=== PATIENT | male | born 1995 | race Caucasian/White ===

== ENCOUNTER 2024-04-07 21:22 | Emergency (ER) | payer OTHER, SELFPAY ==
--- NOTE | ~2024-04-07 | XR_ITS ---
EXAMINATION: XR chest 1V portable DATE: 04/08/2024 01:22 INDICATION: Chest pressure. TECHNIQUE: A single frontal view of the chest was obtained. COMPARISON: Chest 2 views 06/13/2006 FINDINGS: There is no pneumonia, pleural effusion, or pneumothorax. The heart size is normal. IMPRESSION: 1. No acute cardiopulmonary disease. Reviewed, dictated and finalized at location A. ITE[facility]
[2024-04-07 22:06] VITALS: BP 156/80; PULSE 95; RESP 18; TEMP 36.4; O2SAT 100
--- NOTE | 2024-04-07 22:06 | ECG_ITS ---
Test Date: 2024-04-07 22:12:51 Measurements Intervals [place] Rate: 100 P: 64 LA: 136 QRS: 70 QRSD: 97 T: 61 QT: 336 QTc: 433 Interpretive Statements SINUS TACHYCARDIA NONSPECIFIC ST AND T-WAVE ABNORMALITY ABNORMAL ECG No previous ECG available for comparison Electronically Signed On 04-08-2024 08:41:21 BUDGET CONTROLLER by Jm Kimbrough M.D.
[2024-04-08 00:47] VITALS: BP 157/77; PULSE 79; RESP 18; O2SAT 100
[2024-04-08 01:22] LABS: Basophils Absolute Auto 0.1 K/mm3 (0.0-0.1); Basophils Percent Auto 0.5 % (0.2-1.2); Eosinophils Percent Auto 0.1 % (0-4.4); Hematocrit 45.5 % (42.0-52.0); Hemoglobin 15.3 g/dL (14.0-18.0); Immature Granulocyte Absolute 0.02 K/mm3 (0.00-0.031); Immature Granulocyte Percent A 0.2 % (0-0.5); Lymphocytes Absolute Auto 1.65 K/mm3 (0.9-3.2); Lymphocytes Percent Auto 16.6 % (18.3-44.2); Mean Corpuscular HGB Conc 33.6 g/dl (32-36); Mean Corpuscular Hemoglobin 29.7 pg (26-34); Mean Corpuscular Volume 88.2 fl (80-100); Mean Platelet Volume 9.2 fl (7.4-10.4); Monocytes Absolute Auto 0.6 K/mm3 (0.1-0.6); Neutrophils Absolute Auto 7.6 K/mm3 (1.3-6.7); Neutrophils Percent Auto 76.6 % (45.5-73.1); Platelet Count Result 237 k/mm3 (150-375); Red Blood Count 5.16 M/mm3 (4.6-6.20); Red Cell Distribution Width 13.2 % (11.5-14.5)
[2024-04-08 01:36] LABS: Lipase 78 U/L (23-300)
[2024-04-08 01:38] LABS: Alanine Aminotransferase 16 U/L (6-50); Albumin Level 4.9 g/dL (3.5-5.1); Alkaline Phosphatase 55 U/L (38-126); Anion Gap 6 mmol/L (4-12); Aspartate Amino Transferase 21 U/L (17-59); Bilirubin,Total 0.7 mg/dL (0.2-1.3); Blood Urea Nitrogen 18 mg/dL (9-20); Calcium 9.8 mg/dL (8.4-10.2); Carbon Dioxide 26 mmol/L (22-30); Chloride 106 mmol/L (98-107); Creatine Kinase 68 U/L (55-170); Estimated CRCL calculation 114 ml/min; Estimated Glomerular Filt Rate > 60; Glucose 117 mg/dL (65-110); Magnesium 2.1 mg/dL (1.6-2.3); Sodium 138 mmol/L (137-145)
[2024-04-08 01:49] LABS: Troponin I < 0.012 ng/mL (0.000-0.034)
--- NOTE | 2024-04-08 01:54 | ED_ITS ---
HPI - General Adult General Chief complaint: Chest Pain Stated complaint: chest pain x3 days Time Seen by Provider: 04/08/24 00:59 History of Present Illness HPI narrative: Patient was 28-year-old gentleman who presents emergency department with chief complaint of chest discomfort. The patient states that he has has general pain all over has had 2/10 chest pain this states that has been going on for several days after he did a lot of chest exercises. The patient states he had an episode similar to this after he did chest exercises patient denies prior history of cardiac disease prior history for early cardiac disease Related Data Allergies Allergy/AdvReac Type Severity Reaction Status Date / Time No Known Allergies Allergy Verified 04/07/24 21:22 Review of Systems 2 Review of Systems: A 10 system review of systems was completed on the patient and is negative except for what is stated in the HPI. Nursing and ancillary documentation was reviewed. Exam 2 Narrative: GENERAL: Well-appearing, well-nourished, and in no acute distress. HEAD: Normocephalic, atraumatic. EYES: PERRLA and EOMI. ENT: Nares clear, no rhinorrhea or epistaxis. Mucous membranes moist. NECK: Supple. CHEST: Clear to auscultation. No respiratory distress. HEART: Regular rate and rhythm. No murmur heard. Normal peripheral pulses. ABDOMEN: Soft, nontender, nondistended, normal active bowel sounds. EXTREMITIES: Normal range of motion. No edema. SKIN: Warm, dry, no rash. NEURO: No focal deficits. Alert and oriented x3. PSYCH: Normal mood and affect. Course Vital Signs Vital signs: Vital Signs Temperature 36.4 C L 04/07/24 22:06 Pulse Rate 95 04/07/24 22:06 Respiratory Rate 18 04/07/24 22:06 Blood Pressure 156/80 H 04/07/24 22:06 Pulse Oximetry 100 04/07/24 22:06 Oxygen Delivery Room Air 04/07/24 22:06 Temperature 36.4 C L 04/07/24 22:06 Pulse Rate 79 04/08/24 00:47 Respiratory Rate 18 04/08/24 00:47 Blood Pressure 157/77 H 04/08/24 00:47 Pulse Oximetry 100 04/08/24 00:47 Oxygen Delivery Room Air 04/08/24 00:47 Medical Decision Making [facility] Narrative Medical decision making narrative: Differential diagnosis includes ACS, chest wall pain, musculoskeletal pain EKG showed no acute ischemic changes Initial troponin was negative electrolytes were within normal limits CBC was within normal limits Vital Signs Vital Signs: Vital Signs Temperature 36.4 C L 04/07/24 22:06 Pulse Rate 95 04/07/24 22:06 Respiratory Rate 18 04/07/24 22:06 Blood Pressure 156/80 H 04/07/24 22:06 Pulse Oximetry 100 04/07/24 22:06 Oxygen Delivery Room Air 04/07/24 22:06 Temperature 36.4 C L 04/07/24 22:06 Pulse Rate 79 04/08/24 00:47 Respiratory Rate 18 04/08/24 00:47 Blood Pressure 157/77 H 04/08/24 00:47 Pulse Oximetry 100 04/08/24 00:47 Oxygen Delivery Room Air 04/08/24 00:47 Lab Data 04/08/24 01:17 04/08/24 01:17 Labs: Lab Results 04/08/24 Range/Units 01:17 WBC 10.0 (4.5-10.0) K/mm3 RBC 5.16 (4.6-6.20) M/mm3 Hgb 15.3 (14.0-18.0) g/dL Hct 45.5 (42.0-52.0) % MCV 88.2 (80-100) fl MCH 29.7 (26-34) pg MCHC 33.6 (32-36) g/dl RDW 13.2 (11.5-14.5) % Plt Count 237 (150-375) k/mm3 MPV 9.2 (7.4-10.4) fl Immature Gran % (Auto) 0.2 (0-0.5) % Neut % (Auto) 76.6 H (45.5-73.1) % Lymph % (Auto) 16.6 L (18.3-44.2) % [place] % (Auto) 6.0 (2.6-8.5) % Eos % (Auto) 0.1 (0-4.4) % Baso % (Auto) 0.5 (0.2-1.2) % Lymph # (Auto) 1.65 (0.9-3.2) K/mm3 [place] # (Auto) 0.6 (0.1-0.6) K/mm3 Eos # (Auto) 0.0 (0-0.3) K/mm3 Baso # (Auto) 0.1 (0.0-0.1) K/mm3 Abs Immat Gran (auto) 0.02 (0.00-0.031) K/mm3 Absolute Neuts (auto) 7.6 H (1.3-6.7) K/mm3 Absolute Nucleated RBC 0.000 (0.0-0.012) K/mm3 Nucleated RBC % 0.0 (0.0-0.2) % Sodium 138 (137-145) mmol/L Potassium 4.0 (3.4-5.0) mmol/L Chloride 106 (98-107) mmol/L Carbon Dioxide 26 (22-30) mmol/L Anion Gap 6 (4-12) mmol/L BUN 18 (9-20) mg/dL Creatinine 1.00 (0.7-1.3) mg/dL Estim Creat Clear Calc 114 ml/min Estimated GFR > 60 (59 - ) Glucose 117 H (65-110) mg/dL Calcium 9.8 (8.4-10.2) mg/dL Magnesium 2.1 (1.6-2.3) mg/dL Total Bilirubin 0.7 (0.2-1.3) mg/dL AST 21 (17-59) U/L ALT 16 (6-50) U/L Alkaline Phosphatase 55 (38-126) U/L Total Creatine Kinase 68 (55-170) U/L Troponin I < 0.012 (0.000-0.034) ng/mL Total Protein 8.0 (6.3-8.2) g/dL Albumin 4.9 (3.5-5.1) g/dL Lipase 78 (23-300) U/L Discharge Plan Discharge Clinical Impression: Atypical chest pain Patient Disposition: Home, Self-Care Condition: Stable Instructions: Antibiotic Form Patient Language: Guinean Follow-up/Referrals: Dharmesh Bernard DO [Physician] - PHYSICIAN,FARM EQUIPMENT MECHANIC [Primary Care Provider] - Time of Disposition: 01:59
--- OUTSIDE RECORDS SUMMARY | 2024-04-15 02:49 | XMS_ITS | Clinical Summary ---
Author Organization [facility] Address [address] [place] [address] Care Team Providers Care City Detective Name Role Phone Prosper Charles MD Primary Care Provider [phone] Toñito Romeo MD Unavailable Source Comments [facility],non-owned Affiliates and Associated Physician Practices is amultiple site organization consisting of ambulatory clinics and hospital sitesin [place], [place], [place] and [place]. This disclosure is being madepursuant to the Care Everywhere program and may not contain all information available regarding this patient. Last updated 18.[facility] Allergies No known active allergies Medications Be aware that medications may not be up to date on this document. Always verify current medications with the patient. No known medications Active Problems Patient Care Coordination No te Formatting of this note migh t be different from the original. Echo every 2 years Last echo: 10-29-13 Due 2015 Scheduled: 10-20-15 Dexa Last dexa: 11-01-11 Due: 2017 Problem Noted Date Diagnosed Date Acute lymphoid leukemia in remission Family History Medical History Relation Name Comments Diabetes Maternal Grandfather Cancer Mother Diabetes Mother gestational Cancer Paternal Grandfather Relation Name Status Comments Maternal Grandfather Mother Paternal Grandfather Social History Tobacco Use Types Packs/Day Years Used Date Smoking Tobacco: Never Smokeless Tobacco: Never Alcohol Use Standard Drinks/Week Comments No 0 (1 standard drink = 0.6 oz pur e alcohol) Sex and Gender Information Value Date Recorded Sex Assigned at Not on file Gender Identity Not on file Sexual Orientation Not on file Last Filed Vital Signs Vital Sign Reading Time Taken Comments Blood Pressure 136/80 10/20/2015 3:00 PM CDT Pulse 109 10/20/2015 12:00 PM CDT Temperature 36.8 ??C (98.3 ??F) 10/20/2015 12:00 PM C DT Respiratory Rate 12 10/20/2015 12:00 PM CDT Oxygen Saturation 99% 10/20/2015 12:00 PM CDT Inhaled Oxygen Concentration - - Weight 67.6 kg (149 lb 0.5 oz) 10/20/2015 12:00 PM CDT Height 182.9 cm (6') 10/20/2015 12:00 PM CDT Body Mass Index 20.21 10/20/2015 12:00 PM CDT Plan of Treatment Health Maintenance Due Date Last Done Comments COVID-19 VACCINE (#1) 2001 PNEUMOCOCCAL VACCINE (1 of 2 - PCV) 2002 HIV SCREENING 09/06/2011 HEPATITIS C SCREENING 09/01/2014 DTAP/TDAP/TD VACCINES (1 - Tdap) 09/06/2015 HEPATITIS B VACCINE (1 of 3 - 19+ 3-dose series) 09/06/2015 ZOSTER VACCINE (1 of 2) 09/06/2015 DEPRESSION SCREENING 04/14/2023 INFLUENZA VACCINE (#1) 2023 HIB VACCINE Aged Out No longer eligi ble based on patient's age to complete this topic HPV VACCINE Aged Out No longer eligi ble based on patient's age to complete this topic MENINGOCOCCAL VACCINE Aged Out No magdalena marixa eligible based on patient's age to complete this topic Care Teams City Detective Relationship Specialty Start Date End Date Prosper Charles MD PCP - General Family Medicine 10/04/11 Toñito Romeo MD [address] [place] [address] Medical Administrator Pediatrics 10/04/11
--- OUTSIDE RECORDS SUMMARY | 2024-04-15 02:49 | XMS_ITS | Referral Summary ---
Author Organization [facility] Address [address] [place] [address] Care Team Providers Care Software Configuration Manager Name Role Phone Prosper Charles MD Primary Care Provider [phone] Toñito Romeo MD Unavailable Source Comments [facility],non-owned Affiliates and Associated Physician Practices is amultiple site organization consisting of ambulatory clinics and hospital sitesin [place], [place], [place] and [place]. This disclosure is being madepursuant to the Care Everywhere program and may not contain all information available regarding this patient. Last updated 18.[facility] [employer] Allergies No known active allergies Medications Be [...] Diagnosed Date Acute lymphoid leukemia in remission Social History Tobacco Use Types Packs/Day Years [...] 10/20/2015 12:00 PM CDT Plan of Treatment Not on file Care Teams Software Configuration Manager Relationship Specialty Start Date End Date Prosepr Charles MD PCP - General Family Medicine 10/04/11 Toñito Romeo MD [address] [place] [address] Supervisor Stave Cutting Pediatrics 10/04/11
--- OUTSIDE RECORDS SUMMARY | 2024-04-15 02:50 | XMS_ITS | Encounter Summary ---
Author Organization [facility] Address [address] [place] [address] Care Team Providers Care Dedicated Owner Operator Name Role Phone Prosper Charles MD Primary Care Provider Toñito Romeo MD Unavailable Encounter Details Date Type Department Care Team (Late st Contact Info) Description 10/29/2011 Orders Only [facility] at [address] [address] Diana Pollard RN Leukemia, acute, in remission (HCC) Social History Tobacco Use Types Packs/Day Years Used Date Smoking Tobacco: Never Smokeless Tobacco: Never Alcohol Use Standard Drinks/Week Comments No 0 (1 standard drink = 0.6 oz pur e alcohol) Sex and Gender Information Value Date Recorded Sex Assigned at Not on file Gender Identity Not on file Sexual Orientation Not on file documented as of this encounter Plan of Treatment Not on file documented as of this encounter Procedures Procedure Name Priority Date/Time Associated Diagnosis Comments DEXA BONE DENSITY AXIAL SKELETON Routine 11/01/2011 12:09 PM CDT Leukemia, acute, in remission (HCC) documented in this encounter Results * DEXA BONE DENSITY AXIAL SKELETON (11/01/2011 12:09 PM CDT) Anatomical Region Laterality Modality Radiographic Sushila ging 11/01/2011 1:20 PM CDT Impressions 11/01/2011 4:39 PM CDT No significant decrease in bone mineral density when compared with age-matched norms.. Dictated by Jose Armando Coulter M.D. Narrative 11/01/2011 4:39 PM CDT EXAM: Bone densitometry COMPARISON: None TECHNIQUE: [employer] A ([id number]) Software version 13.3 [facility] FINDINGS: Referring Physician: Toñito Romeo Patient age: 16 Gender: Male Height: 175 cm Weight: 56.7 kg Indication: Acute leukemia in remission Technical quality: Adequate Total Bone mineral content: 2269.62 g Total Bone mineral density: 1.130 g/cm2 Z-score: 1.0 Procedure Note [place] [place] - 11/01/2011 EXAM: Bone densitometry COMPARISON: None TECHNIQUE: [employer] A (S/[id number]) Software version 13.3 [facility] FINDINGS: Referring Physician: Toñito Romeo Patient age: 16 Gender: Male Height: 175 cm Weight: 56.7 kg Indication: Acute leukemia in remission Technical quality: Adequate Total Bone mineral content: 2269.62 g Total Bone mineral density: 1.130 g/cm2 Z-score: 1.0 IMPRESSION No significant decrease in bone mineral density when compared with age-matched norms.. Dictated by Jose Armando Coulter M.D. Toñito Romeo MD DEXA ORDERABLES documented in this encounter Visit Diagnoses Diagnosis Leukemia, acute, in remission (HCC)- Primary Acute leukemia of unspecified cell type in remission Leukemia, acute, in remission (HCC) Acute leukemia of unspecified cell type in remission documented in this encounter Care Teams Dedicated Owner Operator Relationship Specialty Start Date End Date Prosper Charles MD PCP - General Family Medicine 10/04/11 Toñito Romeo MD [address] [place] [id number] Swinging Cut Off Saw Operator Pediatrics 10/04/11 documented as of this encounter
--- OUTSIDE RECORDS SUMMARY | 2024-04-15 02:50 | XMS_ITS | Encounter Summary ---
Author Organization [facility] Address [address] [place] [address] Care Team Providers Care Gym Manager Name Role Phone Prosper Charles MD Primary Care Provider Toñito Romeo MD Unavailable Reason for Visit * Reason Onset Date Comments Vaccine Question 05/04/2020 Encounter Details Date Type Department Care Team (Late st Contact Info) Description 05/04/2020 Telephone [facility] at [address] [id number] Diana Pollard, RN Vaccine Question Social History Tobacco Use Types Packs/Day Years Used Date Smoking Tobacco: Never Smokeless Tobacco: Never Alcohol Use Standard Drinks/Week Comments No 0 (1 standard drink = 0.6 oz pur e alcohol) Sex and Gender Information Value Date Recorded Sex Assigned at Not on file Gender Identity Not on file Sexual Orientation Not on file documented as of this encounter Miscellaneous Notes * Telephone Encounter - Diana Pollard RN - 05/04/2020 10:01 AM CST Returned moms call regarding Yaya getting a Covid vaccine. There are no contraindications to Yaya receiving the vaccine, mom receptive to this. Yaya has not been seen in [facility] since 2016 and does not regularly see his PCP. Has not had blood work since last visit. Reviewed recommendations for follow-up with mom, including recommended testing. Mom will discuss with Yaya and email me to schedule an appointment. EN BARREL MECHANIC documented in this encounter Plan of Treatment Not on file documented as of this encounter Visit Diagnoses Not on filedocumented in this encounter Care Teams Gym Manager Relationship Specialty Start Date End Date Prosper Charles MD PCP - General Family Medicine 10/04/11 Toñito Romeo MD [address] [place] [address] Applications Support Specialist Pediatrics 10/04/11 documented as of this encounter
--- OUTSIDE RECORDS SUMMARY | 2024-04-15 02:50 | XMS_ITS | Encounter Summary ---
Author Organization [facility] Address [address] [place], [place] [id number] Care Team Providers Care Compressor Repairer Name Role Phone Unknown, Notinfile Primary Care Provider Unavail able Encounter Details Date Type Department Care Team (Late st Contact Info) Description 08/26/2018 10:20 PM CDT Lab [address] [address] Social History Tobacco Use Types Packs/Day Years Used Date Smoking Tobacco: Never Assessed Sex and Gender Information Value Date Recorded Sex Assigned at Not on file Legal Sex Male 11:51 PM PRODUCTION DESIGNER Gender Identity Not on file Sexual Orientation Not on file documented as of this encounter Plan of Treatment Not on file documented as of this encounter Procedures Procedure Name Priority Date/Time Associated Diagnosis Comments VARICELLA ZOSTER ANTIBODY, IGG Routine 08/26/2018 9:00 AM CDT documented in this encounter Results * Varicella zoster antibody, IgG (08/26/2018 9:00 AM CDT) VZV IgG Negative Negative [facility] Comment: Interpretive Data Negative: ??No detectable antibody to Varicella-zoster ? virus. ??Such individuals ? are presumed to be uninfected with VZV and to ? be susceptible to primary infection. Equivocal: Presence or absence of detectable antibodies ? to VZV IgG cannot be determined and the test ? should be repeated. Positive: ??Indicated presence of detectable antibody to ? VZV. ??Indicative of current ? or previous infection or vaccination. Current interpretive data was last revised on 2016. Blood specimen (specimen) 08/26/2018 9:00 AM CDT 08/26/2018 10:18 PM CDT Narrative [facility] - 08/27/2018 10:53 AM CDT us Jaden Lombardo MD LAB MICROBIOLOGY - GENERAL OR DERABLES Final Result [facility] [place] [address] documented in this encounter Visit Diagnoses Not on filedocumented in this encounter Care Teams Compressor Repairer Relationship Specialty Start Date End Date Unknown, Notinfile PCP - General 08/26/18 documented as of this encounter
--- OUTSIDE RECORDS SUMMARY | 2024-04-15 02:50 | XMS_ITS | Encounter Summary ---
Author Organization [facility] Address [address] [place] [address] Care Team Providers Care Rattlesnake Farmer Name Role Phone Prosper Charles MD Primary Care Provider [phone] Encounter Details Date Type Department Care Team (Late st Contact Info) Description 10/01/2011 Orders Only [facility] at [address] [address] Diana Pollard, RN Leukemia, acute lymphoid, in remission (HCC) Social History Tobacco Use [...] documented as of this encounter Visit Diagnoses Diagnosis Leukemia, acute lymphoid, in remission (HCC)- Primary Acute lymphoid leukemia in remission documented in this encounter Care Teams Rattlesnake Farmer Relationship Specialty Start Date End Date Prosper Charles MD [address] [place] [address] PCP - General 05/11/09 10/03/11 documented as of this encounter
--- OUTSIDE RECORDS SUMMARY | 2024-04-15 02:50 | XMS_ITS | Encounter Summary ---
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) Procedures ECHO CONSULT - PEDIATRIC Toñito Romeo MD [address] [place] [address] Referral ID Status Reason Start Date Expiration Date Visits Re quested Visits Authorized [id number] Closed 09/15/2015 03/13/2016 1 1 Reason for Visit * Cardiac (Routine) - Closed Specialty Diagnoses / Procedures Referred By Alberta campos Referred To Contact Cardiology Diagnoses 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 Stat.:Outpatient Room: ECHO ONLY Reason for Study:Evaluate function. Chemo F/U History / Clinical:2-d echo with doppler and color-flow Procedures:2D Non-congenital, Doppler Complete, Color Flow Visit ID: [id number] SUMMARY: Impression: Structurally normal heart. Normal biventricular systolic function. Findings: Anatomic Relationships: Abdominal situs not evaluated. There is levocardia. Atrial situs solitus. The AV alignment is concordant. The ventricular looping is D-looped. The VA connection is concordant. The arterial relationships are normal. Systemic Veins: Normal right SVC. Normal IVC. Pulmonary Veins: Pulmonary veins drain normally to LA. Right Atrium: The right atrial size is normal. Left Atrium: The left atrial size is normal. Atrial Septum: Intact atrial septum. Left to right atrial shunt, none. Tricuspid Valve: The tricuspid valve is structurally normal. There is no stenosis. There is physiologic regurgitation present. Mitral Valve: The mitral valve is structurally normal. There is no stenosis. There is no regurgitation present. Right Ventricle: The cavity size is normal. The wall thickness is normal. The systolic function is normal. RV Outflow Tract: The outflow tract is normal. Left Ventricle: The cavity size is normal. The wall thickness is normal. The systolic function is normal. LV Outflow Tract: The outflow tract is normal. Ventricular Septum: The septal motion is normal. There is no defect with no shunting. Pulmonary Valve: The pulmonic valve is structurally normal. There is no stenosis. There is physiologic regurgitation present. Aortic Valve: The aortic valve is structurally normal. There is no stenosis. There is no regurgitation present. Pulmonary Artery: The MPA is normal. The LPA is normal. The RPA is normal. Aorta: The aortic root is normal. The aortic arch is patent. The arch sidedness is not evaluated. PDA: No PDA with no shunting. Coronary Arteries: Not visualized. Pericardium: No pericardial effusion. MEASUREMENTS: MMODE Ventricular Septum IVSd 8.1 mm (zsc -1.2) IVSs 10 mm (zsc -1.9) LVPW LVPWd 5 mm (zsc -3.4) LVPWs 12.3 mm (zsc -1.6) Ratios LA/Ao 1.2 IVS/LVPW 1.6 Aorta Ao Rt 25 mm Left Atrium LAID 31 mm Left Ventricle LVIDd 57.2 mm (zsc 1.6) LV EF 73.4 % LVIDs 32.6 mm (zsc -0.1) LV%fs 43 % LVEDV 161 cc LV Mass 133 g (zsc -1.4) Index 70.4 g/m?? LVESV 42.8 cc LV SV 118 cc Signed 10/20/2015 03:30 PM Alisha Garcia MD Toñito Romeo MD ECHO ORDERABLES Performing Organization Address City/State/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
--- OUTSIDE RECORDS SUMMARY | 2024-04-15 02:50 | XMS_ITS | Encounter Summary ---
Author Organization [facility] Address [address] [place] [address] Care Team Providers Care Denial Management Representative Name Role Phone Prosper Charles MD Primary Care Provider [phone]- [phone] Toñito Romeo MD Unavailable Reason for Visit * Reason Onset Date Comments Appointment 10/29/2011 Let mother know to arrive a little before noon this Friday because pt scheduled for dexa bone density exam at 12pm, then will have LTFU visit following. Mother states that is fine and will be here then. Encounter Details Date Type Department Care Team (Late st Contact Info) Description 10/29/2011 Telephone [facility] at [address] [address] Diana Pollard, RN Appointment (Let mother know to arrive a little before noon this Friday because pt scheduled for dexa bone density exam at 12pm, then will have LTFU visit following. Mother states that is fine and will be here then. ) Social History Tobacco Use Types Packs/Day Years [...] on filedocumented in this encounter Care Teams Denial Management Representative Relationship Specialty Start Date End Date Prosper Charles MD PCP - General Family Medicine 10/04/11 Toñito Romeo MD [address] [place] [id number] Hot Metal Crane Operator Pediatrics 10/04/11 documented as of this encounter
--- OUTSIDE RECORDS SUMMARY | 2024-04-15 02:50 | XMS_ITS | Encounter Summary ---
Author Organization [facility] Address [address] [place] [address] Care Team Providers Care Furnace Operator Name Role Phone Prosper Charles MD Primary Care Provider [phone]- [phone] Toñito Romeo MD Unavailable Encounter Details Date Type Department Care Team (Latest Contact Info) Description 10/23/2012 12:53 PM CDT - 10/23/2012 11:59 PM CDT Hospital Encounter [facility] at [address] [phone] Toñito Romeo MD [address] [place] [phone] Discharge Disposition: Home or Self Care Social [...] on file documented as of this encounter Last Filed Vital Signs Vital Sign Reading Time Taken Comments Blood Pressure 117/74 10/23/2012 1:04 PM CDT Pulse 70 10/23/2012 1:04 PM CDT Temperature 37.1 ??C (98.8 ??F) 10/23/2012 1:04 PM CD T Respiratory Rate 16 10/23/2012 1:04 PM CDT Oxygen Saturation 99% 10/23/2012 1:04 PM CDT Inhaled Oxygen Concentration - - Weight 60.8 kg (134 lb 0.6 oz) 10/23/2012 1:04 P M CDT Height 180.5 cm (5' 11.06 ) 10/23/2012 1:04 PM C DT Body Mass Index 18.66 10/23/2012 1:04 PM CDT Body Mass Index Percentile 20.45% 10/23/2012 1:0 4 PM CDT Growth Chart: CDC (Boys, 2-2 0 Years) documented in this encounter Progress Notes * Toñtio Romeo MD - 10/23/2012 3:25 PM CDT Onocology Long-Term Follow-Up Clinic Form Diagnosis: T-cell, ALL Date of Last therapy: 05/16/2005 Major Complications: none Recommended Surveillance: Echo every 2 years PFT NA Other Dexa scan every 5 years See discharge summary note for details of chemotherapy received. Interval History: Yyaa was seen here a few weeks ago with testicular pain and swelling. His CBC was reassuring and scrotal ultrasound was negative. His pain has subsequently resolved. Otherwise he is without significant concerns or complaints today. He is rarely ill. Past Medical History Diagnosis Date ??? Acute lymphoid leukemia in remission Past Surgical History Procedure Date ??? Port-a-cath 07-15-03 placed ??? Port-a-cath 10-08-05 removed Family History Problem Relation Age of Onset ??? Diabetes Maternal Grandfather ??? Cancer Paternal Grandfather ??? Cancer Mother ??? Diabetes Mother gestational There is no immunization history on file for this patient. History Social History ??? Marital Status: Single Spouse Name: N/A Number of Children: N/A ??? Years of Education: N/A Occupational History ??? Not on file. Social History Main Topics ??? Smoking status: Never Smoker ??? Smokeless tobacco: Never Used ??? Alcohol Use: No ??? Drug Use: No ??? Sexually Active: Not on file Other Topics Concern ??? Caffeine Concern No 1 a day ??? Sleep Concern No 10-6 ??? Stress Concern Yes pressure about getting a's ??? Special Diet No protein, fast food x 3 week, milk ??? Exercise Yes swims, golf, umpire ??? Bike Helmet Yes ??? Seat Belt Yes no texting ??? Self-Exams Yes testicular Social History Narrative Lives at home with mom, dad, and sisterJunior at [employer]- straight A's No Known Allergies No current outpatient prescriptions on file. ROS: 10 systems tested and all negative Physical Exam: Constitutional: BP 117/74 Pulse 70 Temp 98.8 ??F Resp 16 Ht 1.805 m (5' 11.06 ) Wt 60.8 kg (134 lb 0.6 oz) BMI 18.66 kg/m2 SpO2 99%, Body mass index is 18.66 kg/(m^2). BSA (Calculated): 1.75 General Appearance: alert, no distress and smiling Eyes, Nose, Mouth/Throat: Eyes,Normal Ears: Otoscopic exam: Normal Nose and sinus: Normal Mouth and throat: Normal Neck: Normal Lymphatic: No abnormally enlarged lymph nodes. Respiratory: respiratory effort normal, clear to auscultation, normal breath sounds bilaterally Cardiovascular: normal rate, regular rhythm, normal S1, S2, no murmur Gastrointestinal: abdomen soft, non-tender and no hepatosplenomegaly Genitourinary: Maynor stagin, no testicular mass or tenderness seen. Musculoskeletal: Normal muscle tone. All joints with full range of motion. No deformity or tenderness. Neurologic: Cranial nerves: intact Strength: normal Sensation: intact Gait/cerebellar: normal Performance Score: [place]: 100 - fully active, normal Results: No labs ordered today since he had a normal CBC a few weeks ago. Impression: Yaya continues to do well without signs of recurrent disease or secondary malignancy. Plan: Follow up in one year Testing: ECHO documented in this encounter Miscellaneous Notes * Miscellaneous Scans - Document, Scanned - 10/26/2012 7:41 PM CDT documented in this encounter Plan of Treatment Not on file documented as of this encounter Visit Diagnoses Diagnosis Acute lymphoid leukemia, without mention of having achieved remission(204.00) (HCC) Acute lymphoid leukemia, without mention of having achieved remission documented in this encounter Care Teams Furnace Operator Relationship Specialty Start Date End Date Prosper Charles MD PCP - General Family Medicine 10/04/11 Toñito Romeo MD [address] [place] [address] Pin Inserter Pediatrics 10/04/11 documented as of this encounter
--- OUTSIDE RECORDS SUMMARY | 2024-04-15 02:50 | XMS_ITS | Encounter Summary ---
Author Organization [facility] Address [address] [place] [address] Care Team Providers Care Customer Service Trainer Name Role Phone Prosper Charles MD Primary Care Provider [phone] Toñito Romeo MD Unavailable Reason for Visit * Reason Onset Date Comments Results 11/03/2013 Encounter Details Date Type Department Care Team (Late st Contact Info) Description 11/03/2013 Telephone [facility] [address] [place] [address] Jane Stevenson, LIVESTOCK DEALER-[address] [phone] Results Social History Tobacco Use Types Packs/Day Years [...] on filedocumented in this encounter Care Teams Customer Service Trainer Relationship Specialty Start Date End Date Prosper Charles MD PCP - General Family Medicine 10/04/11 Toñito Romeo MD [address] [place] [id number] Pen Or Pencil Assembly Machine Operator Pediatrics 10/04/11 documented as of this encounter
--- OUTSIDE RECORDS SUMMARY | 2024-04-15 02:50 | XMS_ITS | Encounter Summary ---
Author Organization [facility] Address [address] [place] [address] Care Team Providers Care Land Conservation Specialist Name Role Phone Prosper Charles MD Primary Care Provider [phone]- [phone] Encounter Details Date Type Department Care Team (Latest Contact Info) Description 11/07/2009 12:01 AM CDT - 11/07/2009 11:59 PM CDT Hospital Encounter [facility] at [address] [phone] Srinivas Oliver MD [address] [place] [phone] Hematology Discharge Disposition: Home or Self Care Social History Tobacco Use Types Packs/Day Years Used Date Smoking Tobacco: Never Alcohol Use Standard Drinks/Week Comments No 0 (1 standard drink = 0.6 oz pur e alcohol) Sex and Gender Information Value Date Recorded Sex Assigned at Not on file Gender Identity Not on file Sexual Orientation Not on file documented as of this encounter Last Filed Vital Signs Vital Sign Reading Time Taken Comments Blood Pressure 100/66 11/07/2009 12:00 PM CDT Pulse 60 11/07/2009 12:00 PM CDT Temperature 37.1 ??C (98.8 ??F) 11/07/2009 1 2:00 PM CDT Respiratory Rate 16 11/07/2009 12:0 0 PM CDT Oxygen Saturation 99% 11/07/2009 12: 00 PM CDT Inhaled Oxygen Concentration - - Weight 46.1 kg (101 lb 10.1 oz) 010 12:00 PM CDT Height 159.2 cm (5' 2.68 ) 11/07/2009 1 2:00 PM CDT Body Mass Index 18.19 11/07/2009 12:00 PM CDT Body Mass Index Percentile 43.91% 11/07 12:00 PM CDT Growth Chart: [facility] (Boys, 2-2 0 Years) documented in this encounter H&P Notes * Srinivas Oliver MD - 11/07/2009 2:42 PM CDT Hematology/Oncology Progress/Admission Note 11/07/2009 Yaya Gonsalves PCP: Prosper Charles MD Diagnosis: T cell ALL Protocol/Regimen: per [id number] No Known Allergies. No current outpatient prescriptions on file prior to encounter. Home medications none Interval History Completed 7th grade; playing on traveling baseball team all summer; now has braces and glasses. No health concerns. Past Medical History: unchanged Family Medical History: unchanged Social History: Unchanged; continues to have some anxiety r/t illnesses and cancer recurrence; concern re: maintaining straight A's in school. Review of Systems: 1) General: Fever: no Wt/appetite change: no Other:no 2) Heme: Bruising: no Other:no 3) Skin: Rash: no Other: no 4) ENT: Congestion:no Rhinorrhea: no Epistaxis: no Sore Throat: no Change in Hearing: no Earache: no Stomatitis: no 5) Resp/CV: Shortness of Breath: no Chest Pain: no Cough:no Palpitation: no Other: no 6) GI: Pain: no Jaundice: no Nausea: no Vomiting: no Diarrhea: no Constipation: no Other: no 7) : Frequency: no Dysuria: no Menorrhagia/Dysmenorrhea: no Hematuria: no Other: no 8) Musculo-skeletal: Pain: no Swelling/Edema: no Change in ROM: no Cyanosis: no Other: no 9) Neuro: Headache: no Weakness: no Neuralgia: no Vertigo: no Seizure: no Other: no 10) Psych: School Grade: 8; Behavior: no Other: no 11) Allergy/Immun: no 12) Pain: no 13) Nutritional Status: good Physical Exam Constitutional: BP 100/66 Pulse 60 Temp 98.8 ??F Resp 16 Ht 1.592 m (5' 2.68 ) Wt 46.1 kg (101 lb 10.1 oz) SpO2 99% BSA (Calculated): 1.43 General Appearance: No acute distress, quiet, well appearing Head: No nasal congestion or discharge Skin: no rashes, bruises, or petechiae Ears: tympanic membranes normal Eyes: anicteric: pupils equal, round, reactive to light; intact extra-ocular movements; Mouth/throat: no sores, erythema, exudates, or mucosal pallor. Tonsils not enlarged. Neck: supple without masses Lymph nodes: no palpable lymphadenopathy Chest: lungs clear to auscultation Heart: normal S1 and S2, no murmur Back: no spinous or CVA tenderness Abdomen: soft, non-tender, no masses or hepatosplenomegaly Genitalia: deferred; no facial hair Extremities: no focal swelling or tenderness; full ROM Neuro: Cranial nerves: intact Strength: grossly normal Sensation: grossly intact Gait/cerebellar: normal Performance Score: Karnofsky: 100-Normal, no complaints, no evidence of disease Lab and/or Imaging Studies Recent Results (from the past 24 hours) CBC W MANUAL DIFFERENTIAL Collection Time 11/07/09 1:20 PM Component Value Range ??? WBC 4.71 4.5 - 14.5 (K/cumm) ??? RBC 4.85 4.50 - 5.30 (mill/cumm) ??? Hgb 13.8 13.0 - 16.0 (gm/dl) ??? Hct 38.9 37.0 - 49.0 (%) ??? MCV 80.2 78.0 - 98.0 (cu microns) ??? MCH 28.5 25.0 - 35.0 (uug) ??? MCHC 35.5 31.0 - 37.0 (%) ??? RDW 12.8 (%) ??? MPV 9.5 (fl) ??? Plt Ct K/CUMM 227 100 - 400 (K/cumm) ??? Manual Diff Comment Done ??? Seg Manual 59 24 - 66 (%) ??? Lymph Manual 35 22 - 61 (%) ??? [place] Manual 4 3 - 15 (%) ??? Eos Manual 1 0 - 10 (%) ??? Atyp Lymph Manual 1 (%) ??? RBC Morph Normal Procedures No current outpatient prescriptions on file. 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 He was treated withintensive chemotherapy, including: anthracycline 235mg/m2; cytoxan 3Gm/m2; MTX 5Gm/m2/dose x 4; cranial radiation to 1260 in 7 fractions. Last ECHO in 02/19 with LV fs of 29%. He completed all therapy in 05/20. Plan CBC today; echocardiogram every other year, so schedule one with next visit. One more six month f/u, then he can change to annual f/u. Follow-Up Six months for PE, CBC and echo Attending: I have examined the patient and reviewed the history and laboratory results. I agree with the findings and plan outlined here; additionally, his testes are normal in size. Will get cardiac echo at next visit in 6-7 months. Srinivas Oliver M.D. documented in this encounter Miscellaneous Notes * Miscellaneous Scans - Document, Scanned - 11/07/2009 12:00 AM CDT documented in this encounter Plan of Treatment Scheduled Orders Name Type Priority Associated Diagnoses Orde r Schedule CBC W MANUAL DIFFERENTIAL Lab [place] Acute Lymphoid Leukemia in Remission (HCC) ONCE for 1 Occurrences starting 11/07/2009 until 11/07/2009 documented as of this encounter Procedures Procedure Name Priority Date/Time Associated Diagnosis Comments CBC W MANUAL DIFFERENTIAL Timed 11/07/2009 1:20 PM CDT Acute Lymphoid Leukemia in Remission (HCC) documented in this encounter Results * CBC W MANUAL DIFFERENTIAL (11/07/2009 1:20 PM CDT) WBC 4.71 4.5 - 14.5 K/cumm [facility] RBC 4.85 4.50 - 5.30 mill/cumm [facility] Hemoglobin 13.8 13.0 - 16.0 gm/dl [facility] Hematocrit 38.9 37.0 - 49.0 % [facility] MCV 80.2 78.0 - 98.0 cu microns [facility] MCH 28.5 25.0 - 35.0 uug [facility] MCHC 35.5 31.0 - 37.0 % [facility] RDW 12.8 % [facility] MPV 9.5 fl [facility] Platelet Count 227 100 - 400 K/cumm [facility] Comment Manual Diff Done [facility] Neutrophils % Manual 59 24 - 66 % [facility] Lymphocytes % Manual 35 22 - 61 % [facility] Monocytes % Manual 4 3 - 15 % [facility] Eosinophils % Manual 1 0 - 10 % [facility] Atypical Lymphocyte % Manual 1 % [facility] RBC Morphology Normal [facility] BLOOD SPECIMEN / Unknown 11/07/2009 1:20 PM CDT 11/07/2009 1:24 PM CDT Srinivas Oliver MD LAB - HEMATOLOGY O RDERABLES Performing Organization Address City/State/[facility] Co de Phone Number [facility] [address] [place] [address] documented in this encounter Visit Diagnoses Diagnosis 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) Acute lymphoid leukemia in remission documented in this encounter Care Teams Land Conservation Specialist Relationship Specialty Start Date End Date Prosper Charles MD PROFESSION[address] [place] [address] PCP - General 05/11/09 10/03/11 documented as of this encounter
--- OUTSIDE RECORDS SUMMARY | 2024-04-15 02:50 | XMS_ITS | Clinical Summary ---
Author Organization [facility] [address] Address [address] [place] [phone] Care Team Providers Care Bacteriologist Industrial Name Role Phone Unknown, Notinfile Primary Care Provider Unavail able Allergies No known active allergies Medications No known medications Active Problems Problem Noted Date Diagnosed Date Acute lymphoid leukemia in remission 03/30/2022 Social History Tobacco Use Types Packs/Day Years Used Date Smoking Tobacco: Never Tobacco Cessation:Counseling Given: Not Answered Personal Safety Answer Date Recorded Getting School Help Needed Not on file 06/07 Sex and Gender Information Value Date Recorded Sex Assigned at Not on file Legal Sex Male 11:51 PM EVICTION SPECIALIST Gender Identity Not on file Sexual Orientation Not on file Obstetrics History Last Filed Vital Signs Vital Sign Reading Time Taken Comments Blood Pressure 128/80 03/30/2022 9:32 AM EVICTION SPECIALIST Pulse 99 03/30/2022 9:32 AM EVICTION SPECIALIST Temperature 36.9 ??C (98.5 ??F) 03/30/2022 9:32 AM CS T Respiratory Rate 16 03/30/2022 9:32 AM EVICTION SPECIALIST Oxygen Saturation 98% 03/30/2022 9:32 AM EVICTION SPECIALIST Inhaled Oxygen Concentration - - Weight 84.4 kg (186 lb) 03/30/2022 9:32 AM EVICTION SPECIALIST Height 188 cm (6' 2 ) 03/30/2022 9:32 AM EVICTION SPECIALIST Body Mass Index 23.88 03/30/2022 9:32 AM EVICTION SPECIALIST Plan of Treatment Health Maintenance Due Date Last Done Comments Depression Screening 1996 Hepatitis C Screening 1996 Pneumococcal vaccine <65 (1 of 2 - PCV) 2002 DTaP/Tdap/Td Vaccine (1 - Tdap) 09/06/2007 Varicella Vaccines (1 of 2 - 13+ 2-dose series) 2009 Hepatitis B Screening 2014 Regular Well Visit/Exam 18-64 2014 Zoster Vaccine (1 of 2) 09/06/2015 Covid-19 Vaccine (2023-2 5 season) 2023 01/27/2021, 05/26/2020, 05/08/2020 Influenza Vaccine (#1) 2023 , 01/17/2021 HPV Vaccines Aged Out No longer eligi ble based on patient's age to complete this topic Insurance [facility] CHOICE PLUS [facility] CHOICE PLUS Care Teams Bacteriologist Industrial Relationship Specialty Start Date End Date Unknown, Notinfile PCP - General 08/26/18
--- OUTSIDE RECORDS SUMMARY | 2024-04-15 02:50 | XMS_ITS | Encounter Summary ---
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) Procedures ECHO CONSULT - PEDIATRIC Toñito Romeo MD [address] [place] [id number] Referral ID Status Reason Start Date Expiration Date Visits Re quested Visits Authorized [id number] Closed 09/17/2013 03/16/2014 1 1 Reason for Visit * (Routine) - Closed Specialty Diagnoses / Procedures Referred By Alberta campos Referred To Contact Cardiology Procedures ND ECHO XTHORACIC,MADONNA ANOM,COMPLETE [address] [id number] [address] Referral ID Status Reason Start Date Expiration Date Visits Re quested Visits Authorized [id number] Closed 10/29/2013 04/27/2014 1 1 Encounter Details Date Type Department Care Team (Latest Contact Info) Description 10/29/2013 2:30 PM CDT - 10/29/2013 11:59 PM CDT Hospital [facility] [address] [place] [address] Toñ[place] [address] [place] [place] [address] Devora Valente MD [address] [place] [id number] Discharge Disposition: Home or Self Care Social [...] Diagnosis Comments ECHO CONSULT - PEDIATRIC Routine 10/29/2013 2:45 PM CDT 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 HR: BP: / age: GODFREY: Maternal age: LOFT PATTERNMAKER: ??Devora Valente MD PEDIATRIC ECHO INSURANCE EXAMINER: ??Aneta Jones [facility] Allergies: NKA History/ Indications: acute lymphoid leukemia in remisson Procedure: The procedure was performed in the echo lab. Anatomic relationships: Visceral situs: normal. Left sided cardiac apex (levocardia). Normal atrial situs (atrial situs solitus). Concordant atrioventricular alignment. Ventricular d-loop. Normal infundibular anatomy. Concordant ventriculoarterial connection. Normally related great vessels. Systemic veins: SVC: The superior vena cava and left innominate vein appeared of normal caliber, with normal flow. IVC: The inferior vena cava was normal in size and course. IVC Doppler: The flow pattern was normal. Pulmonary veins: At least two pulmonary veins demonstrated draining normally to the left atrium. Right atrium: Size was normal. Left atrium: Size was normal. Atrial septum: No defect or patent foramen ovale was identified. Tricuspid valve: The valve structure was normal. Doppler: The transtricuspid velocity was within the normal range. There was no evidence for tricuspid stenosis. There was no regurgitation. Mitral valve: Valve structure was normal. There is no mitral valve prolapse. Doppler: The transmitral velocity was within the normal range. There was no evidence for stenosis. There was no regurgitation. Right ventricle: The cavity size was normal. Wall thickness was normal. Systolic function was normal. RV outflow tract: There was no obstruction. Left ventricle: The cavity size was normal. Wall thickness was normal. Systolic function was normal. There were no regional wall motion abnormalities. Doppler: Left ventricular diastolic function parameters were normal. LV outflow tract: There was no outflow obstruction. Ventricular septum: Thickness was normal. The septum was intact. Pulmonic valve: Leaflets exhibited normal thickness and normal cuspal separation. Doppler: The transpulmonic velocity was within the normal range. Physiologic regurgitation was present. Aortic valve: The valve was trileaflet. Leaflets exhibited normal thickness and normal cuspal separation. Doppler: Transaortic velocity was within the normal range. There was no stenosis. There was no regurgitation. Pulmonary artery: The main pulmonary artery was normal, with normal-sized, confluent proximal branch pulmonary arteries. Aorta: There was a normal-sized aortic arch with normal brachiocephalic branching. The root was normal in size. The ascending aorta size was normal. There was no evidence of coarctation, either anatomically, or by Doppler flow parameters. Coronary arteries: The size and course of the left main, proximal left anterior descending, and proximal right coronary arteries were normal. Right coronary artery: Flow was normal. Left main coronary artery: Flow was normal. Left anterior descending: Flow was normal. Extracardiac shunting: No ductal shunt was detected by Doppler. Pericardium: There was no pericardial effusion. The pericardium was normal in appearance. Summary: - ??Diagnoses: No pathologic valve stenosis or regurgitation. Normal biventricular systolic function. No pericardial effusion. Fractional shortening 33%. Prepared and signed by Devora Valente MD Signed 10/29/2013 16:57:56 System measurement tables MM %FS: 33.3 % EDV(Teich): 139 ml EF(Teich): 61.5 % ESV(Teich): 53.5 ml IVSd: 7.9 mm IVSs: 11.4 mm LVIDd: 53.6 mm LVIDs: 35.7 mm LVPWd: 6 mm LVPWs: 9.9 mm LVd Mass: 146.2 g LVd Mass (ASE): 128.4 g LVd Mass Ind (ASE): 68.7 g/m2 LVd Mass Index: 78.2 g/m2 LVs Mass: 132.4 g LVs Mass (ASE): 117.4 g LVs Mass Ind (ASE): 62.8 g/m2 LVs Mass Index: 70.8 g/m2 SV(Teich): 85.5 ml Procedure Note Unknown, Provider - 10/29/2013 [facility] , Transthoracic Echocardiogram 2D, M-mode, Doppler, and Color Doppler Name: ANGELA PIMENTEL MR #: [id number] Study date: 10/29/2013 Age: 18 years : 1995 Gender: Male Ht: 73 in / 185.5 cm Wt: 143.4 lb / 65.2 kg BSA: 1.87 m?? HR: BP: / age: GODFREY: Maternal age: LOFT PATTERNMAKER: Devora Valente MD PEDIATRIC ECHO INSURANCE EXAMINER: Aneta Jones [facility]AG Allergies: NKA History/ Indications: acute lymphoid leukemia in remisson Procedure: The procedure was performed in the echo lab. Anatomic relationships: Visceral situs: normal. Left sided cardiac apex (levocardia). Normal atrial situs (atrial situs solitus). Concordant atrioventricular alignment. Ventricular d-loop. Normal infundibular anatomy. Concordant ventriculoarterial connection. Normally related great vessels. Systemic veins: SVC: The superior vena cava and left innominate vein appeared of normal caliber, with normal flow. IVC: The inferior vena cava was normal in size and course. IVC Doppler: The flow pattern was normal. Pulmonary veins: At least two pulmonary veins demonstrated draining normally to the left atrium. Right atrium: Size was normal. Left atrium: Size was normal. Atrial septum: No defect or patent foramen ovale was identified. Tricuspid valve: The valve structure was normal. Doppler: The transtricuspid velocity was within the normal range. There was no evidence for tricuspid stenosis. There was no regurgitation. Mitral valve: Valve structure was normal. There is no mitral valve prolapse. Doppler: The transmitral velocity was within the normal range. There was no evidence for stenosis. There was no regurgitation. Right ventricle: The cavity size was normal. Wall thickness was normal. Systolic function was normal. RV outflow tract: There was no obstruction. Left ventricle: The cavity size was normal. Wall thickness was normal. Systolic function was normal. There were no regional wall motion abnormalities. Doppler: Left ventricular diastolic function parameters were normal. LV outflow tract: There was no outflow obstruction. Ventricular septum: Thickness was normal. The septum was intact. Pulmonic valve: Leaflets exhibited normal thickness and normal cuspal separation. Doppler: The transpulmonic velocity was within the normal range. Physiologic regurgitation was present. Aortic valve: The valve was trileaflet. Leaflets exhibited normal thickness and normal cuspal separation. Doppler: Transaortic velocity was within the normal range. There was no stenosis. There was no regurgitation. Pulmonary artery: The main pulmonary artery was normal, with normal-sized, confluent proximal branch pulmonary arteries. Aorta: There was a normal-sized aortic arch with normal brachiocephalic branching. The root was normal in size. The ascending aorta size was normal. There was no evidence of coarctation, either anatomically, or by Doppler flow parameters. Coronary arteries: The size and course of the left main, proximal left anterior descending, and proximal right coronary arteries were normal. Right coronary artery: Flow was normal. Left main coronary artery: Flow was normal. Left anterior descending: Flow was normal. Extracardiac shunting: No ductal shunt was detected by Doppler. Pericardium: There was no pericardial effusion. The pericardium was normal in appearance. Summary: - Diagnoses: No pathologic valve stenosis or regurgitation. Normal biventricular systolic function. No pericardial effusion. Fractional shortening 33%. Prepared and signed by Devora Valente MD Signed 10/29/2013 16:57:56 System measurement tables MM %FS: 33.3 % EDV(Teich): 139 ml EF(Teich): 61.5 % ESV(Teich): 53.5 ml IVSd: 7.9 mm IVSs: 11.4 mm LVIDd: 53.6 mm LVIDs: 35.7 mm LVPWd: 6 mm LVPWs: 9.9 mm LVd Mass: 146.2 g LVd Mass (ASE): 128.4 g LVd Mass Ind (ASE): 68.7 g/m2 LVd Mass Index: 78.2 g/m2 LVs Mass: 132.4 g LVs Mass (ASE): 117.4 g LVs Mass Ind (ASE): 62.8 g/m2 LVs Mass Index: 70.8 g/m2 SV(Teich): 85.5 ml Toñito Romeo MD ECHO ORDERABLES Performing Organization Address City/State/[facility] Co de Phone Number [facility] [address] [place] [phone] documented in this encounter Visit Diagnoses Diagnosis 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
--- OUTSIDE RECORDS SUMMARY | 2024-04-15 02:50 | XMS_ITS | Encounter Summary ---
Author Organization [facility] Address [address] [place] [address] Care Team Providers Care Butt Trimmer Name Role Phone Prosper Charles MD Primary Care Provider [phone] Encounter Details Date Type Department Care Team (Latest Contact Info) Description 05/30/2011 2:36 PM AUTO [facility]TER - 05/30/2011 11:59 PM AUTO [facility] Hospital Encounter [facility] at [address] [address] Discharge Disposition: Home or Self Care Social [...] Sign Reading Time Taken Comments Blood Pressure 100/70 05/30/2011 2:00 PM AUTO [facility] Pulse 96 05/30/2011 2:00 PM AUTO [facility] Temperature 37.1 ??C (98.8 ??F) 05/30/2011 2:00 PM CS T Respiratory Rate 16 05/30/2011 2:00 PM AUTO [facility] Oxygen Saturation 99% 05/30/2011 2:00 PM AUTO [facility] Inhaled Oxygen Concentration - - Weight 56.7 kg (125 lb) 05/30/2011 2:00 PM AUTO [facility] Height 171.1 cm (5' 7.36 ) 05/30/2011 2:00 PM CS T Body Mass Index 19.37 05/30/2011 2:00 PM AUTO [facility] Body Mass Index Percentile 45.88% 05/30/2011 2:0 0 PM AUTO [facility]TER Growth Chart: [facility][NOTE 3] (Boys, 2-2 0 Years) documented in this encounter Progress Notes * Srinivas Oliver MD - 05/30/2011 6:56 PM CST Hematology/Oncology Progress Note 05/30/2011 Yaya Gonsalves PCP: Prosper Charles MD Diagnosis: T cell ALL Protocol/Regimen: per [id number] No Known Allergies No current outpatient prescriptions on file. Interval History Doing well since last visit--occasional ankle pain but currently feeling well, doing weight training to prepare for baseball this spring, no respiratory issues, SOB, exercise intolerance. Doing well in school ( A'). Past Medical History: unchanged Family Medical History: unchanged Social History: unchanged Review of Systems: 1) General: Fever: no Wt/appetite change: no Other:no 2) Heme: Bruising: no Other:no 3) Skin: Rash: no Other: no 4) ENT: Congestion:no Rhinorrhea: no Epistaxis: no Sore Throat: no Change in Hearing: N/A Earache: no Stomatitis: no 5) Resp/CV: Shortness of Breath: no Chest Pain: no Cough:no Palpitation: N/A Other: no 6) GI: Pain: no Jaundice: no Nausea: no Vomiting: no Diarrhea: no Constipation: no Other: no 7) : Frequency: N/A Dysuria: N/A Menorrhagia/Dysmenorrhea: N/A Hematuria: N/A Other: no 8) Musculo-skeletal: Pain: no Swelling/Edema: no Change in ROM: N/A Cyanosis: N/A Other: no 9) Neuro: Headache: no Weakness: no Neuralgia: N/A Vertigo: N/A Seizure: N/A Other: no 10) Psych:; Behavior: no Other: no 11) Allergy/Immun: no 12) Pain: no 13) Nutritional Status: good Physical Exam Constitutional: BP 100/70 Pulse 96 Temp 98.8 ??F Resp 16 Ht 1.711 m (5' 7.36 ) Wt 56.7 kg (125 lb) BMI 19.37 kg/m2 SpO2 99% BSA (Calculated): 1.64 General Appearance: W/D, W/N, no acute distress Head: No nasal congestion or discharge Skin: no rashes, bruises, or petechiae Ears: tympanic membranes normal Eyes: anicteric: pupils equal, round, reactive to light; intact extra-ocular movements; fundi normal Mouth/throat: no sores, erythema, exudates, or mucosal pallor. Tonsils not enlarged. Neck: supple without masses Lymph nodes: no palpable lymphadenopathy Chest: lungs clear to auscultation Heart: normal S1 and S2, no murmur Back: no spinous or CVA tenderness Abdomen: soft, non-tender, no masses or hepatosplenomegaly Extremities: no focal swelling or tenderness; full ROM Neuro: Cranial nerves: intact Strength: grossly normal Sensation: grossly intact Gait/cerebellar: normal DTR: 2+, symmetric Performance Score: Lansky: 100 - fully active, normal Lab and/or Imaging Studies Recent Results (from the past 24 hour(s)) CBC W AUTO DIFFERENTIAL Collection Time 05/30/11 2:50 PM Component Value Range WBC 5.53 4.5 - 14.5 (K/cumm) RBC 5.03 4.50 - 5.30 (mill/cumm) Hgb 14.7 13.0 - 16.0 (gm/dl) Hct 40.8 37.0 - 49.0 (%) MCV 81.1 78.0 - 98.0 (cu microns) MCH 29.2 25.0 - 35.0 (uug) MCHC 36.0 31.0 - 37.0 (%) RDW 12.[address] 257 100 - 400 (K/cumm) Gran 49.3 24 - 66 (%) Lymph 38.5 22 - 61 (%) Hartley 9.9 3 - 15 (%) Eos 1.6 0 - 10 (%) Baso 0.7 0 - 1 (%) Manual Diff Comment Automated Diff Performed Procedures None Assessment 15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) documented in this encounter Results * CBC W AUTO DIFFERENTIAL (05/30/2011 2:50 PM AUTO PORTER) WBC 5.53 4.5 - 14.5 K/cumm [facility] RBC 5.03 4.50 - 5.30 mill/cumm [facility] Hemoglobin 14.7 13.0 - 16.0 gm/dl [facility] Hematocrit 40.8 37.0 - 49.0 % [facility] MCV 81.1 78.0 - 98.0 cu microns [facility] MCH 29.2 25.0 - 35.0 uug [facility] MCHC 36.0 31.0 - 37.0 % [facility] RDW 12.9 % [facility] MPV 9.6 fl [facility] Platelet Count 257 100 - 400 K/cumm [facility] Granulocytes % 49.3 24 - 66 % [facility] Lymphocytes % 38.5 22 - 61 % [facility] Monocytes % 9.9 3 - 15 % [facility] Eosinophils % 1.6 0 - 10 % [facility] Basophils % 0.7 0 - 1 % [facility] Comment Manual Diff Automated Diff Performed [facility] Blood specimen (specimen) BLOOD SPECIMEN / Unknown 05/30/2011 2:50 PM AUTO P[facility]TER 05/30/2011 2:59 PM AUTO PORTER Srinivas Oliver MD LAB - HEMATOLOGY O RDERABLES [facility] [address] [place] [address] documented in this encounter Visit Diagnoses Diagnosis 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
--- OUTSIDE RECORDS SUMMARY | 2024-04-15 02:50 | XMS_ITS | Encounter Summary ---
Author Organization [facility] Address [address] [place] [address] Care Team Providers Care Drum Builder Name Role Phone Prosper Charles MD Primary Care Provider +1 [phone] Encounter Details Date Type Department Care Team (Latest Contact Info) Description 05/25/2010 1:30 PM QUARRY PLUG AND FEATHER DRILLER - 05/25/2010 1:51 PM [employer] AND FE[employer]ER DRILLER Hospital Encounter [facility] at [address] [address] Discharge Disposition: Home or Self Care Social [...] Reading Time Taken Comments Blood Pressure 100/70 05/25/2010 1:00 PM QU[employer]UG [employer] FEATHER DRILLER Pulse 80 05/25/2010 1:00 PM QU[employer]Y PLUG AND FEATHER DRILLER Temperature 36.6 ??C (97.8 ??F) 05/25/2010 1:00 PM CS T Respiratory Rate 28 05/25/2010 1:00 PM QU[employer]Y [employer]UG [employer] FE[employer]ER DRILLER Oxygen Saturation 98% 05/25/2010 1:00 PM QU[employer]Y [employer] AND FE[employer]ER DRILLER Inhaled Oxygen Concentration - - Weight 47.6 kg (104 lb 15 oz) 05/25/2010 1:00 PM QU[employer]Y PLUG AND FEATHER DRILLER Height 163.1 cm (5' 4.21 ) 05/25/2010 1:00 PM CS T Body Mass Index 17.89 05/25/2010 1:00 PM QU[employer]Y [employer] FE[employer]ER DRILLER Body Mass Index Percentile 32.73% 05/25/2010 1:0 0 PM QU[employer]Y [employer] FE[employer]ER DRILLER Growth Chart: CDC (Boys, 2-2 0 Years) documented in this encounter Progress Notes * Srinivas Oliver MD - 05/25/2010 3:22 PM CST Hematology/Oncology Progress Note 05/25/2010 Yaya Gonsalves PCP: Prosper Charles MD Diagnosis: T-cell ALL Protocol/Regimen: per [id number], finsihed 05/2005 No Known Allergies No current outpatient prescriptions on file prior to encounter. Home medications: none Interval History No significant problems over the last 6 months--no fevers, no headaches; occasional joint pain but he is very active athletically and these resolve spontaneously within 1-2 days. Cardiac echo today. Past Medical History: unchanged Family Medical History: [...] Other: no 6) GI: Pain: no Jaundice: N/A Nausea: no Vomiting: no Diarrhea: no Constipation: no Other: no 7) : Frequency: N/A Dysuria: N/A Menorrhagia/Dysmenorrhea: N/A Hematuria: N/A Other: no 8) Musculo-skeletal: Pain: see HPI Swelling/Edema: no Change in ROM: no Cyanosis: N/A Other: no 9) Neuro: Headache: no Weakness: no Neuralgia: no Vertigo: N/A Seizure: N/A Other: no 10) Psych: School Grade: will start HS in fall; Behavior: no Other: no 11) Allergy/Immun: no 12) Pain: no 13) Nutritional Status: good Physical Exam Constitutional: BP 100/70 Pulse 80 Temp 97.8 ??F Resp 28 Ht 1.631 m (5' 4.21 ) Wt 47.6 kg (104 lb 15 oz) SpO2 98% BSA (Calculated): 1.47 General Appearance: W/D, W/N, no acute distress Head: No nasal congestion or discharge Skin: no rashes, bruises, or petechiae Ears: tympanic membranes normal Eyes: anicteric: pupils equal, round, reactive to light; intact extra-ocular movements; fundi normal Mouth/throat: no sores, erythema, exudates, or mucosal pallor. Tonsils 1+ enlarged, symmetric, without exudate or erythema. Neck: supple without masses Lymph nodes: no [...] hour(s)) CBC W AUTO DIFFERENTIAL Collection Time 05/25/10 1:45 PM Component Value Range ??? WBC 5.10 4.5 - 14.5 (K/cumm) ??? RBC 5.10 4.50 - 5.30 (mill/cumm) ??? Hgb 14.5 13.0 - 16.0 (gm/dl) ??? Hct 41.5 37.0 - 49.0 (%) ??? MCV 81.4 78.0 - 98.0 (cu microns) ??? MCH 28.4 25.0 - 35.0 (uug) ??? MCHC 34.9 31.0 - 37.0 (%) ??? RDW 12.8 (%) ??? MPV 10.3 (fl) ??? Plt Ct K/CUMM 189 100 - 400 (K/cumm) ??? Manual Diff Comment Done DIFFERENTIAL MANUAL ??? Manual Diff Comment Done ??? Seg Manual 51 24 - 66 (%) ??? Lymph Manual 33 22 - 61 (%) ??? [place] Manual 8 3 - 15 (%) ??? Eos Manual 4 0 - 10 (%) ??? Atyp Lymph Manual 4 (%) ??? RBC Morph Normal Cardiac echo: results pending Procedures None. Assessment 14 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 Here for scheduled visit and echo. Sent to [facility] for echo then lab for CBC. RTC and examined per Dr Oliver. Discharge instructions given toRT in 6 months. D/c'd home ambulatory with parents. RY [employer] FEATHER DRILLER documented in this encounter Procedure Notes * Document, Scanned - 11/16/2010 3:43 PM CDTAssociated Order(s): CARDIAC ECHOCARDIOGRAM COMPLETE ORDER * Document, Scanned - 05/28/2010 8:20 PM CSTAssociated Order(s): CARDIAC ECHOCARDIOGRAM COMPLETE ORDER documented in this encounter Miscellaneous Notes * Miscellaneous Scans - Document, Scanned - 07/06/2010 1:09 PM CDT * Miscellaneous Scans - Document, Scanned - 07/06/2010 10:49 AM CDT documented in this encounter Plan of Treatment Pending Results Name Type Priority Associated Diagnoses Date /Time ECHO CONSULT - PEDIATRIC ECHO Routine 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) 05/29/2010 4:37 PM [employer] DRILLER documented as of this encounter Procedures Procedure Name Priority Date/Time Associated Diagnosis Comments CARDIAC ECHOCARDIOGRAM COMPLETE ORDER 11/16/2010 3:43 PM CDT DIFFERENTIAL MANUAL Timed 05/25/2010 1 :45 PM [employer] FE[employer] DRILLER CBC W AUTO DIFFERENTIAL Timed 05/25/19 11 1:45 PM QU[employer] FE[employer] DRILLER 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) documented in this encounter Results * CARDIAC ECHOCARDIOGRAM COMPLETE ORDER (11/16/2010 3:43 PM CDT) Narrative Procedure Note Document, Scanned - 11/16/2010 3:43 PM CDT Transcriptions Document, Scanned - 05/28/2010 8:20 PM QU[employer]Y PLUG AND FEATHER DRILLER Scanned Document ECHO ORDERABLES * DIFFERENTIAL MANUAL (05/25/2010 1:45 PM QUARRY PLUG AND FEATHER DRILLER) Comment Manual Diff Done [facility] Neutrophils % Manual 51 24 - 66 % [facility] Lymphocytes % Manual 33 22 - 61 % [facility] Monocytes % Manual 8 3 - 15 % [facility] Eosinophils % Manual 4 0 - 10 % [facility] Atypical Lymphocyte % Manual 4 % [facility] RBC Morphology Normal [facility] BLOOD SPECIMEN / Unknown 05/25/2010 1:45 PM [employer] FE[employer] DRILLER 05/25/2010 2:21 PM [facility] FE[employer]ER DRILLER Srinivas Oliver MD LAB - HEMATOLOGY O RDERATITI Performing Organization Address [facility] Co de Phone Number [facility] [address] [place] [address] * CBC W AUTO DIFFERENTIAL (05/25/2010 1:45 PM QU[employer]Y PLUG AND FEATHER DRILLER) WBC 5.10 4.5 - 14.5 K/cumm [facility] RBC 5.10 4.50 - 5.30 mill/cumm [facility] Hemoglobin 14.5 13.0 - 16.0 gm/dl [facility] Hematocrit 41.5 37.0 - 49.0 % [facility] MCV 81.4 78.0 - 98.0 cu microns [facility] MCH 28.4 25.0 - 35.0 uug [facility] MCHC 34.9 31.0 - 37.0 % [facility] RDW 12.8 % [facility] MPV 10.3 fl [facility] Platelet Count 189 100 - 400 K/cumm [facility] Comment Manual Diff Done [facility] BLOOD SPECIMEN / Unknown 05/25/2010 1:45 PM [employer] FE[employer]ER DRILLER 05/25/2010 1:50 PM QU[employer] FE[employer]ER DRILLER Srinivas Oliver MD LAB - HEMATOLOGY O RDERATITI Performing Organization Address City/[facility] Co de Phone Number [facility] [address] [facility] 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
--- OUTSIDE RECORDS SUMMARY | 2024-04-15 02:50 | XMS_ITS | Encounter Summary ---
Author Organization [facility] Address [address] [facility] [place] [address] Care Team Providers Care Audio Visual Aids Director Name Role Phone Prosper Charles MD Primary Care Provider [phone]- [phone] Toñito Romeo MD Unavailable Reason for Visit * (Routine) - Closed Specialty Diagnoses / Procedures Referred By Alberta t Referred To Contact Ultrasound Jane Stevenson, FACILITY ATTENDANT-NIGHT SHIFT SUPERVISOR [address] [place] [address] [address] Referral ID Status Reason Start Date Expiration Date Visits Re quested Visits Authorized [id number] Closed 09/28/2012 03/27/2013 1 1 Encounter Details Date Type Department Care Team (Latest Contact Info) Description 09/28/2012 10:53 AM CDT - 09/28/2012 10:56 AM CDT Hospital Encounter [facility] - Ultrasound [address] [place] [phone] Jane Stevenson, FACILITY ATTENDANT-NIGHT SHIFT SUPERVISOR [address] [place] [phone] Discharge Disposition: Home or Self Care Social [...] Procedure Name Priority Date/Time Associated Diagnosis Comments US SCROTUM W DOPPLER Routine 09/28/2012 11:37 AM CDT 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 Normal scrotal Doppler. Dictated by: Brent Greenfield MD Narrative 09/28/2012 1:21 PM CDT EXAM: Scrotal sonogram COMPARISON: No priors are available for comparison. FINDINGS: Right testis: 4.6 x 1.7 x 2.8 cm Left testis: 4.6 x 1.6 x 2.7 cm The testes are equal in size and homogeneous in echotexture. Small bilateral epididymal cysts are present. Doppler interrogation documents arterial flow in both testes. Procedure Note Delfin Houston MD - 09/28/2012 EXAM: Scrotal sonogram COMPARISON: No priors are available for comparison. FINDINGS: Right testis: 4.6 x 1.7 x 2.8 cm Left testis: 4.6 x 1.6 x 2.7 cm The testes are equal in size and homogeneous in echotexture. Small bilateral epididymal cysts are present. Doppler interrogation documents arterial flow in both testes. IMPRESSION Normal scrotal sonogram. Normal scrotal Doppler. 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
--- OUTSIDE RECORDS SUMMARY | 2024-04-15 02:50 | XMS_ITS | Encounter Summary ---
Author Organization [facility] Address [address] [place] [address] Care Team Providers Care Hide Sorter Name Role Phone Prosper Charles MD Primary Care Provider +1- [phone] Toñito Romeo MD Unavailable Encounter Details Date Type Department Care Team (Latest Contact Info) Description 10/21/2014 12:45 PM CDT - 10/21/2014 11:59 PM CDT Hospital Encounter [facility] at [address] [phone] Toñito Romeo MD [address] [place] [phone] Discharge Disposition: Home or Self Care Social [...] Sign Reading Time Taken Comments Blood Pressure 145/80 10/21/2014 12:00 PM CDT Pulse 72 10/21/2014 12:00 PM CDT Temperature 37 ??C (98.6 ??F) 10/21/2014 12: 00 PM CDT Respiratory Rate 16 10/21/2014 12:0 0 PM CDT Oxygen Saturation - - Inhaled Oxygen Concentration - - Weight 65.6 kg (144 lb 10 oz) 5 12:00 PM CDT Height 182.5 cm (5' 11.85 ) 10/21/2014 12:00 PM CDT Body Mass Index 19.7 10/21/2014 12:00 PM CDT Body Mass Index Percentile 18.26% 10/21 12:00 PM CDT Growth Chart: [facility] (Boys, 2-2 0 Years) documented in this encounter Progress Notes * Angelique Hugo RN - 10/21/2014 5:20 PM CDT Arrives in clinic today for scheduled LTFU visit. Triaged and meds reviewed. To exam room and seen by LTFU team. CBC obtained per venipuncture to L ac space. Discharged to self with parents to RTC in1 year. To exit ambulatory, in NAD. 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 Interval History: Yaya is doing well and is without significant concerns or complaints today. He is rarely ill. He exercises regularly and has no exercise intolerance. He graduated from high schoollast spring and will start college this fall. Past Medical History Diagnosis Date ??? Acute lymphoid leukemia in remission Past Surgical History Procedure Laterality Date ??? Port-a-cath 07-15-03 placed ??? Port-a-cath [...] Use: No ??? Drug Use: No ??? Sexual Activity: Not on file Other Topics Concern ??? Caffeine Concern No 1 a day ??? Sleep Concern No no issues ??? Stress Concern No ??? Weight Concern No ??? Special Diet No ??? Exercise Yes basketball, hard labor at work ??? Bike Helmet Yes ??? Seat Belt Yes no texting ??? Self-Exams Yes testicular Social History Narrative Lives at home with mom, dad, and sister Going to [employer] in the fall to study 23press science Working this summer at the [employer] Needs to see dentist-discussed importance and encouraged visit soon No recent illnesses or injuries No Known Allergies No current outpatient prescriptions on file. No current facility-administered medications for this encounter. ROS: 10 systems tested and all negative Physical Exam: Constitutional: BP 145/80 mmHg Pulse 72 Temp(Src) 98.6 ??F Resp 16 Ht 1.825 m (5' 11.85 ) Wt 65.6 kg (144lb 10 oz) BMI 19.70 kg/m2, Body mass index is 19.7 kg/(m^2). BSA (Calculated): 1.82 Repeat BP 132/76 General Appearance: alert, no distress and smiling Eyes, Nose, Mouth/Throat: Eyes,Normal Ears: Otoscopic exam: Normal Nose and sinus: Normal Mouth and throat: Normal Neck: Normal Lymphatic: No abnormally enlarged lymph nodes. Respiratory: respiratory effort normal, clear to auscultation, normal breath sounds bilaterally Cardiovascular: normal rate, regular rhythm, normal S1, S2, no murmur Gastrointestinal: abdomen soft, non-tender and no hepatosplenomegaly Musculoskeletal: Normal muscle tone. All joints with full range of motion. No deformity or tenderness. Neurologic: Cranial nerves: intact Strength: normal Sensation: intact Gait/cerebellar: normal Performance Score: Karnofsky: 100-Normal, no complaints, no evidence of disease Results: Recent Results (from the past 48 hour(s)) CBC W AUTO DIFFERENTIAL Collection Time 10/21/14 1:49 PM Result Value Ref Range WBC 5.2 4.5-11.0 x10^9/L WBC Corrected RBC 5.40 (*) 4.50-5.30 x10^12/L Hgb 15.4 13.0-16.0 gm/dL HCT 44.8 37.0-49.0 % MCV 83.0 78.0-98.0 fl MCH 28.5 25.0-35.0 pg MCHC 34.4 31.0-37.0 gm/dL Plt Ct 241 100-400 x10^9/L RDW-CV 12.9 11.5-14.0 % MPV 9.8 (*) 6.0-9.5 fl Neutro 58.3 31.0-78.0 % Lymph 31.3 13.0-54.0 % [place] 9.2 4.0-13.0 % Eos 0.6 0.0-8.0 % Baso 0.2 Immature Grans 0.4 Neutro Abs 3.03 Lymph Abs 1.63 [place] Abs 0.48 Eosin Abs 0.03 Baso Abs 0.01 Immature Grans (Abs) 0.02 Impression: Yaya continues to do well without signs of recurrent disease or secondary malignancy. His blood pressure was mildly elevated today. I recommended that he have it repeated locally. 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) documented in this encounter Results * (ABNORMAL) CBC W AUTO DIFFERENTIAL (10/21/2014 1:49 PM CDT) [facility] WBC 5.2 4.5 - 11.0 x10^9/L 10/21/2014 2:28 PM CDT [facility] WBC Corrected x10^9/L 10/21/2014 2:28 PM CDT [facility] RBC 5.40(H) 4.50 - 5.30 x10^12/L 10/21/2014 2:28 PM CDT [facility] Hemoglobin 15.4 13.0 - 16.0 gm/dL 10/21/2014 2:28 PM CDT [facility] Hematocrit 44.8 37.0 - 49.0 % 10/21/2014 2:28 PM CDT [facility] MCV 83.0 78.0 - 98.0 fl 10/21/2014 2:28 PM [facility] MCH 28.5 25.0 - 35.0 pg 10/21/2014 2:28 PM [facility] MCHC 34.4 31.0 - 37.0 gm/dL 10/21/2014 2:28 PM [facility] Platelet Count 241 100 - 400 x10^9/L 10/21/2014 2:28 PM [facility] RDW-CV 12.9 11.5 - 14.0 % 10/21/2014 2:28 PM [facility] MPV 9.8(H) 6.0 - 9.5 fl 10/21/2014 2:28 PM [facility] Neutrophils % 58.3 31.0 - 78.0 % 10/21/2014 2:28 PM [facility] Lymphocytes % 31.3 13.0 - 54.0 % 10/21/2014 2:28 PM [facility] Monocytes % 9.2 4.0 - 13.0 % 10/21/2014 2:28 PM [facility] Eosinophils % 0.6 0.0 - 8.0 % 10/21/2014 2:28 PM [facility] Basophils % 0.2 % 10/21/2014 2:28 PM [facility] Immature Granulocytes 0.4 % 10/21/2014 2:28 PM [facility] Neutrophil Absolute 3.03 x10^9/L 10/21/2014 2:28 PM [facility] Lymphocytes Absolute 1.63 x10^9/L 10/21/2014 2:28 PM [facility] Monocytes Absolute 0.48 x10^9/L 10/21/2014 2:28 PM [facility] Eosinophils Absolute 0.03 x10^9/L 10/21/2014 2:28 PM [facility] Basophils Absolute 0.01 x10^9/L 10/21/2014 2:28 PM [facility] Immature Granulocytes Absolute 0.02 x10^9/L 10/21/2014 2:28 PM [facility] Blood BLOOD SPECIMEN / Unknown 10/21/2014 1:49 PM CDT 10/21/2014 1:59 PM CDT Toñito Romeo MD LAB - HEMATOLOGY ORD [facility] Organization Address City/State/ZIP Co de Phone Number [facility] [address] [place] [phone] documented in this encounter Visit Diagnoses Diagnosis 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
--- OUTSIDE RECORDS SUMMARY | 2024-04-15 02:50 | XMS_ITS | Encounter Summary ---
Author Organization [facility] Address [address] [place] [address] Care Team Providers Care Customer Sales Service Manager Name Role Phone Prosper Charles MD Primary Care Provider [phone]- [phone] Toñito Romeo MD Unavailable Reason for Visit * (Routine) - Closed Specialty Diagnoses / Procedures Referred By Contac t Referred To Contact Cardiology Diagnoses 204.01 Procedures [id number] [facility] [address] [place] [phone] Card Serv [address] [place] [address] Referral ID Status Reason Start Date Expiration Date Visits Re quested Visits Authorized [id number] Closed 11/01/2011 04/29/2012 1 1 Encounter Details Date Type Department Care Team (Latest Contact Info) Description 11/01/2011 1:50 PM CDT - 11/01/2011 11:59 PM CDT Hospital Encounter [facility] at [address] [address] Toñito Romeo MD [address] [place] [address] Lianne Fry MD [address] [place] [phone] Discharge Disposition: Home or Self Care Social [...] as of this encounter Miscellaneous Notes * Miscellaneous Scans - Document, Scanned - 11/11/2011 8:58 AM CDT * Miscellaneous Scans - Document, Scanned - 11/08/2011 11:16 AM CDT documented in this encounter Plan of Treatment Not on file documented as of this encounter Visit Diagnoses Not on filedocumented in this encounter Care Teams Customer Sales Service Manager Relationship Specialty Start Date End Date Prosper Charles MD PCP - General Family Medicine 10/04/11 Toñito Romeo MD [address] [place] [address] Psychology Technician Pediatrics 10/04/11 documented as of this encounter
--- OUTSIDE RECORDS SUMMARY | 2024-04-15 02:50 | XMS_ITS | Encounter Summary ---
Author Organization [facility] Address [address] [place] [address] Care Team Providers Care Water Treatment Plant Supervisor Name Role Phone Unknown, Notinfile Primary Care Provider Unavail able Reason for Visit * Reason Comments Sore Throat Pt c/o sore throat, cough for 1 day Encounter Details Date Type Department Care Team (Latest Contact Info) Description 03/30/2022 10:15 AM QUANTITATIVE DEVELOPER Office Visit [facility] [address] [phone] Monica Walker NP [address] [place] [address] [address] [place], [place] [id number] Acute nasopharyngitis (Primary Dx) Social History Tobacco Use Types Packs/Day Years Used Date Smoking Tobacco: Never Tobacco Cessation:Counseling Given: Not Answered Sex and Gender Information Value Date Recorded Sex Assigned at Not on file Legal Sex Male 11:51 PM QUANTITATIVE DEVELOPER Gender Identity Not on file Sexual Orientation Not on file documented as of this encounter Last Filed Vital Signs Vital Sign Reading Time Taken Comments Blood Pressure 128/80 03/30/2022 9:32 AM QUANTITATIVE DEVELOPER Pulse 99 03/30/2022 9:32 AM QUANTITATIVE DEVELOPER Temperature 36.9 ??C (98.5 ??F) 03/30/2022 9:32 AM CS T Respiratory Rate 16 03/30/2022 9:32 AM QUANTITATIVE DEVELOPER Oxygen Saturation 98% 03/30/2022 9:32 AM QUANTITATIVE DEVELOPER Inhaled Oxygen Concentration - - Weight 84.4 kg (186 lb) 03/30/2022 9:32 AM QUANTITATIVE DEVELOPER Height 188 cm (6' 2 ) 03/30/2022 9:32 AM QUANTITATIVE DEVELOPER Body Mass Index 23.88 03/30/2022 9:32 AM QUANTITATIVE DEVELOPER documented in this encounter Patient Instructions * Patient Instructions* Monica Walker NP - 03/30/2022 10:15 AM QUANTITATIVE DEVELOPER Results for orders placed or performed in visit on 03/30/22 POC Influenza A/B, COVID-19 antigen Result Value Ref Range Inflenza A Ag, POC Negative Negative Influenza B Ag, POC Negative Negative COVID-19 Ag POC Presumptive Negative Presumptive Negative, Invalid POCT rapid strep A Result Value Ref Range Rapid Strep A, POC Negative TITATIVE DEVELOPER TITATIVE DEVELOPER * Attachments The following attachments cannot be sent through Care Everywhere. * Upper Respiratory Infection (Motor Equipment Captain) (Georgian) documented in this encounter Progress Notes * Monica Walker NP - 03/30/2022 10:15 AM CST Images from the original note were not included. Subjective/Objective Patient ID: Yaya Gonsalves is a 26 y.o. male. Chief Complaint Sore Throat (Pt c/o sore throat, cough for 1 day) Pt presents to [facility] URI This is a new problem. The current episode started yesterday. The problem has been unchanged. Therehas been no fever. Associated symptoms include coughing and a sore throat (5/10). Pertinent negatives include no abdominal pain, chest pain, congestion, diarrhea, ear pain, headaches, nausea, neck pain, rash, rhinorrhea, shortness of breath, sinus pain, sneezing, vomiting or wheezing. Treatments tri ed: dayquil. The treatment provided moderate relief. Review of Systems Constitutional: Negative for appetite change, chills, diaphoresis, fatigue and fever. HENT: Positive for sore throat (5/10). Negative for congestion, ear discharge, ear pain, postnasal drip, rhinorrhea, sinus pressure, sinus pain and sneezing. Respiratory: Positive for cough. Negative for chest tightness, shortness of breath and wheezing. Cardiovascular: Negative for chest pain. Gastrointestinal: Negative for abdominal pain, diarrhea, nausea and vomiting. Musculoskeletal: Negative for myalgias, neck pain and neck stiffness. Skin: Negative for rash. Neurological: Negative for dizziness and headaches. Hematological: Negative for adenopathy. Physical Exam Vitals and nursing note reviewed. Constitutional: General: He is awake. He is not in acute distress. Appearance: Normal appearance. HENT: Head: Normocephalic and atraumatic. Right Ear: Tympanic membrane and ear canal normal. Left Ear: Tympanic membrane and ear canal normal. Nose: No congestion or rhinorrhea. Right Sinus: No maxillary sinus tenderness or frontal sinus tenderness. Left Sinus: No maxillary sinus tenderness or frontal sinus tenderness. Mouth/Throat: Lips: [place]. Mouth: Mucous membranes are moist. Tongue: Tongue does not deviate from midline. Pharynx: Uvula midline. Posterior oropharyngeal erythema present. No pharyngeal swelling, oropharyngeal exudate or uvula swelling. Tonsils: No tonsillar exudate or tonsillar abscesses. Eyes: General: Lids are normal. Pupils: Pupils are equal, round, and reactive to light. Cardiovascular: Rate and Rhythm: Normal rate and regular rhythm. Pulses: Normal pulses. Heart sounds: Normal heart sounds. Pulmonary: Effort: Pulmonary effort is normal. No respiratory distress. Breath sounds: Normal breath sounds. No decreased breath sounds, wheezing, rhonchi or rales. Comments: No cough noted Musculoskeletal: Cervical back: Full passive range of motion without pain, normal range of motion and neck supple. Lymphadenopathy: Cervical: No cervical adenopathy. Skin: General: Skin is warm and dry. Neurological: Mental Status: He is alert and oriented to person, place, and time. Gait: Gait normal. Psychiatric: Behavior: Behavior is cooperative. Vitals: 03/30/22 0932 BP: 128/80 Pulse: 99 Resp: 16 Temp: 36.9 ??C (98.5 ??F) SpO2: 98% Weight: 84.4 kg (186 lb) Height: 188 cm (6' 2 ) No results found. No past medical history on file. No current outpatient medications on file. No Known Allergies Social History Tobacco Use Smoking status: Never Smokeless tobacco: None Substance and Sexual Activity Drug use: None Sexual activity: None Alcohol Use: Not on file No past surgical history on file. Assessment/Plan Diagnoses and all orders for this visit: Acute nasopharyngitis (Primary) - POC Influenza A/B, COVID-19 antigen - POCT rapid strep A - Influenza A/B, RSV, and COVID-19 PCR Nasopharyngeal; Future - Throat culture Throat; Future Recent Results (from the past 4 hour(s)) POC Influenza A/B, COVID-19 antigen Collection Time: 03/30/22 9:50 AM Result Value Ref Range Inflenza A Ag, POC Negative Negative Influenza B Ag, POC Negative Negative COVID-19 Ag POC Presumptive Negative Presumptive Negative, Invalid POCT rapid strep A Collection Time: 03/30/22 10:01 AM Result Value Ref Range Rapid Strep A, POC Negative Patient Education: -You may try: Nasal saline wash, either Neti Pot or Sinus Rinse DAILY or a saline nasal spray 3-4 times a day. Guaifenesin expectorants (Maximum Strength Mucinex, Robitussin, store brand) to loosen secretions. For cough you can use dextromethorphan (Delsym syrup, Robitussin cough capsules or store brand). Dextromethorphan is considered safe for and breast feeding women. You may try decongestants such as Sudafed (purchase at pharmacy) or Sudafed PE for congestion relief. Decongestants can keep you awake at night. Do not use decongestants if you have high blood pressure or if you are . If you have high blood pressure you can take otc Coricidin per package directions -Increase fluid intake: drink 2 liters (2 quarts) of non-caffeinated, non- alcoholic beverages daily, drinking alcohol causes nasal and sinus membranes to swell -Steam inhalation and warm compress to face often help relieve pressure -Avoid allergens and excessively dry heat -Sleep with head of bed elevated to encourage drainage. -Use of a humidifier if environment is heated by dry forced - air system -Avoid smoking, second-hand smoke and air pollutants. -If you are not improving or worsening, or develop facial swelling, in the next 10-12 days you mustRETURN to the clinic, go to your PCP, or Urgent Care/ER to be SEEN and reevaluated. No further prescriptions or refills will be given by phone without another evaluation. Disposition Treatment plan including expectations, follow up, and return precautions discussed with patient/parent, verbalizes understanding. Medication dosage, use, and potential adverse reactions discussed with patient/parent. Advised to follow up with PCP if symptoms do not resolve as expected or sooner if condition worsens. Signs/symptoms warranting ER evaluation reviewed. Patient and/or guardian was given an opportunity to ask questions, questions answered. Monica Walker NP TITATIVE DEVELOPER documented in this encounter Plan of Treatment Not on file documented as of this encounter Procedures Procedure Name Priority Date/Time Associated Diagnosis Comments POCT RAPID STREP Routine 03/30/2022 10:0 1 AM QUANTITATIVE DEVELOPER Acute nasopharyngitis POC INFLUENZA A/B, COVID-19 ANTIGEN Routine 03/30/2022 9:50 AM QUANTITATIVE DEVELOPER Acute nasopharyngitis documented in this encounter Results * Throat culture Throat (03/30/2022 10:02 AM QUANTITATIVE DEVELOPER) Report Final Report: No growth of pathogens. [facility] Comment:Testing performed by : [facility], [address] [place]., [address] Throat 03/30/2022 10:0 2 AM QUANTITATIVE DEVELOPER 03/30/2022 5:08 PM QUANTITATIVE DEVELOPER Narrative [facility] - 03/31/2022 12:30 PM QUANTITATIVE DEVELOPER Testing performed by [facility] ([phone]). Monica Walker NP LAB [facility] Final Result [facility] [address] Department [place] [address] * Influenza A/B, RSV, and COVID-19 PCR Nasopharyngeal (03/30/2022 10:02 AM QUANTITATIVE DEVELOPER) COVID-19 RNA Negative Negative [facility] Influenza A RNA Negative Negative [facility] Influenza B RNA Negative Negative [facility] RSV RNA Negative Negative [facility] Comment: Interpretive data: This test is performed using the [employer] Xpert Xpress CoV-2/Flu/RSV plus assay. This is a multiplex, real-time reverse transcriptase PCR assay intended for the qualitative detection of nucleic acid from SARS-CoV-2, influenza A, influenza B, and respiratory syncytial virus. This assay has been reviewed by the FDA for Emergency Use Authorization (EUA). The performance characteristics have been verified by the performing laboratory. Results must be considered in the clinical context, and a negative result does not rule out infection. Interpretive Data last revised 2021. Nasopharyngeal 03/30/2022 10 :02 AM QUANTITATIVE DEVELOPER 03/30/2022 1:58 PM QUANTITATIVE DEVELOPER Narrative [facility] - 03/30/2022 2:44 PM QUANTITATIVE DEVELOPER Is the Patient experiencing symptoms consistent with COVID?->Yes Date of Symptom Onset->03/29/22 Reason for testing?->Symptomatic Monica Walker NP LAB MICROBIOLOGY - GENERAL ORDE RABLES Final Result [facility] [address] Department [place] [address] * POCT rapid strep A (03/30/2022 10:01 AM QUANTITATIVE DEVELOPER) Rapid Strep A, POC Negative Swab 03/30/2022 10:0 1 AM QUANTITATIVE DEVELOPER Monica Walker NP POINT OF CARE TEST ORDERABLES F inal Result * POC Influenza A/B, COVID-19 antigen (03/30/2022 9:50 AM QUANTITATIVE DEVELOPER) Influenza A Ag, POC Negative Negative [facility] Influenza B Ag, POC Negative Negative [facility] COVID-19 Ag POC Presumptive Negative Presumptive Negative, Invalid [facility] Nasal 03/30/2022 9:50 AM QUANTITATIVE DEVELOPER Monica Walker NP POINT OF CARE TEST ORDERABLES F inal Result [facility] [address] [place] [address] documented in this encounter Visit Diagnoses Diagnosis Acute nasopharyngitis- Primary Acute nasopharyngitis (common cold) Acute nasopharyngitis Acute nasopharyngitis (common cold) documented in this encounter Additional Health Concerns Infection Onset Date Last Indicated Resolved Time COVID: Suspected 03/30/2022 03/30/2022 03/30/2022 2:45 PM QUANTITATIVE DEVELOPER documented as of this encounter Care Teams Water Treatment Plant Supervisor Relationship Specialty Start Date End Date Unknown, Notinfile PCP - General 08/26/18 documented as of this encounter
--- OUTSIDE RECORDS SUMMARY | 2024-04-15 02:50 | XMS_ITS | Encounter Summary ---
Author Organization [facility] Address [address] [facility] [place] [address] Care Team Providers Care Family Day Carer Name Role Phone Prosper Charles MD Primary Care Provider [phone] Prosper Charles MD Primary Care Provider [phone] Toñito Romeo MD Unavailable Encounter Details Date Type Department Care Team (Late st Contact Info) Description 06/09/2003 Orders Only [facility] - Laboratory [address] [place] [address] [id number] ProviderOleg MD Social History Tobacco Use Types Packs/Day Years Used Date Smoking Tobacco: Never Assessed Sex and Gender Information Value Date Recorded Sex Assigned at Not on file Gender Identity Not on file Sexual Orientation Not on file documented as of this encounter Plan of Treatment Not on file documented as of this encounter Procedures Procedure Name Priority Date/Time Associated Diagnosis Comments BONE MARROW BIOPSY [facility] 06/10/2005 9: 15 AM VISUAL C DEVELOPER BONE MARROW BIOPSY [facility] 07/15/2003 1: 06 PM VISUAL C DEVELOPER BONE MARROW BIOPSY [facility] 06/09/2003 12 :00 AM VISUAL C DEVELOPER documented in this encounter Results * BONE MARROW BIOPSY (06/10/2005 9:15 AM VISUAL C DEVELOPER) Result CASE NUMBER [id number] [facility] PATH REPORT Comment: ORDERING PHYSICIAN ??MAYA,EVIE S SPECIMEN TYPE ?Bone Tiffanie Aspirate CLINICAL HISTORY ? 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 PERIPHERAL BLOOD ?Peripheral Blood ? Quantitative Differential ? WBC Differential WBC ?3.47 ??x10E3/ul ? % Blasts RBC ?4.13 ??x10E6/ul ? % Progranulocytes / Myelocytes Hgb ?13.1 ??mg/dl ?% Metamyelocytes Hct% ? 36.5 ??% ? 4 ??% Band Granulocytes MCV ?88.4 ??fl ? 71 ??% Segmented Granulocytes MCH ?31.7 ??pg ?6 ??% Eosinophils MCHC ? 35.9 ??% ?% Basophils Retic Count ?% ? 4 ??% Lymphocytes Plat Count ?206 ??X10E3/ul ? 14 ??% Monocytes ? 1 ??% Variant Lymphs ?% Other ? 100 ??% TOTAL COMMENTS ?Moderate aniso, some poik, ovalocytes, macro, micro, and ?few schistocytes ? BONE MARROW SMEARS Granulocyte Series ? Erythrocyte Series ?% Myeloblasts ? 3.0 ??% Pronormoblasts ?% Progranulocytes ? 2.0 ??% Basophilic Normoblasts ??8.0 % Myelocytes ? 24.0 ??% Poly Normoblasts ??4.5 % Metamyelocytes ? 20.5 ??% Ortho Normoblasts 21.0 % Band Granulocytes ?49.5 ??% TOTAL ??8.0 % Segmented Granulocytes ?5.0 % Eosinophils / Precursors ?0.5 % Basophils / Precursors ? Other Series 47.0 % TOTAL ? 0.5 ??% Lymphoblasts ?0.5 ??% Prolymphocytes ?1.0 ??% Lymphocytes ? % Monoblasts ?0.5 ??% Promonocytes ?1.0 ??% Monocytes ? % Plasma Cells / Precursors ? % Other ?3.5 ??% TOTAL Megakaryocytes ?Adequate Histiocytes and Macrophages ?? Present Cellularity ?30-60% (estimated) M E Ratio ?1 1 Clot Sections ?? Confirmatory (1 -stained peripheral smear, 2 -stained bone marrow aspirates, 1 H/E-stained clot section) The bone marrow aspirate shows trilineage hematopoiesis including adequate numbers of megakaryocytes. ??The erythroid lineage is complete with moderate nuclear-cytoplasmic asynchrony and occasional nuclear budding. ??The granulocytic lineage is complete. ??Histiocytes with ingested cellular debris are also seen. ??The clot section shows numerous marrow particles with cellular features as seen on the aspirate slides. Cellularity, based on the aspirate slides and the clot section, varies from 30 to 60%. ??(LSE/lw) DIAGNOSIS ? DIAGNOSIS ?? BONE MARROW, ASPIRATION ?- ACUTE LYMPHOBLASTIC LEUKEMIA, IN REMISSION. ?- CHEMOTHERAPY EFFECT, MODERATE. ?- HYPOCELLULAR MARROW FOR AGE (SEE ?MICROSCOPIC DESCRIPTION). This case has been personally reviewed and interpreted by the attending (teaching) pathologist. Panel Laminator ? Leann Levy PATHOLOGIST ?Lazara Lopez M.D. ELECTRONICALLY SARKIS LAZARA LOPEZ MISCELLANEOUS SAMPLES / Unknown 06/10/2005 9:15 AM VISUAL C DEVELOPER 06/10/2005 9:54 AM VISUAL C DEVELOPER Historical Provider MD LAB - PATHOLOGY/C YTOLOGY ORDERABLES [facility] PATH REPORT * BONE MARROW BIOPSY (07/15/2003 1:06 PM VISUAL C DEVELOPER) Result CASE NUMBER [id number] [facility] PATH REPORT Comment: ORDERING PHYSICIAN ??JOSE ELIAS GONZALEZ SPECIMEN TYPE ?Bone Tiffanie Aspirate CLINICAL HISTORY ? The patient is a 7-year-old boy with ALL, 28 days post diagnosis. PERIPHERAL BLOOD ? PERIPHERAL BLOOD ?Quantitative Data ?WBC Differential WBC ? 3.10 ??x103/ul ? % Blasts RBC ? 4.14 ??x106/ul ? % Progranulocytes / Myelocytes Hgb ?11.5 ?? mg/dl ? % Metamyelocytes Hct ?34.9 ?? % ? 1 % Band Granulocytes ?? MCV ?84.3 ?? fl ? 52 % Segmented Granulocytes MCH ?27.8 ?? pg ?% Eosinophils MCHC ? 33.0 ?? % ? % Basophils Retic Count ? % ?34 % Lymphocytes Plat Count ??391 ?? x103/ul ?13 % Monocytes ?% Variant Lymphs ?% Other ?100 % TOTAL COMMENTS BONE MARROW SMEARS ? Granulocyte Series ? Erythrocyte Series ?% Myeloblasts ? % Pronormoblasts ??3.0 % Progranulocytes ?0.5% Basophilic Normoblasts ??5.0 % Myelocytes ? 2.5% Poly Normoblasts ??7.5 % Metamyelocytes ? 9.5% Ortho Normoblasts 15.0 % Band Granulocytes ? 12.5% TOTAL 25.5 % Segmented Granulocytes ??1.0 % Eosinophils / Precursors ?Other Series ??0.5 % Basophils / Precursors ?% Lymphoblasts 57.5 % TOTAL ?0.5% Prolymphocytes ?15.0% Lymphocytes ? 2.0% Monoblasts ?12.5% Promonocytes ?% Monocytes ?% Plasma Cells / Precursors ?% Other ?30.0% TOTAL Megakaryocytes ??are present Histiocytes / Macrophages ??are present Cellularity ??can not be evaluated with certainty, a few probable normocellular particles are seen M E Ratio ??5 1 Clot Sections ??show a blood clot without bone marrow particles (CSA/amc) DIAGNOSIS ? DIAGNOSIS ??BONE MARROW BIOPSY ? - HEMODILUTED MARROW WITH NO EVIDENCE OF ACUTE LEUKEMIA. This case has been personally reviewed and interpreted by the attending (teaching) pathologist. Panel Laminator ? KULWANT WELLER PATHOLOGIST ?Tayo Shannon M.D. ELECTRONICALLY SARKISTayo Adler MISCELLANEOUS SAMPLES / Unknown 07/15/2003 1:06 PM VISUAL C DEVELOPER 07/15/2003 1:06 PM VISUAL C DEVELOPER Historical Provider MD LAB - PATHOLOGY/C YTOLOGY ORDERABLES [facility] PATH REPORT * BONE MARROW BIOPSY (06/09/2003 12:00 AM VISUAL C DEVELOPER) Result CASE NUMBER [id number] [facility] PATH REPORT Comment: ORDERING PHYSICIAN ??ANTONIO GARRETT SPECIMEN TYPE ?Peripheral Blood CLINICAL HISTORY ? The patient is a 7-year-old boy. PERIPHERAL BLOOD ? PERIPHERAL BLOOD ?Quantitative Data ?WBC Differential WBC ?125.83 x103/ul ?80 % Blasts RBC ?3.94 x106/ul ? % Progranulocytes / Myelocytes Hgb ?10.4 mg/dl ? % Metamyelocytes Hct ?31.3 % ? 1 % Band Granulocytes ?? MCV ?79.4 fl ?3 % Segmented Granulocytes MCH ?26.4 pg ?% Eosinophils MCHC ? 33.2 % ? % Basophils Retic Count ? % ?14 % Lymphocytes Plat Count ? 62 x103/ul ? 2 % Monocytes ?% Variant Lymphs ?% Other ?100 % TOTAL COMMENTS ??slight aniso, poik BONE MARROW SMEARS ??(NO BONE MARROW PERFORMED) ? Granulocyte Series ? Erythrocyte Series ?% Myeloblasts ? % Pronormoblasts ?% Progranulocytes ? % Basophilic Normoblasts ?% Myelocytes ?% Poly Normoblasts ?% Metamyelocytes ?% Ortho Normoblasts ?% Band Granulocytes ? % TOTAL ?% Segmented Granulocytes ?% Eosinophils / Precursors ?Other Series ?% Basophils / Precursors ?% Lymphoblasts ?% TOTAL ? % Prolymphocytes ?% Lymphocytes ?% Monoblasts ?% Promonocytes ?% Monocytes ?% Plasma Cells / Precursors ?% Other ?% TOTAL Megakaryocytes Histiocytes / Macrophages Cellularity M E Ratio Clot Sections There is a paucity of platelets and a marked proliferation of immature cells. ??These cells have a high nucleo-cytoplasmic ratio, a fine chromatin pattern, and one to two nucleoli. ??Only occasional neutrophils are present. ??(DED/amc) DIAGNOSIS ? DIAGNOSIS ??PERIPHERAL BLOOD SMEAR ? - ACUTE LEUKEMIA, MORPHOLOGICALLY CONSISTENT WITH ? LYMPHOBLASTIC LEUKEMIA (SEE NOTE). 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 The performance characteristics of all immunohistochemical and indirect immunofluorescence stains (if any) cited in this report were determined by the Histopathology Laboratory of [facility] (immunohistochemistry) or the Histology Laboratory of [facility] (indirect immunofluorescence) in compliance with CLIA `88 regulations. ??Some of these tests rely on the use of analyte-specific reagents and are subject to specific labeling requirements by the FDA. ??Such tests were developed by the Histopathology Laboratory of [facility] or the Histology Laboratory of [facility] and have not been cleared or approved by the FDA. ??The FDA has determined that such clearance or approval is not necessary. ??These tests are used for clinical purposes and should not be regarded as investigational or for research. This case has been personally reviewed and interpreted by the attending (teaching) pathologist. Panel Laminator ? KULWANT WELLER PATHOLOGIST ?Ilya Bravo M.D. ELECTRONICALLY ILYA PETIT MISCELLANEOUS SAMPLE S / Unknown 06/09/2003 06/10/2003 7:54 AM VISUAL C DEVELOPER Historical Provider LAB - PATHOLOGY/C YTOLOGY ORDERABLES [facility] PATH REPORT documented in this encounter Visit Diagnoses Not on filedocumented in this encounter Care Teams Family Day Carer Relationship Specialty Start Date End Date Prosper Charles MD [address] [place] [address] PCP - General 05/11/09 10/03/11 Prosper Charles MD [address] [place] [address] PCP - General Family Medicine 10/04/11 Toñito Romeo MD [address] [place] [address] [facility] 10/04/11 documented as of this encounter
--- OUTSIDE RECORDS SUMMARY | 2024-04-15 02:50 | XMS_ITS | Encounter Summary ---
Author Organization [facility] Address [address] [place] [address] Care Team Providers Care Manager Animation Name Role Phone Viky Nelson MD Primary Care Provider [phone] Encounter Details Date Type Department Care Team (Latest Contact Info) Description 05/19/2009 12:01 AM WOOD HE[employer]AP RUBBER - 05/19/2009 11:59 PM [facility] Hospital Encounter CG DEFAULT [address] [place] [id number] Srinivas Maya MD [address] [place] [phone] Hematology Discharge Disposition: Home or Self Care Social History Tobacco Use Types Packs/Day Years Used Date Smoking Tobacco: Never Assessed Sex and Gender Information Value Date Recorded Sex Assigned at Not on file Gender Identity Not on file Sexual Orientation Not on file documented as of this encounter Progress Notes * Srinivas Maya MD - 05/19/2009 12:00 AM [facility] Pediatric Hematology/Oncology Dear Dr. Nelson: Yaya Gonsalves was seen in the [facility] on 05/19/09 for a combination routine followup visit and to evaluate a swollen cervical lymph node. He was due for his routine visit in about 2 weeks, butover the last 5-7 days he has had some URI symptoms, including cough and maybe some sore throat. Hehas not had any fever, earache, or marked nasal congestion. However, 3 or 4 days ago he noticed an enlarged lymph node on the right side of his neck. This node has been mildly tender. He has also noted some swelling and tenderness in the right side of his mouth along the gum line for the past several days, and yesterday he felt an erupting tooth. The rest of his review of systems was negative. On physical exam, he was in no acute distress. There were no skin rashes, bruises or petechiae. There was no nasal congestion. His tympanic membranes were normal. His eyes were anicteric with equal, round and reactive pupils, and intact extraocular movements. He had no pharyngeal erythema or exudate, and his tonsils were not swollen; however, the right upper molar was erupting with some surrounding redness and swelling. His neck was supple. There was a 1.5 x 1 cm mildly tender, mobile, rubbery lymph node at the right jaw angle. There was a subcentimeter lymph node at the left jaw angle which has been stable from previous exams. There was no other palpable lymphadenopathy. His lungs were delfin r to auscultation. His cardiac exam was normal. His abdomen was soft and nontender without masses or hepatosplenomegaly. His extremities were normal and his neurologic exam was intact. A rapid strep screen was negative. His CBC showed a hemoglobin of 13.8, hematocrit 39.1, platelets 261,000, white count 7.01 with 5% neutrophils, 4% bands, 23% lymphocytes, 12% monocytes, 1% eosinophils, and 5% variant lymphocytes. This is normal for age and suggests that he is remaining in complete remission at this time. We also renzo an LDH which was 613 (normal) and a uric acid of 4.0 (also normal). A rapid strep test was negative; the throat culture is still pending. [note added in proof: throat culture was positive for Group A beta-Strep.) I think given his normal CBC and the concurrent erupting tooth that this lymph node is almost certainly reactive in nature. I did give him a prescription for clindamycin 150 mg 3 times a day to coverand infection in his gum given a suggestive history of penicillin allergy in the past. I asked his father to call me early next week to see how he is doing. If the lymph node becomes less tender and swollen, then no further evaluation is necessary. Presuming he recovers from this uneventfully, we will plan to see him back in 6 months. Thank you for allowing us to share in Yaya's care. If you have any questions, please do not hesitate to contact me. Sincerely, Dictated By: SRINIVAS MAYA MD Electronically Signed 05/24/2009 09:48:50 WO[employer] HEEL [employer] RUBBER WSF/br JOB ID: [id number] cc: VIKY NELSON MD HEEL FLAP RUBBER documented in this encounter Plan of Treatment Not on file documented as of this encounter Procedures Procedure Name Priority Date/Time Associated Diagnosis Comments URIC ACID BLOOD Timed 05/19/2009 12:20 PM WO[employer] RUBBER Ac Lym Leuk Wo Achv Rmsn CBC W MANUAL DIFFERENTIAL Timed 05/19/2009 12:20 PM WO[employer] RUBBER Ac Lym Leuk Wo Achv Rmsn LDH BLOOD Timed 05/19/2009 12:20 PM WO[employer] RUBBER Ac Lym Leuk Wo Achv Rmsn STREP A SCREEN DIRECT Timed 05/19/2009 12:00 PM WO[employer] RUBBER Ac Lym Leuk Wo Achv Rmsn CULTURE STREP GROUP A Timed 05/19/2009 12:00 PM WO[employer] RUBBER Ac Lym Leuk Wo Achv Rmsn documented in this encounter Results * URIC ACID BLOOD (05/19/2009 12:20 PM WOOD HEEL [employer] RUBBER) Uric Acid 4.0 2.7 - 6.7 mg/dl [facility] Specimen Type/Condition [facility] BLOOD SPECIMEN / Unknown 05/19/2009 12:20 PM WO[employer] RUBBER Srinivas Maya MD LAB - CHEMISTRY OR DERABLES [facility] * LDH BLOOD (05/19/2009 12:20 PM WOOD HEEL FLAP RUBBER) LDH 613 470 - 750 Units/L [facility] Specimen Type/Condition [facility] BLOOD SPECIMEN / Unknown 05/19/2009 12:20 PM WO[employer] RUBBER Srinivas Maya MD LAB - CHEMISTRY OR DERABLES [facility] * CBC W MANUAL DIFFERENTIAL (05/19/2009 12:20 PM WO[employer] HEEL [employer] RUBBER) WBC 7.01 4.5 - 14.5 K/cumm [facility] RBC 4.82 4.00 - 5.20 mill/cumm [facility] Hemoglobin 13.8 11.5 - 15.5 gm/dl [facility] Hematocrit 39.1 35.0 - 45.0 % [facility] MCV 81.1 77.0 - 95.0 cu microns [facility] MCH 28.6 25.0 - 33.0 uug [facility] MCHC 35.3 31.0 - 37.0 % [facility] RDW 13.1 % [facility] MPV 9.3 fl [facility] Platelet Count 261 100 - 400 K/cumm [facility] Comment Manual Diff Done [facility] Band % Manual 4 % [facility] Neutrophils % Manual 55 24 - 66 % [facility] Lymphocytes % Manual 23 22 - 61 % [facility] Monocytes % Manual 12 3 - 15 % [facility] Eosinophils % Manual 1 0 - 10 % [facility] Atypical Lymphocyte % Manual 5 % [facility] RBC Morphology Slight Anisocytosis, Poikylocytosis [facility] BLOOD SPECIMEN / Unknown 05/19/2009 12:20 PM WO[employer] RUBBER Srinivas Maya MD LAB - HEMATOLOGY O RDERABLES Performing Organization Address [facility] Co de Phone Number [facility] * CULTURE STREP GROUP A (05/19/2009 12:00 PM WOOD HEEL FLAP RUBBER) Report [facility] Comment: Final - CULTURE Positive for Group A Beta Streptococci ENTIRE THROAT (SURFACE REGION OF NECK) / Unknown 05/19/2009 12:00 PM WO[employer] RUBBER Srinivas Maya MD LAB - MICROBIOLOGY ORDERABLES Performing Organization Address [facility] Co de Phone Number [facility] * STREP A SCREEN DIRECT (05/19/2009 12:00 PM WO[employer] RUBBER) Strep A Rapid Rapid test NEGATIVE for Group A Beta Strep, culture to follow. Negative [facility] ENTIRE THROAT (SURFACE REGION OF NECK) / Unknown 05/19/2009 12:00 PM WO[employer] FL[employer] RUBBER Srinivas Maya MD LAB - MICROBIOLOGY ORDERABLES Performing Organization Address [facility] de Phone Number [facility] documented in this encounter Visit Diagnoses Diagnosis Ac lym leuk wo achv rmsn Acute lymphoid leukemia, without mention of having achieved remission documented in this encounter Care Teams Manager Animation Relationship Specialty Start Date End Date Viky Nelson MD [address] [place] [address] PCP - General 05/11/09 10/03/11 documented as of this encounter
--- OUTSIDE RECORDS SUMMARY | 2024-04-15 02:50 | XMS_ITS | Encounter Summary ---
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) Procedures ECHO CONSULT - PEDIATRIC Toñito Romeo MD [address] [place] [id number] Referral ID Status Reason Start Date Expiration Date Visits Re quested Visits Authorized [id number] Closed 09/15/2015 03/13/2016 1 1 Encounter Details Date Type Department Care Team (Latest Contact Info) Description 10/20/2015 12:54 PM CDT - 10/20/2015 1:50 PM CDT Hospital Encounter [facility] at [address] [phone] Toñito Romeo MD [address] [place] [phone] Discharge Disposition: Home or Self Care [...] Sign Reading Time Taken Comments Blood Pressure 138/72 10/20/2015 12:00 PM CDT Pulse 109 10/20/2015 12:00 PM [...] Mass Index 20.21 10/20/2015 12:00 PM CDT documented in this encounter Progress Notes * Diana Pollard RN - 10/20/2015 3:00 PM CDT Angela here for Long-Term Follow-Up accompanied by parents and sister. No concerns today. Finished freshman year at [employer], did well academically. 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 No issues with sleep. Given patient access for Passport for Care. Dr. Romeo in to see Angela. * Toñito Romeo MD - 10/20/2015 1:31 PM CDT [facility] Late Effects Clinic Form Diagnosis: T-cell, ALL ?? Date of Last therapy: 05/16/2005 ?? Major Complications: none ?? Recommended Surveillance: Echo every 2 years PFT NA Other Dexa scan every 5 years See discharge summary note for details of chemotherapy received. Interval History: Angela is doing well and has no significant concerns or complaints today. He has been getting is blood pressure checked periodically at home and has had normal readings. Past Medical History Diagnosis Date ??? Acute lymphoid leukemia in remission Past Surgical History Procedure Laterality Date ??? Port-a-cath 07-15-03 placed ??? Port-a-cath 10-08-05 removed Family History Problem Relation Age of Onset ??? Diabetes Maternal Grandfather ??? Cancer Paternal Grandfather ??? Cancer Mother ??? Diabetes Mother gestational There is no immunization history on file for this patient. No Known Allergies No current outpatient prescriptions on file. No current facility-administered medications for this encounter. Social History: He just completed his first year of college at [employer]. He switched his major from computer science to [employer]. He still lives with his parents. He is working at the [employer] this summer. ROS: 10 systems tested and all negative Physical Exam: Constitutional: BP 138/72 mmHg Pulse 109 Temp(Src) 98.3 ??F Resp 12 Ht 1.829 m (6') Wt 67.6 kg (149 lb 0.5 oz) BMI 20.21 kg/m2 SpO2 99%, Body mass index is 20.21 kg/(m^2). BSA (Calculated): 1.85 General Appearance: alert, no distress and smiling [...] disease Results: Recent Results (from the past 336 hour(s)) CBC W AUTO DIFFERENTIAL Collection Time: 10/20/15 1:49 PM Result Value Ref Range WBC 5.1 4.4-10.7 x10E9/L WBC Corrected x10E9/L RBC 5.46 (H) 3.80-5.40 x10E12/L Hgb 15.6 12.0-17.6 gm/dL HCT 44.8 35.2-51.7 % MCV 82.1 80.7-98.3 fl MCH 28.6 26.7-34.0 pg MCHC 34.8 30.8-35.9 gm/dL Plt Ct 267 153-416 x10E9/L RDW-CV 12.7 12.1-14.9 % MPV 10.1 9.4-12.9 fl Neutro 54.9 44.0-73.0 % Lymph 33.9 20.0-43.0 % [place] 8.2 5.0-13.0 % Eos 1.0 0.0-6.0 % Baso 1.4 0.0-2.0 % Immature Grans 0.6 0-1 % Neutro Abs 2.80 2.01-7.14 x10E9/L Lymph Abs 1.73 1.07-3.94 x10E9/L [place] Abs 0.42 0.26-1.07 x10E9/L Eosin Abs 0.05 0-0.47 x10E9/L Baso Abs 0.07 0-0.08 x10E9/L Immature Grans (Abs) 0.03 0.00-0.06 x10E9/L NRBC Auto 0 /100 WBC Echo: Structurally normal heart. Normal biventricular systolic function. Impression: Angela continues to do well and is without signs of recurrent disease or secondary malignancy. 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 Stat.:Outpatient Room: ECHO ONLY Reason for Study:Evaluate function. Chemo F/U History / Clinical:2-d echo with doppler and color-flow Procedures:2D Non-congenital, Doppler Complete, Color Flow Visit ID: [id number] SUMMARY: Impression: Structurally normal heart. Normal biventricular [...] Garcia MD Toñito Romeo MD ECHO ORDERABLES [facility] [address] [place] [address] * (ABNORMAL) CBC W AUTO DIFFERENTIAL (10/20/2015 1:49 PM CDT) WBC 5.1 4.4 - 10.7 x10E9/L 10/20/2015 2:13 PM CDT [facility] WBC Corrected x10E9/L 10/20/2015 2:13 PM CDT [facility] RBC 5.46(H) 3.80 - 5.40 x10E12/L 10/20/2015 2:13 PM CDT [facility] Hemoglobin 15.6 12.0 - 17.6 gm/dL 10/20/2015 2:13 PM CDT [facility] Hematocrit 44.8 35.2 - 51.7 % 10/20/2015 2:13 PM [facility] MCV 82.1 80.7 - 98.3 fl 10/20/2015 2:13 PM [facility] MCH 28.6 26.7 - 34.0 pg 10/20/2015 2:13 PM [facility] MCHC 34.8 30.8 - 35.9 gm/dL 10/20/2015 2:13 PM [facility] Platelet Count 267 153 - 416 x10E9/L 10/20/2015 2:13 PM [facility] RDW-CV 12.7 12.1 - 14.9 % 10/20/2015 2:13 PM [facility] MPV 10.1 9.4 - 12.9 fl 10/20/2015 2:13 PM [facility] Neutrophils % 54.9 44.0 - 73.0 % 10/20/2015 2:13 PM [facility] Lymphocytes % 33.9 20.0 - 43.0 % 10/20/2015 2:13 PM [facility] Monocytes % 8.2 5.0 - 13.0 % 10/20/2015 2:13 PM [facility] Eosinophils % 1.0 0.0 - 6.0 % 10/20/2015 2:13 PM [facility] Basophils % 1.4 0.0 - 2.0 % 10/20/2015 2:13 PM [facility] Immature Granulocytes 0.6 0 - 1 % 10/20/2015 2:13 PM [facility] Neutrophil Absolute 2.80 2.01 - 7.14 x10E9/L 10/20/2015 2:13 PM [facility] Lymphocytes Absolute 1.73 1.07 - 3.94 x10E9/L 10/20/2015 2:13 PM [facility] Monocytes Absolute 0.42 0.26 - 1.07 x10E9/L 10/20/2015 2:13 PM [facility] Eosinophils Absolute 0.05 0 - 0.47 x10E9/L 10/20/2015 2:13 PM [facility] Basophils Absolute 0.07 0 - 0.08 x10E9/L 10/20/2015 2:13 PM [facility] Immature Granulocytes Absolute 0.03 0.00 - 0.06 x10E9/L 10/20/2015 2:13 PM CDT [facility] nRBC Auto 0 /100 WBC 10/20/2015 2:13 PM CDT [facility] Blood BLOOD SPECIMEN / Unknown 10/20/2015 1:49 PM CDT 10/20/2015 1:52 PM CDT Toñito Romeo MD LAB - HEMATOLOGY ORD ERABLES Performing Organization Address City/State/[facility] Co de Phone Number [facility] [address] [place] [phone] documented in this encounter Visit Diagnoses Diagnosis 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
--- OUTSIDE RECORDS SUMMARY | 2024-04-15 02:50 | XMS_ITS | Encounter Summary ---
Author Organization [facility] Address [address] [place] [address] Care Team Providers Care Kitchen Hand Name Role Phone Prosper Charles MD Primary Care Provider +1 [phone] Encounter Details Date Type Department Care Team (Latest Contact Info) Description 11/16/2010 2:24 PM CDT - 11/16/2010 11:59 PM CDT Hospital Encounter [facility] at [address] [address] Discharge Disposition: Home or Self Care Social [...] Sign Reading Time Taken Comments Blood Pressure 104/70 11/16/2010 2:00 PM CDT Pulse 96 11/16/2010 2:00 PM CDT Temperature 36.7 ??C (98 ??F) 11/16/2010 2:00 PM CDT Respiratory Rate 16 11/16/2010 2:00 PM CDT Oxygen Saturation 99% 11/16/2010 2:00 PM CDT Inhaled Oxygen Concentration - - Weight 50.5 kg (111 lb 5.3 oz) 11/16/2010 2:00 P M CDT Height 167.3 cm (5' 5.87 ) 11/16/2010 2:00 PM CD T Body Mass Index 18.04 11/16/2010 2:00 PM CDT Body Mass Index Percentile 30.06% 11/16/2010 2:0 0 PM CDT Growth Chart: [facility] (Boys, 2-2 0 Years) documented in this encounter Progress Notes * Danyelle Mejia RN - 11/16/2010 4:09 PM CDT Arrived in clinic with Father for scheduled visit and labs. Triaged and assessed by RN. No complaints to RN at this time. Patient examined by Dr. Oliver. Patient directed over to [facility] lab for fingerstick CBC. Reminded family to schedule next appointment. [facility] * Srinivas Oliver MD - 11/16/2010 3:58 PM CDT Hematology/Oncology Progress/Admission Note 11/16/2010 Yaya Gonsalves PCP: Prosper Charles MD Diagnosis: T cell ALL Protocol/Regimen: per [id number] No Known Allergies No current outpatient prescriptions on file prior to encounter. Interval History Doing well since last visit--no fevers, no headaches, no bone/joint pain. Starting high school thismonth. Cardiac echo earlier this year showed normal ejection fraction/shortening fraction. Past Medical History: unchanged Family Medical History: [...] N/A Seizure: N/A Other: no 10) Psych: Behavior: no Other: no 11) Allergy/Immun: no 12) Pain: no 13) Nutritional Status: good Physical Exam Constitutional: BP 104/70 Pulse 96 Temp 98 ??F Resp 16 Ht 1.673 m (5' 5.87 ) Wt 50.5 kg (111 lb 5.3 oz) BMI 18.04 kg/m2 SpO2 99% BSA (Calculated): 1.53 General Appearance: W/D, W/N, no acute distress [...] hour(s)) CBC W AUTO DIFFERENTIAL Collection Time 11/16/10 3:48 PM Component Value Range WBC 5.97 4.5 - 14.5 (K/cumm) RBC 5.23 4.50 - 5.30 (mill/cumm) Hgb 15.0 13.0 - 16.0 (gm/dl) Hct 42.3 37.0 - 49.0 (%) MCV 80.9 78.0 - 98.0 (cu microns) MCH 28.7 25.0 - 35.0 (uug) MCHC 35.5 31.0 - 37.0 (%) RDW 12.[address] K/CUMM 227 100 - 400 (K/cumm) Gran 51.7 24 - 66 (%) Lymph 33.3 22 - 61 (%) [place] 8.4 3 - 15 (%) Eos 5.9 0 - 10 (%) Baso 0.7 0 - 1 (%) Manual Diff Comment Automated Diff Performed Procedures None Assessment 15 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) documented in this encounter Results * CBC W AUTO DIFFERENTIAL (11/16/2010 3:48 PM CDT) WBC 5.97 4.5 - 14.5 K/cumm [facility] RBC 5.23 4.50 - 5.30 mill/cumm [facility] Hemoglobin 15.0 13.0 - 16.0 gm/dl [facility] Hematocrit 42.3 37.0 - 49.0 % [facility] MCV 80.9 78.0 - 98.0 cu microns [facility] MCH 28.7 25.0 - 35.0 uug [facility] MCHC 35.5 31.0 - 37.0 % [facility] RDW 12.7 % [facility] MPV 10.0 fl [facility] Platelet Count 227 100 - 400 K/cumm [facility] Granulocytes % 51.7 24 - 66 % [facility] Lymphocytes % 33.3 22 - 61 % [facility] Monocytes % 8.4 3 - 15 % [facility] Eosinophils % 5.9 0 - 10 % [facility] Basophils % 0.7 0 - 1 % [facility] Comment Manual Diff Automated Diff Performed [facility] BLOOD SPECIMEN / Unknown 11/16/2010 3:48 PM CDT 11/16/2010 3:57 PM CDT Srinivas Oliver MD LAB - HEMATOLOGY O RDERABLES Performing Organization Address City/State/[facility] Co de Phone Number [facility] [address] [place] [address] documented in this encounter Visit Diagnoses Diagnosis 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
--- OUTSIDE RECORDS SUMMARY | 2024-04-15 02:50 | XMS_ITS | Referral Summary ---
Author Organization [facility] [address] Address [address] [place] [phone] Care Team Providers Care Human Resources Director Name Role Phone Unknown, Notinfile Primary Care [...] on file Legal Sex Male 11:51 PM LINING SETTER Gender Identity Not on file Sexual Orientation Not on file Last Filed Vital Signs Vital Sign Reading Time Taken Comments Blood Pressure 128/80 03/30/2022 9:32 AM LINING SETTER Pulse 99 03/30/2022 9:32 AM LINING SETTER Temperature 36.9 ??C (98.5 ??F) 03/30/2022 9:32 AM CS T Respiratory Rate 16 03/30/2022 9:32 AM LINING SETTER Oxygen Saturation 98% 03/30/2022 9:32 AM LINING SETTER Inhaled Oxygen Concentration - - Weight 84.4 kg (186 lb) 03/30/2022 9:32 AM LINING SETTER Height 188 cm (6' 2 ) 03/30/2022 9:32 AM LINING SETTER Body Mass Index 23.88 03/30/2022 9:32 AM LINING SETTER Plan of Treatment Not on [place] [id number] [employer] Care Teams Human Resources Director Relationship Specialty Start Date End Date Unknown, Notinfile PCP - General 08/26/18
--- OUTSIDE RECORDS SUMMARY | 2024-04-15 02:50 | XMS_ITS | Encounter Summary ---
Author Organization [facility] Address [address] [place] [address] Care Team Providers Care Batch Plant Operator Name Role Phone Prosper Charles MD Primary Care Provider [phone]- [phone] Toñito Romeo MD Unavailable Encounter Details Date Type Department Care Team (Late st Contact Info) Description 10/04/2011 Orders Only [facility] at [address] [address] Diana Pollard RN Leukemia, acute lymphoid, in remission (HCC) [...] remission documented in this encounter Care Teams Batch Plant Operator Relationship Specialty Start Date End Date Prosper Charles MD PCP - General Family Medicine 10/04/11 Toñito Romeo MD [address] [place] [id number] Allergy Nurse Pediatrics 10/04/11 documented as of this encounter
--- OUTSIDE RECORDS SUMMARY | 2024-04-15 02:50 | XMS_ITS | Patient Health Summary ---
Author Organization [facility] Address [address] [place] [address] Care Team Providers Care Machine Mover Name Role Phone Prosper Charles MD Primary Care Provider [phone] Toñito Romeo MD Unavailable Note from [facility],non-owned Affiliates and Associated Physician Practices is amultiple site organization consisting of ambulatory clinics and hospital sitesin [place], [place], [place] and [place]. This disclosure is being madepursuant to the Care Everywhere program and may not contain all information available regarding this patient. Last updated 18.[facility] Allergies No known active allergies Medications Be aware that medications may not be up to date on this document. Always verify current medications with the patient. 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) * URINALYSIS REFLEX TO MICROSCOPIC NO CULTURE(Performed 09/28/2012) 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) * URINE MICROSCOPIC ONLY(Performed 09/28/2012) 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) * LDH BLOOD(Performed 09/28/2012) 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) * URIC ACID BLOOD(Performed 09/28/2012) 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) * COMPREHENSIVE METABOLIC PANEL(Performed 09/28/2012) 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) * CBC W AUTO DIFFERENTIAL(Performed 09/28/2012) 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) * DIFFERENTIAL MANUAL(Performed 09/28/2012) 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) * US SCROTUM W DOPPLER(Performed 09/28/2012) 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), Swelling * URINALYSIS REFLEX TO MICROSCOPIC NO CULTURE(Performed 11/01/2011) 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) * URINE MICROSCOPIC ONLY(Performed 11/01/2011) 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) * ECHO CONSULT - PEDIATRIC(Performed 11/01/2011) 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) * SLIDE SCAN HEMATOLOGY(Performed 11/01/2011) 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) * T4 TOTAL(Performed 11/01/2011) 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) * TSH(Performed 11/01/2011) 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) * COMPREHENSIVE METABOLIC PANEL(Performed 11/01/2011) 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) * CBC W AUTO DIFFERENTIAL(Performed 11/01/2011) 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) * DEXA BONE DENSITY AXIAL SKELETON(Performed 11/01/2011) Performed for Leukemia, acute, in remission (HCC) * CBC W AUTO DIFFERENTIAL(Performed 05/30/2011) 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) * CBC W AUTO DIFFERENTIAL(Performed 11/16/2010) 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) * CARDIAC ECHOCARDIOGRAM COMPLETE ORDER(Performed 11/16/2010) * DIFFERENTIAL MANUAL(Performed 05/25/2010) * CBC W AUTO DIFFERENTIAL(Performed 05/25/2010) 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) * CBC W MANUAL DIFFERENTIAL(Performed 11/07/2009) Performed for Acute Lymphoid Leukemia in Remission (HCC) * URIC ACID BLOOD(Performed 05/19/2009) Performed for Ac Lym Leuk Wo Achv Rmsn * LDH BLOOD(Performed 05/19/2009) Performed for Ac Lym Leuk Wo Achv Rmsn * CBC W MANUAL DIFFERENTIAL(Performed 05/19/2009) Performed for Ac Lym Leuk Wo Achv Rmsn * CULTURE STREP GROUP A(Performed 05/19/2009) Performed for Ac Lym Leuk Wo Achv Rmsn * STREP A SCREEN DIRECT(Performed 05/19/2009) Performed for Ac Lym Leuk Wo Achv Rmsn * BONE MARROW BIOPSY(Performed 06/10/2005) * BONE MARROW BIOPSY(Performed 07/15/2003) * BONE MARROW BIOPSY(Performed 06/09/2003) Results * ECHO CONSULT - PEDIATRIC (10/20/2015 1:55 PM CDT) Only the most recent of3 resultswithin the time period is included. 10/20/2015 1:55 PM CDT Narrative Procedure Note Alisha Garcia MD - 10/20/[address] [place] [address] Fax Non-Congenital Transthoracic Report Pat.Name: ANGELA GONSALVES Pat.ID: [id number] St.Date: 10/20/2015 Exam Time: 1:55:00 PM Study Type:Non-Congenital TTE Height: 183cm Weight: 68kg BSA: 1.89 m2 Age: 5 1995,20Y Sex: MALE BP: 138/72 Sonogrphr: Citlalli Jesus RDCS Pat. Stat.:Outpatient Room: ECHO ONLY Reason for Study:Evaluate function. Chemo F/U History / Clinical:2-d echo with doppler and color-flow Procedures:2D Non-congenital, Doppler Complete, Color Flow Visit ID: [id number] SUMMARY: Impression: Structurally normal heart. Normal biventricular [...] Garcia MD Toñito Romeo MD ECHO ORDERABLES [facility] [address] [place] [address] * (ABNORMAL) CBC W AUTO DIFFERENTIAL (10/20/2015 1:49 PM CDT) Only the most recent of8 resultswithin the time period is included. WBC 5.1 4.4 - 10.7 x10E9/L 10/20/2015 2:13 PM CDT [facility] WBC Corrected x10E9/L 10/20/2015 2:13 PM CDT [facility] RBC 5.46(H) 3.80 - 5.40 x10E12/L 10/20/2015 2:13 PM CDT [facility] Hemoglobin 15.6 12.0 - 17.6 gm/dL 10/20/2015 2:13 PM CDT [facility] Hematocrit 44.8 35.2 - 51.7 % 10/20/2015 2:13 PM [facility] MCV 82.1 80.7 - 98.3 fl 10/20/2015 2:13 PM [facility] MCH 28.6 26.7 - 34.0 pg 10/20/2015 2:13 PM [facility] MCHC 34.8 30.8 - 35.9 gm/dL 10/20/2015 2:13 PM [facility] Platelet Count 267 153 - 416 x10E9/L 10/20/2015 2:13 PM [facility] RDW-CV 12.7 12.1 - 14.9 % 10/20/2015 2:13 PM [facility] MPV 10.1 9.4 - 12.9 fl 10/20/2015 2:13 PM [facility] Neutrophils % 54.9 44.0 - 73.0 % 10/20/2015 2:13 PM [facility] Lymphocytes % 33.9 20.0 - 43.0 % 10/20/2015 2:13 PM [facility] Monocytes % 8.2 5.0 - 13.0 % 10/20/2015 2:13 PM [facility] Eosinophils % 1.0 0.0 - 6.0 % 10/20/2015 2:13 PM [facility] Basophils % 1.4 0.0 - 2.0 % 10/20/2015 2:13 PM [facility] Immature Granulocytes 0.6 0 - 1 % 10/20/2015 2:13 PM [facility] Neutrophil Absolute 2.80 2.01 - 7.14 x10E9/L 10/20/2015 2:13 PM [facility] Lymphocytes Absolute 1.73 1.07 - 3.94 x10E9/L 10/20/2015 2:13 PM [facility] Monocytes Absolute 0.42 0.26 - 1.07 x10E9/L 10/20/2015 2:13 PM [facility] Eosinophils Absolute 0.05 0 - 0.47 x10E9/L 10/20/2015 2:13 PM [facility] Basophils Absolute 0.07 0 - 0.08 x10E9/L 10/20/2015 2:13 PM CDT [facility] Immature Granulocytes Absolute 0.03 0.00 - 0.06 x10E9/L 10/20/2015 2:13 PM CDT [facility] nRBC Auto 0 /100 WBC 10/20/2015 2:13 PM T [facility] Blood BLOOD SPECIMEN / Unknown 10/20/2015 1:49 PM CDT 10/20/2015 1:52 PM CDT Toñito Romeo MD LAB - HEMATOLOGY ORD ERABLES [facility] [address] [place] [address] * (ABNORMAL) URINALYSIS ROUTINE AUTO (09/28/2012 12:43 PM CDT) Only the most recent of2 resultswithin the time period is included. Color UA Yellow Straw, Yellow, Dark Yellow 09/28/2012 2:35 PM T [facility] Clarity UA Clear 09/28/2012 2:35 PM T [facility] Specific [place] UA 1.026 1.005 - 1.030 09/28/2012 2:35 PM T [facility] pH UA 6.0 5.0 - 8.0 09/28/2012 2:35 PM T [facility] Protein UA Negative Negative 09/28/2012 2:35 PM T [facility] Blood UA Negative Negative 09/28/2012 2:35 PM T [facility] Leukocyte UA Negative Negative 09/28/2012 2:35 PM T [facility] Nitrite UA Negative Negative 09/28/2012 2:35 PM T [facility] Glucose UA Negative Negative 09/28/2012 2:35 PM T [facility] Ketone UA Trace(A) Negative 09/28/2012 2:35 PM T [facility] Bilirubin UA Negative Negative 09/28/2012 2:35 PM T [facility] Urobilinogen UA 0.2 0.1 - 1.0 EU/dL 09/28/2012 2:35 PM T [facility] WBC UA Auto 0-2 0-2, 2-5 #/hpf 09/28/2012 2:35 PM T [facility] RBC UA Auto 0-2 0-2, 2-5 #/hpf 09/28/2012 2:35 PM CDT [facility] Epithelial Cell UA Auto 0-2 0-2, 2-5 #/hpf 09/28/2012 2:35 PM CDT [facility] Bacteria UA Auto None seen None seen 09/29/19 13 2:35 PM CDT [facility] Yeast UA Auto None seen None seen 09/28/2012 2:35 PM CDT [facility] Sperm UA Auto Absent 09/28/2012 2:35 PM CDT [facility] Hyaline Casts UA Auto 5-10(A) 0 - 2 #/lpf 09/28/2012 2:35 PM CDT [facility] Urine specimen (specimen) URINE SPECIMEN FROM URINARY BLADDER / Unknown 09/28/2012 12:43 PM CDT 09/28/2012 12:46 PM CDT Guillermo Jackson MD LAB - URINALYSIS ORDERABLES Performing Organization Address [facility] de Phone Number [facility] [address] [place] [address] * URINALYSIS MICROSCOPIC ONLY (09/28/2012 12:43 PM CDT) Only the most recent of2 resultswithin the time period is included. RBC UA 0-2, 2-5 # /hpf 09/28/2012 2:35 PM CDT [facility] WBC UA 0-2, 2-5 # /hpf 09/28/2012 2:35 PM CDT [facility] Bacteria UA None Seen, Trace 09/28/2012 2:35 PM CDT [facility] Epithelial Cell UA 0-2, 2-5 09/28/2012 2:35 PM CDT [facility] Mucus UA 3+ 09/28/2012 2:35 PM CDT [facility] Urine specimen (specimen) URINE SPECIMEN FROM URINARY BLADDER / Unknown 09/28/2012 12:43 PM CDT 09/28/2012 12:46 PM CDT Guillermo Jackson MD LAB - URINALYSIS ORDERABLES Performing Organization Address [facility] Co de Phone Number [facility] [address] [place] [address] * URIC ACID BLOOD (09/28/2012 11:54 AM CDT) Only the most recent of2 resultswithin the time period is included. Uric Acid 5.5 2.0 - 5.5 mg/dL 09/28/2012 1:33 PM T [facility] Blood specimen (specimen) BLOOD SPECIMEN / Unknown 09/28/2012 11:54 AM CDT 09/28/2012 12:13 PM CDT Guillermo Jackson MD LAB - CHEMISTRY O RDERABLES [facility] [address] [place] [address] * (ABNORMAL) COMPREHENSIVE METABOLIC PANEL (09/28/2012 11:54 AM CDT) Only the most recent of2 resultswithin the time period is included. Glucose 108(H) 70 - 105 mg/dL 09/28/2012 1:33 PM [facility] Sodium 140 136 - 145 mmol/L 09/28/2012 1:33 PM [facility] Potassium 3.5 3.5 - 5.1 mmol/L 09/28/2012 1:33 PM [facility] Chloride 106 98 - 107 mmol/L 09/28/2012 1:33 PM [facility] CO2 21 20 - 28 mmol/L 09/28/2012 1:33 PM [facility] Calcium 10.29 9.08 - 10.48 mg/dL 09/28/2012 1:33 PM [facility] Anion Gap 13 5 - 20 mmol/L 09/28/2012 1:33 PM [facility] BUN 13.4 5.3 - 18.7 mg/dL 09/28/2012 1:33 PM [facility] Creatinine 1.01 0.61 - 1.07 mg/dL 09/28/2012 1:33 PM [facility] eGFR by MDRD ml/min/1.7 3m2 09/28/2012 1:33 PM [facility] Comment:eGFR calculations ar e not performed for children under 18 years old. eGFR by MDRD ml/min/1.7 3m2 09/28/2012 1:33 PM CDT [facility] Comment:eGFR calculations ar e not performed for children under 18 years old. Alkaline Phosphatase 187 100 - 390 U/L 09/28/2012 1:33 PM CDT [facility] ALT 10 6 - 46 U/L 09/28/2012 1:33 PM CDT [facility] AST 13 3 - 35 U/L 09/28/2012 1:33 PM T [facility] Protein Total 7.7 6.3 - 8.2 gm/dL 09/28/2012 1:33 PM T [facility] Albumin 4.7 3.3 - 4.9 gm/dL 09/28/2012 1:33 PM T [facility] Bilirubin Total 2.2(H) 0.3 - 1.2 mg/dL 09/28/2012 1:33 PM CDT [facility] Blood specimen (specimen) BLOOD SPECIMEN / Unknown 09/28/2012 11:54 AM CDT 09/28/2012 12:13 PM CDT Guillermo Jackson MD LAB - CHEMISTRY O RDERABLES Performing Organization Address City/[facility] Co de Phone Number [facility] [address] [place] [address] * LDH BLOOD (09/28/2012 11:54 AM CDT) Only the most recent of2 resultswithin the time period is included. Pathologist [facility] LDH 178 140 - 260 U/L 09/28/2012 1:33 PM T [facility] Blood specimen (specimen) BLOOD SPECIMEN / Unknown 09/28/2012 11:54 AM CDT 09/28/2012 12:13 PM CDT Guillermo Jackson MD LAB - CHEMISTRY O RDERABLES Performing Organization Address City/[facility] Co de Phone Number [facility] [address] [place] [address] * (ABNORMAL) DIFFERENTIAL MANUAL (09/28/2012 11:54 AM CDT) Only the most recent of2 resultswithin the time period is included. Pathologist [facility] WBC Auto 7.5 4.5 - 14.5 X(10)9/L 09/28/2012 1:50 PM CDT [facility] Neutrophil % Manual 78(H) 24 - 66 % 09/28/2012 1:50 PM CDT [facility] Lymphocytes % Manual 14(L) 22 - 61 % 09/28/2012 1:50 PM CDT [facility] Monocytes % Manual 5 3 - 15 % 09/28/2012 1:50 PM CDT [facility] Band % Manual 3 % 09/28/2012 1:50 PM CDT [facility] Cells Counted 100 # cells 09/28/2012 1:50 PM CDT [facility] Platelet Estimation Adequate platelets Normal, Adequate platelets 09/28/2012 1:50 PM CDT [facility] WBC Morph Normal 09/28/2012 1:50 PM CDT [facility] Anisocytosis Occasional(A ) None 09/28/2012 1:50 PM CDT [facility] Blood specimen (specimen) BLOOD SPECIMEN / Unknown 09/28/2012 11:54 AM CDT 09/28/2012 12:13 PM CDT Jane Stevenson FUR DRESSER-SPORTS PHYSIOLOGIST LAB - HEM ATOLOGY ORDERABLES Performing Organization Address City/State/[facility] Co de Phone Number [facility] [address] [place] [address] * US SCROTUM WITH DOPPLER (09/28/2012 11:37 [...] Dictated by: Brent Greenfield MD Jane Stevenson FUR DRESSER-SPORTS PHYSIOLOGIST US ORDERA BLES * SLIDE SCAN HEMATOLOGY (11/01/2011 1:45 PM CDT) [facility] Hematology Reflex Status Auto Diff Verified 11/01/2011 3:15 PM CDT [facility] Blood specimen (specimen) BLOOD SPECIMEN / Unknown 11/01/2011 1:45 PM CDT 11/01/2011 1:54 PM CDT Toñito Romeo MD LAB - HEMATOLOGY ORD ERABLES Performing Organization Address City/[facility]/ZIP Co de Phone Number [facility] [place] [address] * TSH (11/01/2011 1:45 PM CDT) [facility] TSH 1.53 0.35 - 4.95 uIU/mL 11/02/2011 1:20 AM CDT [facility] Blood specimen (specimen) BLOOD SPECIMEN / Unknown 11/01/2011 1:45 PM CDT 11/01/2011 1:53 PM CDT Toñito Romeo MD LAB - CHEMISTRY ORDE ESMER Performing Organization Address City/[facility]/ZIP Co de Phone Number [facility] [address] [place] [phone] * T4 TOTAL (11/01/2011 1:45 PM CDT) [facility] T4 Total 5.85 4.87 - 11.7 ug/mL 11/02/2011 1:20 AM CDT [facility] Blood specimen (specimen) BLOOD SPECIMEN / Unknown 11/01/2011 1:45 PM CDT 11/01/2011 1:53 PM CDT Toñito Romeo MD LAB - CHEMISTRY CHELY LYMAN [facility] Organization Address City/State/ZIP Co de Phone Number [facility] [place] [address] * DEXA BONE DENSITY AXIAL SKELETON (11/01/2011 12:09 PM CDT) Anatomical Region Laterality Modality Radiographic Sushila ging 11/01/2011 1:20 PM CDT Impressions 11/01/2011 4:39 PM CDT No significant decrease in bone mineral density when compared with age-matched norms.. Dictated by Jose Armando Coulter M.D. Narrative 11/01/2011 4:39 PM CDT EXAM: Bone densitometry COMPARISON: None TECHNIQUE: [employer] A ([id number]) Software version 13.3 [facility] FINDINGS: Referring Physician: Toñito Romeo Patient age: 16 Gender: Male Height: 175 cm Weight: 56.7 kg Indication: Acute leukemia in remission Technical quality: Adequate Total Bone mineral content: 2269.62 g Total Bone mineral density: 1.130 g/cm2 Z-score: 1.0 Procedure Note Delfin Houston A - 11/01/2011 EXAM: Bone densitometry COMPARISON: None TECHNIQUE: [employer] A ([id number]) Software version 13.3 [facility] FINDINGS: Referring Physician: Toñito Romeo Patient age: 16 Gender: Male Height: 175 cm Weight: 56.7 kg Indication: Acute leukemia in remission Technical quality: Adequate Total Bone mineral content: 2269.62 g Total Bone mineral density: 1.130 g/cm2 Z-score: 1.0 IMPRESSION No significant decrease in bone mineral density when compared with age-matched norms.. Dictated by Jose Armando Coulter M.D. Toñito Romeo MD DEXA ORDERABLES * CARDIAC ECHOCARDIOGRAM COMPLETE ORDER (11/16/2010 3:43 PM CDT) Narrative Procedure Note Document, Scanned - 11/16/2010 3:43 PM CDT Transcriptions Document, Scanned - 05/28/2010 8:20 PM ENERGY EFFICIENCY FINANCE MANAGER Scanned Document ECHO ORDERABLES * CBC W MANUAL DIFFERENTIAL (11/07/2009 1:20 PM CDT) Only the most recent of2 resultswithin the time period is included. WBC 4.71 4.5 - 14.5 K/cumm [facility] RBC 4.85 4.50 - 5.30 mill/cumm [facility] Hemoglobin 13.8 13.0 - 16.0 gm/dl [facility] Hematocrit 38.9 37.0 - 49.0 % [facility] MCV 80.2 78.0 - 98.0 cu microns [facility] MCH 28.5 25.0 - 35.0 uug [facility] MCHC 35.5 31.0 - 37.0 % [facility] RDW 12.8 % [facility] MPV 9.5 fl [facility] Platelet Count 227 100 - 400 K/cumm [facility] Comment Manual Diff Done [facility] Neutrophils % Manual 59 24 - 66 % [facility] Lymphocytes % Manual 35 22 - 61 % [facility] Monocytes % Manual 4 3 - 15 % [facility] Eosinophils % Manual 1 0 - 10 % [facility] Atypical Lymphocyte % Manual 1 % [facility] RBC Morphology Normal [facility] BLOOD SPECIMEN / Unknown 11/07/2009 1:20 PM CDT 11/07/2009 1:24 PM CDT Evie Maya MD LAB - HEMATOLOGY O RDERABLES [facility] [address] [place] [address] * STREP A SCREEN DIRECT (05/19/2009 12:00 PM ENERGY EFFICIENCY FINANCE MANAGER) Strep A Rapid Rapid test NEGATIVE for Group A Beta Strep, culture to follow. Negative [facility] ENTIRE THROAT (SURFACE REGION OF NECK) / Unknown 05/19/2009 12:00 PM ENERGY EFFICIENCY FINANCE MANAGER Evie Maya MD LAB - MICROBIOLOGY ORDERABLES Performing Organization Address City/[facility]/ZIP Co de Phone Number [facility] * CULTURE STREP GROUP A (05/19/2009 12:00 PM ENERGY EFFICIENCY FINANCE MANAGER) Report [facility] Comment: Final - CULTURE Positive for Group A Beta Streptococci ENTIRE THROAT (SURFACE REGION OF NECK) / Unknown 05/19/2009 12:00 PM ENERGY EFFICIENCY FINANCE MANAGER Evie Maya MD LAB - MICROBIOLOGY ORDERABLES [facility] * BONE MARROW BIOPSY (06/10/2005 9:15 AM ENERGY EFFICIENCY FINANCE MANAGER) Only the most recent of3 resultswithin the time period is included. Result CASE NUMBER [id number] [facility] PATH REPORT Comment: ORDERING PHYSICIAN ??EVIE MAYA SPECIMEN TYPE ?Bone Tiffanie Aspirate CLINICAL HISTORY [...] and interpreted by the attending (teaching) pathologist. Gear Repair Supervisor ? Leann Levy PATHOLOGIST ?Lazara Sung M.D. ELECTRONICALLY SARKIS LAZARA SUNG MISCELLANEOUS SAMPLES / Unknown 06/10/2005 9:15 AM ENERGY EFFICIENCY FINANCE MANAGER 06/10/2005 9:54 AM ENERGY EFFICIENCY FINANCE MANAGER Historical Provider LAB - PATHOLOGY/C YTOLOGY ORDERABLES [facility] PATH REPORT Care Teams Machine Mover Relationship Specialty Start Date End Date Prosper Charles MD PCP - General Family Medicine 10/04/11 Toñito Romeo MD [address] [place] [phone] [employer] [facility] 10/04/11
--- OUTSIDE RECORDS SUMMARY | 2024-04-15 02:50 | XMS_ITS | Encounter Summary ---
Author Organization [facility] Address [address] [place] [address] Care Team Providers Care Traffic Enumerator Name Role Phone Prosper Charles MD Primary Care Provider [phone] Toñito Romeo MD Unavailable Encounter Details Date Type Department Care Team (Latest Contact Info) Description 11/01/2011 11:40 AM CDT - 11/01/2011 11:50 AM T Hospital Encounter [facility] at [address] [phone] Toñito Romeo MD [address] [place] [phone] Discharge Disposition: Home or Self Care Social [...] on file documented as of this encounter Discharge Summaries * Diana Pollard RN - 11/01/2011 12:53 PM CDT [facility] Past Medical History of Therapy Hematology/Oncology Service Name: Angela Barker: [id number] B.D.: [birth year] Diagnosis: Acute lymphoblastic leukemia, T-cell type Date of Diagnosis: 06-09-03 Age at Diagnosis: 7 years, 9 months Summary of the disease you had: Leukemia is the most common malignancy of children less than 15 years of age. Leukemia is a cancer of the blood forming organs, including the bone marrow, spleen, and the lymph nodes. When leukemia occurs, the body begins producing a huge number of immature (baby) white cells called lymphoblasts that do not mature and are not able to perform their proper function that is, fighting infections. In addition, these baby white cells interfere with the production of healthy cells: the red cells, white cells, and platelets. Because leukemia cells crowd out healthy cells, children with leukemia oftensee a doctor because they are tired and pale in color. This is because their red blood cell count is low and they are anemic. If their white blood cells are low, they may have an infection or if their platelets are low, they may have easy bruising or bleeding. Some children present with all these symptoms, or just one of them. Special tests are done on the leukemia cells to identify exactly which type of leukemia is involved. Your type was determined to be acute lymphoblastic (lymphocytic) leukemia, with a cell type identified as T-cell. This is a subtype identifying a particular white cell (T-cell) that was predominating and characteristic of the leukemia cells seen. Knowing the cell type is of great assistance in determining and tailoring treatment that will be most appropriate for care. Clinical Presentation: Developed a ???flu-like?? illness 10 days prior to diagnosis. Symptoms improved, but then began having abdominal pain. Went to the health communications specialist where splenomegaly was noted and a CBC was performed that was consistent with leukemia. Diagnostic Work-Up: 06-09-03: Complete blood count (CBC) Results: TUY=910, hemoglobin/hematocrit=10/31, platelets=62; differential showed 80% immatures. 06-09-03: Bone marrow aspiration and biopsy Results: Acute lymphoblastic leukemia with t-cell markers Flow cytometry results: Analysis of 15 cells showed the translocation (2;14) with breakpoints at 2p13 and 14q32. This type of translocation is seen in ALL of T and B-cell type. Past Medical History: None Allergies: None Past Family Medical and Cancer History: Not significant Treatment: Surgery: 07-15-03: Infusaport placed Surgeon: Scot Walker MD 10-08-05: Infusaport removed Surgeon: Scot Walker MD Chemotherapy: Began: 3-1-04 Ended: 06-03-05 Followed protocol: [id number] Vincristine (1.5mg/m2) IV Total amount given: 19.5mg/m2 Asparaginase (10,000u/m2) IM Total amount given: 106,000mg/m2 Cyclophosphamide (1000mg/m2) IV Total amount given: 3000mg/m2 Cytarabine (75mg/m2) IV Total amount given: 450mg/m2 Methotrexate IT Given 9 times Methotrexate (20mg/m2) PO Total amount given: 1400mg/m2 Doxorubicin (40,25mg/m2) IV Total amount given: 235mg/m2 6-MP (75mg/m2) PO Total amount given: 36,750mg/m2 6-TG (60mg/m2) PO Total amount given: 840mg/m2 Prednisone (60mg/m2) Total amount given: 2640mg/m2 Total amount of anthracycline given: 235mg/m2 Radiation: Began: 01-09-04 Ended: 01-17-04 Prophylactic whole brain radiation, received 1260cGy in 7 fractions Radiation oncologist: Jeremi Jordan MD ([facility]) Supportive Care: Bactrim/Dapsone Blood Product Transfusions: Blood type: A negative Received multiple units of packed red blood cells (PRBC) and platelets, all units irradiated and leukocyte reduced. Echocardiograms: 06-13-03: SF=46%, normal echo 10-23-07: SF=29%, normal echo Complications: 11-07-04 & 01-23-05: To the OR for removal of multiple verruca vulgaris (common warts) on the hands and feet documented in this encounter Progress Notes * Toñito Romeo MD - 11/01/2011 2:07 PM CDT Onoc[facility]Up [facility] Form Diagnosis: T-cell, ALL Date of Last therapy: 05/16/2005 Major Complications: none Recommended Surveillance: Echo every 2 years PFT NA Other Dexa scan at entry to LTFU and prn See discharge summary note for details of chemotherapy received. Interval History: Angela continues to do well and is without significant concerns or complaints today. He is doing very well in school. He also plays competitive baseball and does not have exercise intolerance. He is rarely ill. Past Medical History [...] Not on file Other Topics Concern ??? Sleep Concern No 10-6 ??? Stress Concern Yes pressure about getting a's ??? Special Diet No protein, fast food x 3 week, milk ??? Bike Helmet Yes ??? Seat Belt Yes Social History Narrative Lives at home with mom, dad, and sisterSophomore at [employer]- A[employer] No Known Allergies No current outpatient prescriptions on file. Dietary Intake: good Activity Level: excellent Education: Current grade: 10 IEP/504: No Performance/Concerns: none Dental: wears braces, need to work on brushing his teeth ROS: 10 systems tested and all negative Physical Exam: Constitutional: BP 110/70 Pulse 70 Temp 97.8 ??F Resp 16 Ht 1.756 m (5' 9.13 ) Wt 55.9 kg (123 lb 3.8 oz) BMI 18.13 kg/m2 SpO2 98%, Body mass index is 18.13 kg/(m^2). BSA (Calculated): 1.65 General Appearance: alert, no distress and smiling Eyes, Nose, Mouth/Throat: Eyes,Normal Ears: Otoscopic exam: Normal Nose and sinus: Normal Mouth and throat: Normal Neck: Normal Lymphatic: No abnormally enlarged lymph nodes. Respiratory: respiratory effort normal, clear to auscultation, normal breath sounds bilaterally Cardiovascular: normal rate, regular rhythm, normal S1, S2, no murmur Gastrointestinal: abdomen soft, non-tender and no hepatosplenomegaly Genitourinary: Maynor stagin Musculoskeletal: Normal muscle tone. All joints with full range of motion. No deformity or tenderness. Neurologic: Cranial nerves: intact Strength: normal Sensation: intact Gait/cerebellar: normal Performance Score: [place]: 100 - fully active, normal Results: Recent Results (from the past 336 hour(s)) CBC W AUTO DIFFERENTIAL Collection Time 11/01/11 1:45 PM Component Value Range WBC 6.5 4.5-14.5 (x10^9/L) RBC 5.23 4.50-5.30 (x10^12/L) Hgb 14.9 13.0-16.0 (g/dL) HCT 42.5 37.0-49.0 (%) MCV 81.3 78.0-98.0 (fl) MCH 28.5 25.0-35.0 (pg) MCHC 35.1 31.0-37.0 (gm/dL) RDW-CV 12.9 11.5-14.0 (%) MPV 9.9 (*) 6.0-9.5 (fl) Neutro 59 24-66 (%) Lymph 31 22-61 (%) [place] 7 3-15 (%) Eos 1 0-10 (%) Baso 1 0-2 (%) NRBC Auto 0 Hemo Reflex Status Slide Check Pending Plt Ct 237 100-400 (x10^9/L) COMPREHENSIVE METABOLIC PANEL Collection Time 11/01/11 1:45 PM Component Value Range Glucose Random 106 (*) 70-105 (mg/dL) Sodium 140 136-145 (mmol/L) Potassium 5.2 (*) 3.5-5.1 (mmol/L) Chloride 104 98-107 (mmol/L) CO2 27 20-28 (mmol/L) Calcium 9.83 9.08-10.48 (mg/dL) Anion Gap 9 5-20 (mmol/L) BUN 16.1 5.3-18.7 (mg/dL) Creatinine 0.90 0.61-1.07 (mg/dL) eGFR by MDRD eGFR by MDRD AFR AMER Alk Phos 267 100-390 (U/L) ALT/SGPT 10 6-46 (U/L) AST/SGOT 14 3-35 (U/L) Protein Total 7.5 6.3-8.2 (gm/dL) Albumin 4.9 3.3-4.9 (gm/dL) Bili Total 1.3 (*) 0.3-1.2 (mg/dL) TSH Collection Time 11/01/11 1:45 PM Component Value Range TSH 1.53 0.35-4.95 (uIU/mL) T4 TOTAL Collection Time 11/01/11 1:45 PM Component Value Range T4 Total 5.85 4.87-11.7 (ug/mL) SLIDE SCAN HEMATOLOGY Collection Time 11/01/11 1:45 PM Component Value Range Hemo Reflex Status Auto Diff Verified URINALYSIS MICROSCOPIC ONLY Collection Time 11/01/11 1:52 PM Component Value Range RBC UA 0-5 0-5 (# /hpf) WBC UA 0-5 0-5 (# /hpf) Bacteria UA None None, Trace Epithelial Cell UA 0-5 0-5 Mucus Trace None, Trace URINALYSIS ROUTINE AUTO Collection Time 11/01/11 1:52 PM Component Value Range Color UA Yellow Straw, Yellow, Dark Yellow Clarity UA Clear Clear Specific [place] UA 1.025 1.003-1.030 pH UA 6.5 5.0-8.0 Protein UA Negative Negative Blood UA Negative Negative Leukocyte UA Negative Negative Nitrite UA Negative Negative Glucose UA Negative Negative Ketone UA Negative Negative Bili UA Negative Negative Urobilinogen UA 0.2 0.2-1.0 (EU/dL) Dexa Scan: normal bone density for age. Impression: Angela continues to do well without signs of recurrent disease or secondary malignancy. Plan: Follow up in one year Testing: ECHO in 2013 documented in this encounter Miscellaneous Notes * Miscellaneous Scans - Document, Scanned - 11/08/2011 11:15 AM CDT documented in this encounter Plan of Treatment Scheduled Orders Name Type Priority Associated Diagnoses Orde r Schedule DEXA BONE DENSITY APPENDICULAR Imaging Routine 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) For radiant use only for 1 Occurrences starting 11/01/2011 documented as of this encounter Procedures Procedure Name Priority Date/Time Associated Diagnosis Comments URINALYSIS REFLEX TO MICROSCOPIC NO CULTURE [place] 11/01/2011 1:52 PM CDT 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) URINE MICROSCOPIC ONLY Routine 2 1:52 PM CDT 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) ECHO CONSULT - PEDIATRIC Routine 11/01/2011 1:51 PM CDT 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) SLIDE SCAN HEMATOLOGY Routine 11/01/2011 1:45 PM CDT 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) CBC W AUTO DIFFERENTIAL [place] 11/01/2011 1:45 PM CDT 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) COMPREHENSIVE METABOLIC PANEL [place] 11/01/2011 1:45 PM CDT 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) TSH [place] 11/01/2011 1:45 PM CDT 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) T4 TOTAL [place] 11/01/2011 1:45 PM CDT 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) documented in this encounter Results * URINALYSIS ROUTINE AUTO (11/01/2011 1:52 PM CDT) Color UA Yellow Straw, Yellow, Dark Yellow 11/01/2011 2:50 PM CDT [facility] Clarity UA Clear Clear 11/01/2011 2:50 PM CDT [facility] Specific [place] UA 1.025 1.003 - 1.030 11/01/2011 2:50 PM CDT [facility] pH UA 6.5 5.0 - 8.0 11/01/2011 2:50 PM CDT [facility] Protein UA Negative Negative 11/01/2011 2:50 PM CDT [facility] Blood UA Negative Negative 11/01/2011 2:50 PM CDT [facility] Leukocyte UA Negative Negative 11/01/2011 2:50 PM CDT [facility] Nitrite UA Negative Negative 11/01/2011 2:50 PM CDT [facility] Glucose UA Negative Negative 11/01/2011 2:50 PM CDT [facility] Ketone UA Negative Negative 11/01/2011 2:50 PM CDT [facility] Bilirubin UA Negative Negative 11/01/2011 2:50 PM CDT [facility] Urobilinogen UA 0.2 0.2 - 1.0 EU/dL 11/01/2011 2:50 PM CDT [facility] Urine specimen (specimen) URINE SPECIMEN OBTAINED BY CLEAN CATCH PROCEDURE / Unknown 11/01/2011 1:52 PM CDT 11/01/2011 2:00 PM CDT Toñito Romeo MD LAB - URINALYSIS ORD ERABLES Performing Organization Address [facility] Co de Phone Number [facility] [address] [phone] * URINALYSIS MICROSCOPIC ONLY (11/01/2011 1:52 PM CDT) RBC UA 0-5 0 - 5 # /hpf 11/01/2011 3:40 PM CDT [facility] WBC UA 0-5 0 - 5 # /hpf 11/01/2011 3:40 PM CDT [facility] Bacteria UA None None, Trace 11/01/2011 3:40 PM CDT [facility] Epithelial Cell UA 0-5 0 - 5 11/01/2011 3:40 PM CDT [facility] Mucus UA Trace None, Trace 11/01/2011 3:40 PM CDT [facility] Urine specimen (specimen) URINE SPECIMEN OBTAINED BY CLEAN CATCH PROCEDURE / Unknown 11/01/2011 1:52 PM CDT 11/01/2011 2:00 PM CDT Toñito Romeo MD LAB - URINALYSIS ORD ERABLES Performing Organization Address [facility] Co de Phone Number [facility] [address] [place] [phone] * ECHO CONSULT - PEDIATRIC (11/01/2011 1:51 PM CDT) 11/01/2011 1:51 PM CDT Narrative [facility] - 11/01/2011 6:21 PM CDT , Transthoracic Echocardiogram 2D, M-mode, Doppler, and Color Doppler Name: ANGELA PIMENTEL MR #: [id number] Study date: 11/01/2011 Age: 16 years 16 years : 1995 Gender: Male Ht: 69.2 in 69.2 in / 175.8 cm 175.8 cm Wt: 123.2 lb 123.2 lb / 56 kg 56 kg BSA: 1.69 m?? 1.69 m?? HR: BP: / age: GODFREY: Maternal age: REFERRING PHYSICIAN: ??HARISH [facility] SAP BW BI DEVELOPER: ??Brent Fry MD PEDIATRIC ECHO INTERNAL AFFAIRS INVESTIGATOR: ??ELENO Najera Indications: Murmur evaluation. Chemotherapy follow up. Allergies: NKA History: Signs/symptoms include murmur. Procedure: The procedure was performed in the [...] The flow pattern was normal. Pulmonary veins: The pulmonary veins drained normally to the left atrium. Doppler: Doppler flow pattern was normal in the pulmonary vein(s). Right atrium: Size was normal. Left atrium: Size was normal. Atrial septum: No defect or patent foramen ovale was identified. Tricuspid valve: The valve structure was normal. Doppler: The transtricuspid velocity was within the normal range. There was no evidence for tricuspid stenosis. There was trivial regurgitation. Mitral valve: Valve structure was normal. [...] transpulmonic velocity was within the normal range. There was trivial regurgitation. Aortic valve: The valve was trileaflet. Leaflets [...] size. The ascending aorta size was normal. Coronary arteries: The size and course of the left main, proximal left anterior descending, and proximal right coronary arteries were normal. Right coronary artery: Flow was normal. Left main coronary artery: Flow was normal. Left anterior descending: Flow was normal. Extracardiac shunting: No ductal shunt was detected by Doppler. Pericardium: There was no pericardial effusion. The pericardium was normal in appearance. Impressions: - ??Diagnoses: Normal intracardiac anatomy. Prepared and signed by Brent Fry MD Signed 11/01/2011 18:13:42 DOPPLER MEASUREMENTS Tricuspid valve ?? (Reference) Regurg peak zonia ?? 211 cm/s RV-RA peak gradient ?? 18 mmHg Legend: Predicted normals (shown in italics) are given as mean ?? 2 SD Asterisk (*) sarah values outside the specified normal range. System measurement tables MM %FS: 35.5 % Ao Diam: 27.8 mm EDV(Teich): 145 ml EF(Teich): 64.3 % ESV(Teich): 51.7 ml IVSd: 6 mm IVSs: 10.9 mm LA Diam: 26.8 mm LA/Ao: 1 LVIDd: 54.6 mm LVIDs: 35.2 mm LVPWd: 7.4 mm LVPWs: 11.4 mm LVd Mass: 144.2 g LVd Mass (ASE): 126.9 g LVd Mass Ind (ASE): 75.1 g/m2 LVd Mass Index: 85.3 g/m2 LVs Mass: 139.5 g LVs Mass (ASE): 123.1 g LVs Mass Ind (ASE): 72.8 g/m2 LVs Mass Index: 82.5 g/m2 SV(Teich): 93.3 ml Addendum Date: 11/01/2011 6:20:10 PM There is a PFO present. Addendum entered by: Brent Fry MD Procedure Note 11/01/2011 , Transthoracic Echocardiogram 2D, M-mode, Doppler, and Color Doppler Name: ANGELA PIMENTEL MR #: [id number] Study date: 11/01/2011 Age: 16 years 16 years : 1995 Gender: Male Ht: 69.2 in 69.2 in / 175.8 cm 175.8 cm Wt: 123.2 lb 123.2 lb / 56 kg 56 kg BSA: 1.69 m?? 1.69 m?? HR: BP: / age: GODFREY: Maternal age: REFERRING PHYSICIAN: HARISH [facility] SAP BW BI DEVELOPER: Brent Fry MD PEDIATRIC ECHO INTERNAL AFFAIRS INVESTIGATOR: ELENO Najera Indications: Murmur evaluation. Chemotherapy follow up. Allergies: NKA History: Signs/symptoms include murmur. Procedure: The procedure was performed in the [...] The flow pattern was normal. Pulmonary veins: The pulmonary veins drained normally to the left atrium. Doppler: Doppler flow pattern was normal in the pulmonary vein(s). Right atrium: Size was normal. Left atrium: Size was normal. Atrial septum: No defect or patent foramen ovale was identified. Tricuspid valve: The valve structure was normal. Doppler: The transtricuspid velocity was within the normal range. There was no evidence for tricuspid stenosis. There was trivial regurgitation. Mitral valve: Valve structure was normal. [...] transpulmonic velocity was within the normal range. There was trivial regurgitation. Aortic valve: The valve was trileaflet. Leaflets [...] size. The ascending aorta size was normal. Coronary arteries: The size and course of the left main, proximal left anterior descending, and proximal right coronary arteries were normal. Right coronary artery: Flow was normal. Left main coronary artery: Flow was normal. Left anterior descending: Flow was normal. Extracardiac shunting: No ductal shunt was detected by Doppler. Pericardium: There was no pericardial effusion. The pericardium was normal in appearance. Impressions: - Diagnoses: Normal intracardiac anatomy. Prepared and signed by Brent Fry MD Signed 11/01/2011 18:13:42 DOPPLER MEASUREMENTS Tricuspid valve (Reference) Regurg peak zonia 211 cm/s RV-RA peak gradient 18 mmHg Legend: Predicted normals (shown in italics) are given as mean ?? 2 SD Asterisk (*) sarah values outside the specified normal range. System measurement tables MM %FS: 35.5 % Ao Diam: 27.8 mm EDV(Teich): 145 ml EF(Teich): 64.3 % ESV(Teich): 51.7 ml IVSd: 6 mm IVSs: 10.9 mm LA Diam: 26.8 mm LA/Ao: 1 LVIDd: 54.6 mm LVIDs: 35.2 mm LVPWd: 7.4 mm LVPWs: 11.4 mm LVd Mass: 144.2 g LVd Mass (ASE): 126.9 g LVd Mass Ind (ASE): 75.1 g/m2 LVd Mass Index: 85.3 g/m2 LVs Mass: 139.5 g LVs Mass (ASE): 123.1 g LVs Mass Ind (ASE): 72.8 g/m2 LVs Mass Index: 82.5 g/m2 SV(Teich): 93.3 ml Addendum Date: 11/01/2011 6:20:10 PM There is a PFO present. Addendum entered by: Brent Fry MD Toñito Romeo MD ECHO ORDERABLES Performing Organization Address [facility] Co de Phone Number [facility] [address] [place] [address] * SLIDE SCAN HEMATOLOGY (11/01/2011 1:45 PM CDT) [facility] Hematology Reflex Status Auto Diff Verified 11/01/2011 3:15 PM CDT [facility] Blood specimen (specimen) BLOOD SPECIMEN / Unknown 11/01/2011 1:45 PM CDT 11/01/2011 1:54 PM CDT Toñito Romeo MD LAB - HEMATOLOGY ORD ERABLES Performing Organization Address [facility] Co de Phone Number [facility] [address] [place] [phone] * T4 TOTAL (11/01/2011 1:45 PM CDT) [facility] T4 Total 5.85 4.87 - 11.7 ug/mL 11/02/2011 1:20 AM CDT [facility] Blood specimen (specimen) BLOOD SPECIMEN / Unknown 11/01/2011 1:45 PM CDT 11/01/2011 1:53 PM CDT Toñito Romeo MD LAB - CHEMISTRY ORDE RABLES Performing Organization Address [facility] Co de Phone Number [facility] [address] [place] [phone] * TSH (11/01/2011 1:45 PM CDT) TSH 1.53 0.35 - 4.95 uIU/mL 11/02/2011 1:20 AM CDT [facility] Blood specimen (specimen) BLOOD SPECIMEN / Unknown 11/01/2011 1:45 PM CDT 11/01/2011 1:53 PM CDT Toñito Romeo MD LAB - CHEMISTRY [facility] Organization Address City/State/[facility] Co de Phone Number [facility] [address] [place] [address] * (ABNORMAL) COMPREHENSIVE METABOLIC PANEL (11/01/2011 1:45 PM CDT) Glucose 106(H) 70 - 105 mg/dL 11/01/2011 2:51 PM T [facility] Sodium 140 136 - 145 mmol/L 11/01/2011 2:51 PM [facility] Potassium 5.2(H) 3.5 - 5.1 mmol/L 11/01/2011 2:51 PM T [facility] Chloride 104 98 - 107 mmol/L 11/01/2011 2:51 PM T [facility] CO2 27 20 - 28 mmol/L 11/01/2011 2:51 PM T [facility] Calcium 9.83 9.08 - 10.48 mg/dL 11/01/2011 2:51 PM [facility] Anion Gap 9 5 - 20 mmol/L 11/01/2011 2:51 PM T [facility] BUN 16.1 5.3 - 18.7 mg/dL 11/01/2011 2:51 PM T [facility] Creatinine 0.90 0.61 - 1.07 mg/dL 11/01/2011 2:51 PM [facility] eGFR by MDRD ml/min/1.7 3m2 11/01/2011 2:51 PM T [facility] Comment:eGFR calculations ar e not performed for children under 18 years old. eGFR by MDRD ml/min/1.7 3m2 11/01/2011 2:51 PM T [facility] Comment:eGFR calculations ar e not performed for children under 18 years old. Alkaline Phosphatase 267 100 - 390 U/L 11/01/2011 2:51 PM T [facility] ALT 10 6 - 46 U/L 11/01/2011 2:51 PM CDT [facility] AST 14 3 - 35 U/L 11/01/2011 2:51 PM CDT [facility] Protein Total 7.5 6.3 - 8.2 gm/dL 11/01/2011 2:51 PM CDT [facility] Albumin 4.9 3.3 - 4.9 gm/dL 11/01/2011 2:51 PM CDT [facility] Bilirubin Total 1.3(H) 0.3 - 1.2 mg/dL 11/01/2011 2:51 PM CDT [facility] Blood specimen (specimen) BLOOD SPECIMEN / Unknown 11/01/2011 1:45 PM CDT 11/01/2011 1:53 PM CDT Toñito Romeo MD LAB - CHEMISTRY [facility] Organization Address City/State/[facility] Co de Phone Number [facility] [place] [address] * (ABNORMAL) CBC W AUTO DIFFERENTIAL (11/01/2011 1:45 PM CDT) WBC 6.5 4.5 - 14.5 x10^9/L 11/01/2011 2:36 PM CDT [facility] RBC 5.23 4.50 - 5.30 x10^12/L 11/01/2011 2:36 PM CDT [facility] Hemoglobin 14.9 13.0 - 16.0 g/dL 11/01/2011 2:36 PM CDT [facility] Hematocrit 42.5 37.0 - 49.0 % 11/01/2011 2:36 PM CDT [facility] MCV 81.3 78.0 - 98.0 fl 11/01/2011 2:36 PM CDT [facility] MCH 28.5 25.0 - 35.0 pg 11/01/2011 2:36 PM CDT [facility] MCHC 35.1 31.0 - 37.0 gm/dL 11/01/2011 2:36 PM CDT [facility] RDW-CV 12.9 11.5 - 14.0 % 11/01/2011 2:36 PM CDT [facility] MPV 9.9(H) 6.0 - 9.5 fl 11/01/2011 2:36 PM CDT [facility] Neutrophils % 59 24 - 66 % 11/01/2011 2:36 PM CDT [facility] Lymphocytes % 31 22 - 61 % 11/01/2011 2:36 PM CDT [facility] Monocytes % 7 3 - 15 % 11/01/2011 2:36 PM CDT [facility] Eosinophils % 1 0 - 10 % 11/01/2011 2:36 PM CDT [facility] Basophils % 1 0 - 2 % 11/01/2011 2:36 PM CDT [facility] nRBC Auto 0 11/01/2011 2:36 PM CDT [facility] Hematology Reflex Status Slide Check Pending 11/01/2011 2:36 PM CDT [facility] Platelet Count 237 100 - 400 x10^9/L 11/01/2011 2:36 PM CDT [facility] Blood specimen (specimen) BLOOD SPECIMEN / Unknown 11/01/2011 1:45 PM CDT 11/01/2011 1:54 PM CDT Toñito Romeo MD LAB - HEMATOLOGY ORD ERABLES Performing Organization Address City/State/[facility] Co de Phone Number [facility] [address] [place] [phone] documented in this encounter Visit Diagnoses Diagnosis 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) Acute lymphoid leukemia in remission documented in this encounter Care Teams Traffic Enumerator Relationship Specialty Start Date End Date Prosper Charles MD PCP - General Family Medicine 10/04/11 Toñito Romeo MD [address] [place] [address] Radio Repairer Domestic Pediatrics 10/04/11 documented as of this encounter
--- OUTSIDE RECORDS SUMMARY | 2024-04-15 02:50 | XMS_ITS | Encounter Summary ---
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 at [address] [phone] Toñito Romeo MD [address] [place] [address] Discharge Disposition: Home or Self Care [...] Sign Reading Time Taken Comments Blood Pressure 125/80 10/29/2013 1:00 PM CDT Pulse 85 10/29/2013 1:00 PM CDT Temperature 37.1 ??C (98.8 ??F) 10/29/2013 1:00 PM CD T Respiratory Rate 16 10/29/2013 1:00 PM CDT Oxygen Saturation 100% 10/29/2013 1:00 PM CDT Inhaled Oxygen Concentration - - Weight 64.2 kg (141 lb 8.6 oz) 10/29/2013 1:00 P M CDT Height 181.6 cm (5' 11.5 ) 10/29/2013 1:00 PM CD T Body Mass Index 19.47 10/29/2013 1:00 PM CDT Body Mass Index Percentile 22.85% 10/29/2013 1:0 0 PM CDT Growth Chart: [facility] (Boys, 2-2 0 Years) documented in this encounter Progress Notes * Kirstin Cerrato RN - 10/29/2013 5:42 PM CDT Arrived in [facility] with parents for LTFU visit. Looks good, with no c/o. Will be a senior in high school this fall. Dr. Romeo and Eugenio Romeo RUG CLEANER HAND here to see. Orders received for cbc. Cbc drawn from right AC with 25 g butterfly. Tolerated well. Escorted to [facility] for echo. Parents instructed that we will call on Friday with cbc and echo results. RTC in 1 year. 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 Interval History: Angela is doing well and is without significant concerns or complaints today. He was seen by his eye doctor a few months ago for floaters . No significant abnormalities were found.Aside from this he has been well this year. 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 He has no exercise intolerance. Past Medical History Diagnosis Date ??? 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 No current facility-administered medications for this encounter. ROS: 10 systems tested and all negative Physical Exam: Constitutional: BP 125/80 Pulse 85 Temp(Src) 98.8 ??F Resp 16 Ht 1.816 m (5' 11.5 ) Wt 64.2 kg (141 lb 8.6 oz) BMI 19.47 kg/m2 SpO2 100%, Body mass index is 19.47 kg/(m^2). BSA (Calculated): 1.8 General Appearance: alert, no distress and smiling [...] hour(s)) CBC W AUTO DIFFERENTIAL Collection Time 10/29/13 2:06 PM Result Value Range WBC 4.3 (*) 4.5-11.0 x10^9/L RBC 5.22 4.50-5.30 x10^12/L Hgb 15.1 13.0-16.0 gm/dL HCT 43.4 37.0-49.0 % MCV 83.1 78.0-98.0 fl MCH 28.9 25.0-35.0 pg MCHC 34.8 31.0-37.0 gm/dL Plt Ct 215 100-400 x10^9/L RDW-CV 12.5 11.5-14.0 % MPV 10.0 (*) 6.0-9.5 fl Neutro 57.1 31.0-78.0 % Lymph 32.2 13.0-54.0 % [place] 8.9 4.0-13.0 % Eos 0.9 0.0-8.0 % Baso 0.7 Immature Grans 0.2 Neutro Abs 2.44 Lymph Abs 1.38 [place] Abs 0.38 Eosin Abs 0.04 Baso Abs 0.03 Immature Grans Abs 0.01 Echo: normal Impression: Angela continues to do well without signs of recurrent disease or secondary malignancy. 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 HR: BP: / age: GODFREY: Maternal age: ADMINISTRATIVE EXECUTIVE: ??Devora Valente MD PEDIATRIC ECHO BRAND MANAGER: ??Aneta Jones JAG Allergies: NKA History/ Indications: acute [...] ml Procedure Note Unknown, Provider - 10/29/2013 [facility] , Transthoracic Echocardiogram 2D, M-mode, Doppler, and Color Doppler Name: ANGELA PIMENTEL MR #: [id number] Study date: 10/29/2013 Age: 18 years : 1995 Gender: Male Ht: 73 in / 185.5 cm Wt: 143.4 lb / 65.2 kg BSA: 1.87 m?? HR: BP: / age: GODFREY: Maternal age: ADMINISTRATIVE EXECUTIVE: Devora Valente MD PEDIATRIC ECHO BRAND MANAGER: Aneta Jones RDCS Allergies: NKA History/ Indications: acute lymphoid leukemia [...] 85.5 ml Toñito Romeo MD ECHO ORDERABLES [facility] [address] [place] [address] * (ABNORMAL) CBC W AUTO DIFFERENTIAL (10/29/2013 2:06 PM CDT) [facility] WBC 4.3(L) 4.5 - 11.0 x10^9/L 10/29/2013 2:55 PM CDT [facility] RBC 5.22 4.50 - 5.30 x10^12/L 10/29/2013 2:55 PM CDT [facility] Hemoglobin 15.1 13.0 - 16.0 gm/dL 10/29/2013 2:55 PM T [facility] Hematocrit 43.4 37.0 - 49.0 % 10/29/2013 2:55 PM T [facility] MCV 83.1 78.0 - 98.0 fl 10/29/2013 2:55 PM CDT [facility] MCH 28.9 25.0 - 35.0 pg 10/29/2013 2:55 PM CDT [facility] MCHC 34.8 31.0 - 37.0 gm/dL 10/29/2013 2:55 PM T [facility] Platelet Count 215 100 - 400 x10^9/L 10/29/2013 2:55 PM T [facility] RDW-CV 12.5 11.5 - 14.0 % 10/29/2013 2:55 PM [facility] MPV 10.0(H) 6.0 - 9.5 fl 10/29/2013 2:55 PM T [facility] Neutrophils % 57.1 31.0 - 78.0 % 10/29/2013 2:55 PM CDT [facility] Lymphocytes % 32.2 13.0 - 54.0 % 10/29/2013 2:55 PM T [facility] Monocytes % 8.9 4.0 - 13.0 % 10/29/2013 2:55 PM CDT [facility] Eosinophils % 0.9 0.0 - 8.0 % 10/29/2013 2:55 PM CDT [facility] Basophils % 0.7 % 10/29/2013 2:55 PM T [facility] Immature Granulocytes 0.2 % 10/29/2013 2:55 PM CDT [facility] Neutrophil Absolute 2.44 x10^9/L 10/29/2013 2:55 PM CDT [facility] Lymphocytes Absolute 1.38 x10^9/L 10/29/2013 2:55 PM CDT [facility] Monocytes Absolute 0.38 x10^9/L 10/29/2013 2:55 PM CDT [facility] Eosinophils Absolute 0.04 x10^9/L 10/29/2013 2:55 PM CDT [facility] Basophils Absolute 0.03 x10^9/L 10/29/2013 2:55 PM CDT [facility] Immature Granulocytes Absolute 0.01 x10^9/L 10/29/2013 2:55 PM CDT [facility] Blood BLOOD SPECIMEN / Unknown 10/29/2013 2:06 PM CDT 10/29/2013 2:19 PM CDT Toñito Romeo MD LAB - HEMATOLOGY ORD ERABLES Performing Organization Address City/State/[facility] Co de Phone Number [facility] [address] [place] [phone] documented in this encounter Visit Diagnoses Diagnosis 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
--- OUTSIDE RECORDS SUMMARY | 2024-04-15 02:50 | XMS_ITS | Encounter Summary ---
Author Organization [facility] Address [address] [place] [address] Care Team Providers Care Tire Bagger Name Role Phone Prosper Charles MD Primary Care Provider [phone] Toñito Romeo MD Unavailable Reason for Visit * Reason Onset Date Comments Results 10/24/2014 Encounter Details Date Type Department Care Team (Late st Contact Info) Description 10/24/2014 Telephone The [facility] at [address] [address] Diana Pollard, RN Results Social History Tobacco Use Types Packs/Day [...] Telephone Encounter - Diana Pollard RN - 10/24/2014 9:58 AM CDT Let mother know that results of CBC normal and to follow-up in one year. documented in this encounter Plan of Treatment Not on file documented as of this encounter Visit Diagnoses Not on filedocumented in this encounter Care Teams Tire Bagger Relationship Specialty Start Date End Date Prosper Charles MD PCP - General Family Medicine 10/04/11 Toñito Romeo MD [address] [place] [address] Core Cutter Pediatrics 10/04/11 documented as of this encounter
--- OUTSIDE RECORDS SUMMARY | 2024-04-15 02:50 | XMS_ITS | Encounter Summary ---
Author Organization [facility] Address [address] [place] [address] Care Team Providers Care Ceo [place] [employer] Name Role Phone Prosper Charles MD Primary Care Provider [phone] Encounter Details Date Type Department Care Team (Latest Contact Info) Description 05/25/2010 1:52 PM MOVIE MACHINE OPERATOR - 05/25/2010 11:59 PM [facility] Hospital Encounter [facility] at [address] [address] Shruthi Calzada MD [address] [place] [address] Cardiology Discharge Disposition: Home or Self Care Social [...] on filedocumented in this encounter Care Teams [employer] [place] [employer] Relationship Specialty Start Date End Date Prosper Charles MD [address] [place] [address] PCP - General 05/11/09 10/03/11 documented as of this encounter
--- OUTSIDE RECORDS SUMMARY | 2024-04-15 02:50 | XMS_ITS | Encounter Summary ---
Author Organization [facility] Address [address] [place] [address] Care Team Providers Care Subpoena Server Name Role Phone Prosper Charles MD Primary Care Provider [phone] Toñito Romeo MD Unavailable Reason for Visit * (Routine) - Closed Specialty Diagnoses / Procedures Referred By Alberta t Referred To Contact Radiology Diagnoses 204.01 Procedures [id number] Toñito Romeo MD [address] [place] [address] [place] [address] Referral ID Status Reason Start Date Expiration Date Visits Re quested Visits Authorized [id number] Closed 11/01/2011 04/29/2012 1 1 Encounter Details Date Type Department Care Team (Latest Contact Info) Description 11/01/2011 11:51 AM CDT - 11/01/2011 1:49 PM CDT Hospital Encounter [facility] Pediatrics - Radiology [address] [place] [address] Discharge Disposition: Home or Self Care [...] CDT EXAM: Bone densitometry COMPARISON: None TECHNIQUE: Dely A ([id number]) Software version 13.3 [facility] FINDINGS: Referring Physician: Toñito Romeo Patient age: 16 Gender: Male Height: 175 cm Weight: 56.7 kg Indication: Acute leukemia in remission Technical quality: Adequate Total Bone mineral content: 2269.62 g Total Bone mineral density: 1.130 g/cm2 Z-score: 1.0 Procedure Note Delfin Houston - 11/01/2011 EXAM: Bone densitometry COMPARISON: None TECHNIQUE: Dely A ([id number]) Software version 13.3 [facility] FINDINGS: Referring Physician: Toñito [...] Visit Diagnoses Diagnosis Leukemia, acute, in remission (HCC) Acute leukemia of unspecified cell type in remission documented in this encounter Care Teams Subpoena Server Relationship Specialty Start Date End Date Prosper Charles MD PCP - General Family Medicine 10/04/11 Toñito Romeo MD [address] [place] [address] Financial Services Officer Pediatrics 10/04/11 documented as of this encounter
--- OUTSIDE RECORDS SUMMARY | 2024-04-15 02:50 | XMS_ITS | Encounter Summary ---
Author Organization [facility] Address [address] [place] [address] Care Team Providers Care Cordwainer Name Role Phone Prosper Charles MD Primary Care Provider [phone]- [phone] Toñito Romeo MD Unavailable Reason for Visit * Reason Onset Date Comments Question 08/28/2018 Encounter Details Date Type Department Care Team (Late st Contact Info) Description 08/28/2018 Telephone [facility] at [address] [address] Yina Alvarez, RN Question Social History Tobacco Use Types Packs/Day [...] encounter Miscellaneous Notes * Telephone Encounter - Yina Alvarez RN - 08/28/2018 11:51 AM CDT Received call from Yaya's mother w/a question. She states that Yaya is starting a new job and is required to receive another chicken pox vaccine. They are concerned d/t something they read onlinethat it may not be safe to receive d/t his history of cancer. Per Dr. Jackson, instructed mother thatit is safe for Yaya to receive any vaccines needed. documented in this encounter Plan of Treatment Not on file documented as of this encounter Visit Diagnoses Not on filedocumented in this encounter Care Teams Cordwainer Relationship Specialty Start Date End Date Prosper Charles MD PCP - General Family Medicine 10/04/11 Toñito Romeo MD [address] [place] [address] Sales And Service Technician Pediatrics 10/04/11 documented as of this encounter
--- OUTSIDE RECORDS SUMMARY | 2024-04-15 02:50 | XMS_ITS | Encounter Summary ---
Author Organization [facility] Address [address] [place] [address] Care Team Providers Care Police Captain Senior Name Role Phone Prosper Charles MD Primary Care Provider Toñito Romeo MD Unavailable Encounter Details Date Type Department Care Team (Latest Contact Info) Description 09/28/2012 10:13 AM CDT - 09/28/2012 10:52 AM CDT Hospital Encounter The [facility] at [address] [address] Marisa Ferrera MD [address] [place] [phone] Discharge Disposition: Home or Self Care Social [...] Sign Reading Time Taken Comments Blood Pressure 109/69 09/28/2012 10:20 AM CDT Pulse 118 09/28/2012 10:20 AM CDT Temperature 37.1 ??C (98.8 ??F) 09/28/2012 1 0:20 AM CDT Respiratory Rate 16 09/28/2012 10:2 0 AM CDT Oxygen Saturation 100% 09/28/2012 10: 20 AM CDT Inhaled Oxygen Concentration - - Weight 60.1 kg (132 lb 6.4 oz) 09/29/19 13 10:20 AM CDT Height 180.5 cm (5' 11.06 ) 09/28/2012 10:20 AM CDT Body Mass Index 18.43 09/28/2012 10:20 AM CDT Body Mass Index Percentile 17.91% 09/28 10:20 AM CDT Growth Chart: [facility] (Boys, 2-2 0 Years) documented in this encounter Progress Notes * Kristin Cerrato RN - 09/28/2012 2:20 PM CDT Arrived with family for U/S of testicles and labs. Family escorted to radiology. Returned from radiology. Dr. Jackson here to see and lab orders received. Labs drawn from right AC with 25g butterfly. Tolerated well and bandaid applied. U/A obtained and sent. Lab results reviewed with family. Instructed to keep fci follow up appt in October. * Guillermo Jackson MD - 09/28/2012 12:43 PM CDT 17 yo male over 6 years out from completion of therapy for ALL. 2 months of intermittent right testicular pain and swelling. Just told dad last night. Not increasing in size. No known trauma BP 109/69 Pulse 118 Temp 98.8 ??F Resp 16 Wt 60.056 kg (132 lb 6.4 oz) BMI 18.43 kg/m2 Awake and alert. Anxious Lungs clear Heart regular Abdomen soft without organomegaly No rash No obvious testicular swelling. Maynor V. No pain with palpation. U/S testicles normal 1. H/O ALL with testicular pain and reports of swelling: Exam and U/S normal. No concern for testicular relapse. Source of pain unknown. Urinalysis sent. Suggested follow up with PMD and possible urology consult. 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) CBC W AUTO DIFFERENTIAL [place] 09/28/2012 11:54 AM CDT 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) COMPREHENSIVE METABOLIC PANEL [place] 09/28/2012 11:54 AM CDT 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) LDH BLOOD [place] 09/28/2012 11:54 AM CDT 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) DIFFERENTIAL MANUAL Routine 09/28/2012 1 1:54 AM CDT 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) documented in this encounter Results * (ABNORMAL) URINALYSIS ROUTINE AUTO (09/28/2012 12:43 PM CDT) Color UA Yellow Straw, Yellow, Dark Yellow 09/28/2012 2:35 PM CDT [facility] Clarity UA Clear 09/28/2012 2:35 PM CDT [facility] Specific [place] UA 1.026 1.005 - 1.030 09/28/2012 2:35 PM CDT [facility] pH UA 6.0 5.0 - 8.0 09/28/2012 2:35 PM CDT [facility] Protein UA Negative Negative 09/28/2012 2:35 PM CDT [facility] Blood UA Negative Negative 09/28/2012 2:35 PM CDT [facility] Leukocyte UA Negative Negative 09/28/2012 2:35 PM CDT [facility] Nitrite UA Negative Negative 09/28/2012 2:35 PM CDT [facility] Glucose UA Negative Negative 09/28/2012 2:35 PM CDT [facility] Ketone UA Trace(A) Negative 09/28/2012 2:35 PM CDT [facility] Bilirubin UA Negative Negative 09/28/2012 2:35 PM T [facility] Urobilinogen UA 0.2 0.1 - 1.0 EU/dL 09/28/2012 2:35 PM CDT [facility] WBC UA Auto 0-2 0-2, 2-5 #/hpf 09/28/2012 2:35 PM CDT [facility] RBC UA Auto 0-2 0-2, 2-5 #/hpf 09/28/2012 2:35 PM CDT [facility] Epithelial Cell UA Auto 0-2 0-2, 2-5 #/hpf 09/28/2012 2:35 PM CDT [facility] Bacteria UA Auto None seen None seen 09/29/19 13 2:35 PM CDT [facility] Yeast UA Auto None seen None seen 09/28/2012 2:35 PM CDT [facility] Sperm UA Auto Absent 09/28/2012 2:35 PM T [facility] Hyaline Casts UA Auto 5-10(A) 0 - 2 #/lpf 09/28/2012 2:35 PM T [facility] Urine specimen (specimen) URINE SPECIMEN FROM URINARY BLADDER / Unknown 09/28/2012 12:43 PM CDT 09/28/2012 12:46 PM CDT Guillermo Jackson MD LAB - URINALYSIS ORDERABLES Performing Organization Address City/State/[facility] Co de Phone Number [facility] [address] [place] [address] * URINALYSIS MICROSCOPIC ONLY (09/28/2012 12:43 PM CDT) RBC UA 0-2, 2-5 # /hpf 09/28/2012 2:35 PM T [facility] WBC UA 0-2, 2-5 # /hpf 09/28/2012 2:35 PM CDT [facility] Bacteria UA None Seen, Trace 09/28/2012 2:35 PM CDT [facility] Epithelial Cell UA 0-2, 2-5 09/28/2012 2:35 PM CDT [facility] Mucus UA 3+ 09/28/2012 2:35 PM CDT [facility] Urine specimen (specimen) URINE SPECIMEN FROM URINARY BLADDER / Unknown 09/28/2012 12:43 PM CDT 09/28/2012 12:46 PM CDT Guillermo Jackson MD LAB - URINALYSIS ORDERABLES Performing Organization Address [facility] de Phone Number [facility] [address] [place] [phone] * LDH BLOOD (09/28/2012 11:54 AM CDT) LDH 178 140 - 260 U/L 09/28/2012 1:33 PM CDT [facility] Blood specimen (specimen) BLOOD SPECIMEN / Unknown 09/28/2012 11:54 AM CDT 09/28/2012 12:13 PM CDT Guillermo Jackson MD LAB - CHEMISTRY O RDERABLES Performing Organization Address [facility] de Phone Number [facility] [address] [place] [phone] * URIC ACID BLOOD (09/28/2012 11:54 AM CDT) Uric Acid 5.5 2.0 - 5.5 mg/dL 09/28/2012 1:33 PM CDT [facility] Blood specimen (specimen) BLOOD SPECIMEN / Unknown 09/28/2012 11:54 AM CDT 09/28/2012 12:13 PM CDT Guillermo Jackson MD LAB - CHEMISTRY O RDERABLES Performing Organization Address [facility] de Phone Number [facility] [address] [place] [phone] * (ABNORMAL) COMPREHENSIVE METABOLIC PANEL (09/28/2012 11:54 AM CDT) Glucose 108(H) 70 - 105 mg/dL 09/28/2012 1:33 PM CDT [facility] Sodium 140 136 - 145 mmol/L 09/28/2012 1:33 PM [facility] Potassium 3.5 3.5 - 5.1 mmol/L 09/28/2012 1:33 PM [facility] Chloride 106 98 - 107 mmol/L 09/28/2012 1:33 PM [facility] CO2 21 20 - 28 mmol/L 09/28/2012 1:33 PM [facility] Calcium 10.29 9.08 - 10.48 mg/dL 09/28/2012 1:33 PM [facility] Anion Gap 13 5 - 20 mmol/L 09/28/2012 1:33 PM [facility] BUN 13.4 5.3 - 18.7 mg/dL 09/28/2012 1:33 PM [facility] Creatinine 1.01 0.61 - 1.07 mg/dL 09/28/2012 1:33 PM [facility] eGFR by MDRD ml/min/1.7 3m2 09/28/2012 1:33 PM [facility] Comment:eGFR calculations ar e not performed for children under 18 years old. eGFR by MDRD ml/min/1.7 3m2 09/28/2012 1:33 PM [facility] Comment:eGFR calculations ar e not performed for children under 18 years old. Alkaline Phosphatase 187 100 - 390 U/L 09/28/2012 1:33 PM [facility] ALT 10 6 - 46 U/L 09/28/2012 1:33 PM [facility] AST 13 3 - 35 U/L 09/28/2012 1:33 PM [facility] Protein Total 7.7 6.3 - 8.2 gm/dL 09/28/2012 1:33 PM [facility] Albumin 4.7 3.3 - 4.9 gm/dL 09/28/2012 1:33 PM [facility] Bilirubin Total 2.2(H) 0.3 - 1.2 mg/dL 09/28/2012 1:33 PM [facility] Blood specimen (specimen) BLOOD SPECIMEN / Unknown 09/28/2012 11:54 AM CDT 09/28/2012 12:13 PM T Guillermo Jackson MD LAB - CHEMISTRY O RDERABLES [facility] [place] [address] * (ABNORMAL) CBC W AUTO DIFFERENTIAL (09/28/2012 11:54 AM CDT) WBC 7.5 4.5 - 14.5 x10^9/L 09/28/2012 1:16 PM CDT [facility] RBC 5.20 4.50 - 5.30 x10^12/L 09/28/2012 1:16 PM T [facility] Hemoglobin 15.4 13.0 - 16.0 g/dL 09/28/2012 1:16 PM T [facility] Hematocrit 43.1 37.0 - 49.0 % 09/28/2012 1:16 PM T [facility] MCV 82.9 78.0 - 98.0 fl 09/28/2012 1:16 PM T [facility] MCH 29.6 25.0 - 35.0 pg 09/28/2012 1:16 PM T [facility] MCHC 35.7 31.0 - 37.0 gm/dL 09/28/2012 1:16 PM T [facility] Platelet Count 230 100 - 400 x10^9/L 09/28/2012 1:16 PM T [facility] RDW-CV 12.6 11.5 - 14.0 % 09/28/2012 1:16 PM T [facility] MPV 10.4(H) 6.0 - 9.5 fl 09/28/2012 1:16 PM T [facility] Neutrophils % 77(H) 24 - 66 % 09/28/2012 1:16 PM T [facility] Lymphocytes % 17(L) 22 - 61 % 09/28/2012 1:16 PM CDT [facility] Monocytes % 5 3 - 15 % 09/28/2012 1:16 PM CDT [facility] Eosinophils % 1 0 - 10 % 09/28/2012 1:16 PM T [facility] Basophils % 0 % 09/28/2012 1:16 PM T [facility] Immature Granulocytes 0.3 % 09/28/2012 1:16 PM T [facility] Neutrophil Absolute 5.80 x10^9/L 09/28/2012 1:16 PM CDT [facility] Lymphocytes Absolute 1.26 x10^9/L 09/28/2012 1:16 PM CDT [facility] Monocytes Absolute 0.38 x10^9/L 09/28/2012 1:16 PM CDT [facility] Eosinophils Absolute 0.04 x10^9/L 09/28/2012 1:16 PM CDT [facility] Basophils Absolute 0.03 x10^9/L 09/28/2012 1:16 PM T [facility] Immature Granulocytes Absolute 0.02 x10^9/L 09/28/2012 1:16 PM T [facility] Hematology Reflex Status Manual Diff to follow 09/28/2012 1:16 PM T [facility] Blood specimen (specimen) BLOOD SPECIMEN / Unknown 09/28/2012 11:54 AM CDT 09/28/2012 12:13 PM CDT Jane Stevenson PAPER BOX CUTTER-WAREHOUSE LEAD LAB - HEM ATOLOGY ORDERABLES Performing Organization Address City/State/[facility] de Phone Number [facility] [address] [place] [phone] * (ABNORMAL) DIFFERENTIAL MANUAL (09/28/2012 11:54 AM CDT) WBC Auto 7.5 4.5 - 14.5 X(10)9/L 09/28/2012 1:50 PM T [facility] Neutrophil % Manual 78(H) 24 - 66 % 09/28/2012 1:50 PM T [facility] Lymphocytes % Manual 14(L) 22 - 61 % 09/28/2012 1:50 PM T [facility] Monocytes % Manual 5 3 - 15 % 09/28/2012 1:50 PM T [facility] Band % Manual 3 % 09/28/2012 1:50 PM T [facility] Cells Counted 100 # cells 09/28/2012 1:50 PM T [facility] Platelet Estimation Adequate platelets Normal, Adequate platelets 09/28/2012 1:50 PM T [facility] WBC Morph Normal 09/28/2012 1:50 PM T [facility] Anisocytosis Occasional(A ) None 09/28/2012 1:50 PM T [facility] Blood specimen (specimen) BLOOD SPECIMEN / Unknown 09/28/2012 11:54 AM CDT 09/28/2012 12:13 PM CDT Jane Maryse Graham RANDHAWAN-WAREHOUSE LEAD LAB - HEM ATOLOGY ORDERABLES Performing Organization Address City/State/[facility] Co de Phone Number [facility] [address] [place] [phone] documented in this encounter Visit Diagnoses Diagnosis 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
--- OUTSIDE RECORDS SUMMARY | 2024-04-15 02:50 | XMS_ITS | Encounter Summary ---
Author Organization [facility] Address [address] [place] [address] Care Team Providers Care Belt Puncher Name Role Phone Unknown, Notinfile Primary Care Provider Unavail able Encounter Details Date Type Department Care Team (Latest Contact Info) Description 03/30/2022 10:02 AM LUMBER PILER OPERATOR - 03/30/2022 11:59 PM LUMBER PILER OPERATOR Hospital Encounter [address] [address] Acute nasopharyngitis Discharge Disposition: Discharge to home or self care Social History Tobacco Use Types Packs/Day Years Used Date Smoking Tobacco: Never Sex and Gender Information Value Date Recorded Sex Assigned at Not on file Legal Sex Male 11:51 PM LUMBER PILER OPERATOR Gender Identity Not on file Sexual Orientation Not on file documented as of this encounter Discharge Disposition Disposition Code Departure Means Destination Discharge to home or self care documented in this encounter Plan of Treatment Not on file documented as of this encounter Procedures Procedure Name Priority Date/Time Associated Diagnosis Comments INFLUENZA A/B, RSV, AND COVID-19 PCR Routine 03/30/2022 10:02 AM LUMBER PILER OPERATOR Acute nasopharyngitis THROAT CULTURE Routine 03/30/2022 10:02 AM LUMBER PILER OPERATOR Acute nasopharyngitis documented in this encounter Results * Influenza A/B, RSV, and COVID-19 PCR Nasopharyngeal (03/30/2022 10:02 AM LUMBER PILER OPERATOR) COVID-19 RNA Negative Negative [facility] Influenza A RNA Negative Negative [facility] Influenza B RNA Negative Negative [facility] RSV RNA Negative Negative [facility] Comment: Interpretive data: This test is performed using the Cepheid Xpert Xpress CoV-2/Flu/RSV plus assay. This is [...] revised 2021. Nasopharyngeal 03/30/2022 10 :02 AM LUMBER PILER OPERATOR 03/30/2022 1:58 PM LUMBER PILER OPERATOR Narrative [facility] - 03/30/2022 2:44 PM LUMBER PILER OPERATOR Is the Patient experiencing symptoms consistent with COVID?->Yes Date of Symptom Onset->03/29/22 Reason for testing?->Symptomatic Monica Walker NP LAB MICROBIOLOGY - [facility] Final Result Performing Organization Address [facility] [[email or web address]] Co de Phone Number [facility] [id number] [place] [address] * Throat culture Throat (03/30/2022 10:02 AM LUMBER PILER OPERATOR) Report Final Report: No growth of pathogens. [facility] Comment:Testing performed by : [facility], [address] [place]., [address] Throat 03/30/2022 10:0 2 AM LUMBER PILER OPERATOR 03/30/2022 5:08 PM LUMBER PILER OPERATOR Narrative [facility] - 03/31/2022 12:30 PM LUMBER PILER OPERATOR Testing performed by [facility] Microbiology Laboratory ([phone]). Monica Walker NP LAB MICROBIOLOGY - [facility] Final Result [facility] [address] [place] [address] documented in this encounter Visit Diagnoses Diagnosis Acute nasopharyngitis Acute nasopharyngitis (common cold) documented in this encounter Additional Health Concerns Infection Onset Date Last Indicated Resolved Time COVID: Suspected 03/30/2022 03/30/2022 03/30/2022 2:45 PM LUMBER PILER OPERATOR documented as of this encounter Care Teams Belt Puncher Relationship Specialty Start Date End Date Unknown, Notinfile PCP - General 08/26/18 documented as of this encounter
--- OUTSIDE RECORDS SUMMARY | 2024-04-15 02:50 | XMS_ITS | Encounter Summary ---
Author Organization [facility] Address [address] [place] [address] Care Team Providers Care Director Of Business Applications Name Role Phone Prosper Charles MD Primary Care Provider [phone]- [phone] Toñito Romeo MD Unavailable Reason for Visit * Reason Onset Date Comments Results 10/23/2015 Encounter Details Date Type Department Care Team (Late st Contact Info) Description 10/23/2015 Telephone [facility] at [address] [address] Diana Pollard, RN Results Social History Tobacco [...] Telephone Encounter - Diana Pollard RN - 10/23/2015 9:49 AM CDT CBC and echo normal. To follow-up in one year. documented in this encounter Plan of Treatment Not on file documented as of this encounter Visit Diagnoses Not on filedocumented in this encounter Care Teams Director Of Business Applications Relationship Specialty Start Date End Date Prosper Charles MD PCP - General Family Medicine 10/04/11 Toñito Romeo MD [address] [place] [address] Fruit Buying Grader Pediatrics 10/04/11 documented as of this encounter
--- OUTSIDE RECORDS SUMMARY | 2024-04-15 02:50 | XMS_ITS | Encounter Summary ---
Author Organization [facility] Address [address] [place] [address] Care Team Providers Care Objects Conservator Name Role Phone Prosper Charles MD Primary Care Provider [phone] Toñito Romeo MD Unavailable Reason for Visit * Reason Onset Date Comments Results 11/05/2011 Lab, ECHO, and D EXA results WNL and discussed with father. Encounter Details Date Type Department Care Team (Late st Contact Info) Description 11/05/2011 Telephone [facility] at [address] [address] Diana Pollard RN Results (Lab, ECHO, and DEXA results WNL and discussed with father. ) Social History Tobacco Use Types Packs/Day [...] on filedocumented in this encounter Care Teams Objects Conservator Relationship Specialty Start Date End Date Prosper Charles MD PCP - General Family Medicine 10/04/11 Toñito Romeo MD [address] [place] [id number] Administration [facility] 10/04/11 documented as of this encounter
== END 2024-04-08 02:06 | disposition home or self-care (01) ==
PROVIDERS: Emergency Provider Emergency Medicine
DX: R07.89 Other chest pain (principal)
CPT/HCPCS: 36415; 71045; 80053; 82550; 83690; 83735; 84484; 85025; 93005; 99284

== ENCOUNTER 2024-05-05 14:13 | Outpatient (CLI) | payer OTHER, SELFPAY ==
[2024-05-05 19:42] LABS: Iron 189 ug/dL (49-181)
[2024-05-05 20:39] LABS: Alanine Aminotransferase 15 U/L (6-50); Albumin Level 4.6 g/dL (3.5-5.1); Alkaline Phosphatase 50 U/L (38-126); Anion Gap 13 mmol/L (4-12); Aspartate Amino Transferase 25 U/L (17-59); Bilirubin,Total 1.3 mg/dL (0.2-1.3); Blood Urea Nitrogen 22 mg/dL (9-20); Calcium 9.6 mg/dL (8.4-10.2); Carbon Dioxide 29 mmol/L (22-30); Chloride 101 mmol/L (98-107); Estimated Glomerular Filt Rate > 60; Glucose 94 mg/dL (65-110); Magnesium 2.4 mg/dL (1.6-2.3); Potassium 4.6 mmol/L (3.4-5.0); Sodium 143 mmol/L (137-145)
--- OUTSIDE RECORDS SUMMARY | 2024-05-07 01:50 | XMS_ITS | Clinical Summary ---
Author Organization [facility] Address [address] [facility] [place] [address] Care Team Providers Care Typewriter Assembly And Parts Inspector Name Role Phone Prosper Chrales MD Primary Care Provider [phone]- [phone] Toñito Romeo MD Unavailable Source Comments [facility],non-owned Affiliates and Associated Physician Practices is amultiple site organization consisting of ambulatory clinics and hospital sitesin [place], [place], [place] and [place]. This disclosure is being madepursuant to the Care Everywhere program and may not contain all information available regarding this patient. Last updated 18.[facility] [employer] Allergies No known active allergies Medications Be [...] Last Done Comments COVID-19 VACCINE (#1) 2001 HIV SCREENING 09/06/2011 HEPATITIS C SCREENING 09/01/2014 DTAP/TDAP/TD VACCINES (1 - Tdap) 09/06/2015 HEPATITIS B VACCINE (1 of 3 - 19+ 3-dose series) 09/06/2015 PNEUMOCOCCAL VACCINE (1 of 2 - PCV) 09/06/2015 ZOSTER VACCINE (1 of 2) 09/06/2015 INFLUENZA VACCINE (#1) 2023 DEPRESSION SCREENING 04/14/2024 HIB VACCINE Aged Out No longer eligi ble based on patient's age to complete this topic HPV VACCINE Aged Out No longer eligi ble based on patient's age to complete this topic MENINGOCOCCAL (Group B) VACCINE Aged Out No longer eligible based on patient's age to complete this topic MENINGOCOCCAL VACCINE Aged Out No magdalena marixa eligible based on patient's age to complete this topic Care Teams Typewriter Assembly And Parts Inspector Relationship Specialty Start Date End Date Prosper Charles MD PCP - General Family Medicine 10/04/11 Toñito Romeo MD [address] [place] [address] Lead Warehouse Associate Pediatrics 10/04/11
--- OUTSIDE RECORDS SUMMARY | 2024-05-07 01:50 | XMS_ITS | Referral Summary ---
Author Organization [facility] Address [address] [place] [address] Care Team Providers Care Ecology Professor Name Role Phone Prosper Charles MD Primary Care Provider [phone]- [phone] Toñito Romeo MD Unavailable Source Comments [facility],non-owned Affiliates and Associated Physician Practices is amultiple site organization consisting of ambulatory clinics and hospital sitesin [place], [place], [place] and [place]. This disclosure is being madepursuant to the Care Everywhere program and may not contain all information available regarding this patient. Last updated 18.[facility] [employer] Allergies No known active allergies Medications Be [...] of Treatment Not on file Care Teams Ecology Professor Relationship Specialty Start Date End Date Prosper Charles MD PCP - General Family Medicine 10/04/11 Toñito Romeo MD [address] [place] [address] Brush Hand Pediatrics 10/04/11
--- OUTSIDE RECORDS SUMMARY | 2024-05-07 01:50 | XMS_ITS | Patient Health Summary ---
Author Organization [facility] Address [address] [place] [address] Care Team Providers Care Nibbler Operator Name Role Phone Prosper Charles MD Primary Care Provider [phone] Toñito Romeo MD Unavailable Note from [facility],non-owned Affiliates and Associated Physician Practices is amultiple site organization consisting of ambulatory clinics and hospital sitesin [place], [place], [place] and [place]. This disclosure is being madepursuant to the Care Everywhere program and may not contain all information available regarding this patient. Last updated 18.[facility] Allergies No known active allergies Medications Be [...] Alisha Garcia MD - 10/20/[address] [place] [address] Fax Non-Congenital Transthoracic Report Pat.Name: ANGELA GONSALVES Pat.ID: [id number] St.Date: 10/20/2015 Exam Time: 1:55:00 PM Study Type:Non-Congenital TTE Height: 183cm Weight: 68kg BSA: 1.89 m2 Age: 5 1995,20Y Sex: MALE BP: 138/72 Sonogrphr: Citlalli Jesus RDCS Pat. Stat.:Outpatient Room: ECHO ONLY Reason for Study:Evaluate function. Chemo F/U History / Clinical:2-d echo with doppler and color-flow Procedures:2D Non-congenital, Doppler Complete, Color Flow Visit ID: [id number] SUMMARY: Impression: Structurally normal heart. Normal biventricular [...] Garcia MD Toñito Romeo MD ECHO ORDERABLES [facility] [address] [place] [address] * (ABNORMAL) CBC W AUTO DIFFERENTIAL (10/20/2015 1:49 PM CDT) Only the most recent of8 resultswithin the time period is included. WBC 5.1 4.4 - 10.7 x10E9/L 10/20/2015 2:13 PM CDT [facility] WBC Corrected x10E9/L 10/20/2015 2:13 PM CDT [facility] RBC 5.46(H) 3.80 - 5.40 x10E12/L 10/20/2015 2:13 PM CDT [facility] Hemoglobin 15.6 12.0 - 17.6 gm/dL 10/20/2015 2:13 PM CDT [facility] Hematocrit 44.8 35.2 - 51.7 % 10/20/2015 2:13 PM [facility] MCV 82.1 80.7 - 98.3 fl 10/20/2015 2:13 PM [facility] MCH 28.6 26.7 - 34.0 pg 10/20/2015 2:13 PM [facility] MCHC 34.8 30.8 - 35.9 gm/dL 10/20/2015 2:13 PM [facility] Platelet Count 267 153 - 416 x10E9/L 10/20/2015 2:13 PM [facility] RDW-CV 12.7 12.1 - 14.9 % 10/20/2015 2:13 PM [facility] MPV 10.1 9.4 - 12.9 fl 10/20/2015 2:13 PM [facility] Neutrophils % 54.9 44.0 - 73.0 % 10/20/2015 2:13 PM [facility] Lymphocytes % 33.9 20.0 - 43.0 % 10/20/2015 2:13 PM [facility] Monocytes % 8.2 5.0 - 13.0 % 10/20/2015 2:13 PM [facility] Eosinophils % 1.0 0.0 - 6.0 % 10/20/2015 2:13 PM [facility] Basophils % 1.4 0.0 - 2.0 % 10/20/2015 2:13 PM [facility] Immature Granulocytes 0.6 0 - 1 % 10/20/2015 2:13 PM [facility] Neutrophil Absolute 2.80 2.01 - 7.14 x10E9/L 10/20/2015 2:13 PM [facility] Lymphocytes Absolute 1.73 1.07 - 3.94 x10E9/L 10/20/2015 2:13 PM [facility] Monocytes Absolute 0.42 0.26 - 1.07 x10E9/L 10/20/2015 2:13 PM [facility] Eosinophils Absolute 0.05 0 - 0.47 x10E9/L 10/20/2015 2:13 PM [facility] Basophils Absolute 0.07 0 - 0.08 x10E9/L 10/20/2015 2:13 PM CDT [facility] Immature Granulocytes Absolute 0.03 0.00 - 0.06 x10E9/L 10/20/2015 2:13 PM CDT [facility] nRBC Auto 0 /100 WBC 10/20/2015 2:13 PM T [facility] Blood BLOOD SPECIMEN / Unknown 10/20/2015 1:49 PM CDT 10/20/2015 1:52 PM CDT Toñito Romeo MD LAB - HEMATOLOGY ORD ERABLES [facility] [address] [place] [address] * (ABNORMAL) URINALYSIS ROUTINE AUTO (09/28/2012 12:43 PM CDT) Only the most recent of2 resultswithin the time period is included. Color UA Yellow Straw, Yellow, Dark Yellow 09/28/2012 2:35 PM T [facility] Clarity UA Clear 09/28/2012 2:35 PM T [facility] Specific [place] UA 1.026 1.005 - 1.030 09/28/2012 2:35 PM T [facility] pH UA 6.0 5.0 - 8.0 09/28/2012 2:35 PM T [facility] Protein UA Negative Negative 09/28/2012 2:35 PM T [facility] Blood UA Negative Negative 09/28/2012 2:35 PM T [facility] Leukocyte UA Negative Negative 09/28/2012 2:35 PM T [facility] Nitrite UA Negative Negative 09/28/2012 2:35 PM T [facility] Glucose UA Negative Negative 09/28/2012 2:35 PM T [facility] Ketone UA Trace(A) Negative 09/28/2012 2:35 PM T [facility] Bilirubin UA Negative Negative 09/28/2012 2:35 PM T [facility] Urobilinogen UA 0.2 0.1 - 1.0 EU/dL 09/28/2012 2:35 PM T [facility] WBC UA Auto 0-2 0-2, 2-5 #/hpf 09/28/2012 2:35 PM T [facility] RBC UA Auto 0-2 0-2, 2-5 #/hpf 09/28/2012 2:35 PM CDT [facility] Epithelial Cell UA Auto 0-2 0-2, 2-5 #/hpf 09/28/2012 2:35 PM CDT [facility] Bacteria UA Auto None seen None seen 09/29/19 13 2:35 PM CDT [facility] Yeast UA Auto None seen None seen 09/28/2012 2:35 PM CDT [facility] Sperm UA Auto Absent 09/28/2012 2:35 PM CDT [facility] Hyaline Casts UA Auto 5-10(A) 0 - 2 #/lpf 09/28/2012 2:35 PM CDT [facility] Urine specimen (specimen) URINE SPECIMEN FROM URINARY BLADDER / Unknown 09/28/2012 12:43 PM CDT 09/28/2012 12:46 PM CDT Guillermo Jackson MD LAB - URINALYSIS ORDERABLES Performing Organization Address [facility] de Phone Number [facility] [address] [place] [address] * URINALYSIS MICROSCOPIC ONLY (09/28/2012 12:43 PM CDT) Only the most recent of2 resultswithin the time period is included. RBC UA 0-2, 2-5 # /hpf 09/28/2012 2:35 PM CDT [facility] WBC UA 0-2, 2-5 # /hpf 09/28/2012 2:35 PM CDT [facility] Bacteria UA None Seen, Trace 09/28/2012 2:35 PM CDT [facility] Epithelial Cell UA 0-2, 2-5 09/28/2012 2:35 PM CDT [facility] Mucus UA 3+ 09/28/2012 2:35 PM CDT [facility] Urine specimen (specimen) URINE SPECIMEN FROM URINARY BLADDER / Unknown 09/28/2012 12:43 PM CDT 09/28/2012 12:46 PM CDT Guillermo Jackson MD LAB - URINALYSIS ORDERABLES Performing Organization Address [facility] Co de Phone Number [facility] [address] [place] [address] * URIC ACID BLOOD (09/28/2012 11:54 AM CDT) Only the most recent of2 resultswithin the time period is included. Uric Acid 5.5 2.0 - 5.5 mg/dL 09/28/2012 1:33 PM T [facility] Blood specimen (specimen) BLOOD SPECIMEN / Unknown 09/28/2012 11:54 AM CDT 09/28/2012 12:13 PM CDT Guillermo Jackson MD LAB - CHEMISTRY O RDERABLES [facility] [address] [place] [address] * (ABNORMAL) COMPREHENSIVE METABOLIC PANEL (09/28/2012 11:54 AM CDT) Only the most recent of2 resultswithin the time period is included. Glucose 108(H) 70 - 105 mg/dL 09/28/2012 1:33 PM [facility] Sodium 140 136 - 145 [...] MDRD ml/min/1.7 3m2 09/28/2012 1:33 PM CDT [facility] Comment:eGFR calculations ar e not performed for children under 18 years old. Alkaline Phosphatase 187 100 - 390 U/L 09/28/2012 1:33 PM CDT [facility] ALT 10 6 - 46 U/L 09/28/2012 1:33 PM CDT [facility] AST 13 3 - 35 U/L 09/28/2012 1:33 PM T [facility] Protein Total 7.7 6.3 - 8.2 gm/dL 09/28/2012 1:33 PM T [facility] Albumin 4.7 3.3 - 4.9 gm/dL 09/28/2012 1:33 PM T [facility] Bilirubin Total 2.2(H) 0.3 - 1.2 mg/dL 09/28/2012 1:33 PM CDT [facility] Blood specimen (specimen) BLOOD SPECIMEN / Unknown 09/28/2012 11:54 AM CDT 09/28/2012 12:13 PM CDT Guillermo Jackson MD LAB - CHEMISTRY O RDERABLES Performing Organization Address City/[facility] Co de Phone Number [facility] [address] [place] [address] * LDH BLOOD (09/28/2012 11:54 AM CDT) Only the most recent of2 resultswithin the time period is included. Pathologist [facility] LDH 178 140 - 260 U/L 09/28/2012 1:33 PM T [facility] Blood specimen (specimen) BLOOD SPECIMEN / Unknown 09/28/2012 11:54 AM CDT 09/28/2012 12:13 PM CDT Guillermo Jackson MD LAB - CHEMISTRY O RDERABLES Performing Organization Address City/[facility] Co de Phone Number [facility] [address] [place] [address] * (ABNORMAL) DIFFERENTIAL MANUAL (09/28/2012 11:54 AM CDT) Only the most recent of2 resultswithin the time period is included. Pathologist [facility] WBC Auto 7.5 4.5 - 14.5 X(10)9/L 09/28/2012 1:50 PM CDT [facility] Neutrophil % Manual 78(H) 24 - 66 % 09/28/2012 1:50 PM CDT [facility] Lymphocytes % Manual 14(L) 22 - 61 % 09/28/2012 1:50 PM CDT [facility] Monocytes % Manual 5 3 - 15 % 09/28/2012 1:50 PM CDT [facility] Band % Manual 3 % 09/28/2012 1:50 PM CDT [facility] Cells Counted 100 # cells 09/28/2012 1:50 PM CDT [facility] Platelet Estimation Adequate platelets Normal, Adequate platelets 09/28/2012 1:50 PM CDT [facility] WBC Morph Normal 09/28/2012 1:50 PM CDT [facility] Anisocytosis Occasional(A ) None 09/28/2012 1:50 PM CDT [facility] Blood specimen (specimen) BLOOD SPECIMEN / Unknown 09/28/2012 11:54 AM CDT 09/28/2012 12:13 PM CDT Jane Stevenson KNUCKLER-LINUX ARCHITECT LAB - HEM ATOLOGY ORDERABLES Performing Organization Address City/State/[facility] Co de Phone Number [facility] [address] [place] [address] * US SCROTUM WITH DOPPLER (09/28/2012 11:37 [...] Dictated by: Brent Greenfield MD Jane Stevenson KNUCKLER-LINUX ARCHITECT US ORDERA BLES * SLIDE SCAN HEMATOLOGY (11/01/2011 1:45 PM CDT) [facility] Hematology Reflex Status Auto Diff Verified 11/01/2011 3:15 PM CDT [facility] Blood specimen (specimen) BLOOD SPECIMEN / Unknown 11/01/2011 1:45 PM CDT 11/01/2011 1:54 PM CDT Toñito Romeo MD LAB - HEMATOLOGY ORD ERABLES Performing Organization Address City/[facility]/ZIP Co de Phone Number [facility] [place] [address] * TSH (11/01/2011 1:45 PM CDT) [facility] TSH 1.53 0.35 - 4.95 uIU/mL 11/02/2011 1:20 AM CDT [facility] Blood specimen (specimen) BLOOD SPECIMEN / Unknown 11/01/2011 1:45 PM CDT 11/01/2011 1:53 PM CDT Toñito Romeo MD LAB - CHEMISTRY ORDE ESMER Performing Organization Address City/[facility]/ZIP Co de Phone Number [facility] [address] [place] [address] * T4 TOTAL (11/01/2011 1:45 PM CDT) [facility] T4 Total 5.85 4.87 - 11.7 ug/mL 11/02/2011 1:20 AM CDT [facility] Blood specimen (specimen) BLOOD SPECIMEN / Unknown 11/01/2011 1:45 PM CDT 11/01/2011 1:53 PM CDT Toñito Romeo MD LAB - CHEMISTRY CHELY LYMAN [facility] Organization Address City/State/ZIP Co de Phone Number [facility] [place] [address] * DEXA BONE DENSITY AXIAL SKELETON (11/01/2011 12:09 PM CDT) Anatomical Region Laterality Modality Radiographic Sushila ging 11/01/2011 1:20 PM CDT Impressions 11/01/2011 4:39 PM CDT No significant decrease in bone mineral density when compared with age-matched norms.. Dictated by Jose Armando Coulter M.D. Narrative 11/01/2011 4:39 PM CDT EXAM: Bone densitometry COMPARISON: None TECHNIQUE: Mr[employer] A ([id number]) Software version 13.3 [facility] FINDINGS: Referring Physician: Toñito Romeo Patient age: 16 Gender: Male Height: 175 cm Weight: 56.7 kg Indication: Acute leukemia in remission Technical quality: Adequate Total Bone mineral content: 2269.62 g Total Bone mineral density: 1.130 g/cm2 Z-score: 1.0 Procedure Note Delfin Houston A - 11/01/2011 EXAM: Bone densitometry COMPARISON: None TECHNIQUE: [employer] A ([id number]) Software version 13.3 [facility] FINDINGS: Referring Physician: Toñito Romeo Patient age: [...] Transcriptions Document, Scanned - 05/28/2010 8:20 PM BRIAR WOOD SORTER Scanned Document ECHO ORDERABLES * CBC W MANUAL DIFFERENTIAL (11/07/2009 1:20 PM CDT) Only the most recent of2 resultswithin the time period is included. WBC 4.71 4.5 - 14.5 K/cumm [facility] RBC 4.85 4.50 - 5.30 mill/cumm [facility] Hemoglobin 13.8 13.0 - 16.0 gm/dl [facility] Hematocrit 38.9 37.0 - 49.0 % [facility] MCV 80.2 78.0 - 98.0 cu microns [facility] MCH 28.5 25.0 - 35.0 uug [facility] MCHC 35.5 31.0 - 37.0 % [facility] RDW 12.8 % [facility] MPV 9.5 fl [facility] Platelet Count 227 100 - 400 K/cumm [facility] Comment Manual Diff Done [facility] Neutrophils % Manual 59 24 - 66 % [facility] Lymphocytes % Manual 35 22 - 61 % [facility] Monocytes % Manual 4 3 - 15 % [facility] Eosinophils % Manual 1 0 - 10 % [facility] Atypical Lymphocyte % Manual 1 % [facility] RBC Morphology Normal [facility] BLOOD SPECIMEN / Unknown 11/07/2009 1:20 PM CDT 11/07/2009 1:24 PM CDT Evie Maya MD LAB - HEMATOLOGY O RDERABLES [facility] [address] [place] [address] * STREP A SCREEN DIRECT (05/19/2009 12:00 PM BRIAR WOOD SORTER) Strep A Rapid Rapid test NEGATIVE for Group A Beta Strep, culture to follow. Negative [facility] ENTIRE THROAT (SURFACE REGION OF NECK) / Unknown 05/19/2009 12:00 PM BRIAR WOOD SORTER Evie Maya MD LAB - MICROBIOLOGY ORDERABLES Performing Organization Address City/[facility]/ZIP Co de Phone Number [facility] * CULTURE STREP GROUP A (05/19/2009 12:00 PM BRIAR WOOD SORTER) Report [facility] Comment: Final - CULTURE Positive for Group A Beta Streptococci ENTIRE THROAT (SURFACE REGION OF NECK) / Unknown 05/19/2009 12:00 PM BRIAR WOOD SORTER Evie Maya MD LAB - MICROBIOLOGY ORDERABLES [facility] * BONE MARROW BIOPSY (06/10/2005 9:15 AM BRIAR WOOD SORTER) Only the most recent of3 resultswithin the time period is included. Result CASE NUMBER [id number] [facility] PATH REPORT Comment: ORDERING PHYSICIAN ??EVIE [...] ?1 1 Clot Sections ?? Confirmatory (1 Wirght-stained peripheral smear, 2 -stained bone marrow aspirates, [...] and interpreted by the attending (teaching) pathologist. Strategy Specialist ? Leann Levy PATHOLOGIST ?Lazara Sung M.D. ELECTRONICALLY SARKIS LAZARA SUNG MISCELLANEOUS SAMPLES / Unknown 06/10/2005 9:15 AM BRIAR WOOD SORTER 06/10/2005 9:54 AM BRIAR WOOD SORTER Historical Provider LAB - PATHOLOGY/C YTOLOGY ORDERABLES [facility] PATH REPORT Care Teams Nibbler Operator Relationship Specialty Start Date End Date Prosper Charles MD PCP - General Family Medicine 10/04/11 Toñito Romeo MD [address] [place] [address] Manufacturing Area Manager Pediatrics 10/04/11
--- OUTSIDE RECORDS SUMMARY | 2024-05-07 01:50 | XMS_ITS | Referral Summary ---
Author Organization [facility] [address] Address [address] [place] [phone] Care Team Providers Care Veterinary Hospital Attendant Name Role Phone Unknown, Notinfile Primary Care [...] on file Legal Sex Male 11:51 PM IMPORT EXPORT AGENT Gender Identity Not on file Sexual Orientation Not on file Last Filed Vital Signs Vital Sign Reading Time Taken Comments Blood Pressure 128/80 03/30/2022 9:32 AM IMPORT EXPORT AGENT Pulse 99 03/30/2022 9:32 AM IMPORT EXPORT AGENT Temperature 36.9 ??C (98.5 ??F) 03/30/2022 9:32 AM CS T Respiratory Rate 16 03/30/2022 9:32 AM IMPORT EXPORT AGENT Oxygen Saturation 98% 03/30/2022 9:32 AM IMPORT EXPORT AGENT Inhaled Oxygen Concentration - - Weight 84.4 kg (186 lb) 03/30/2022 9:32 AM IMPORT EXPORT AGENT Height 188 cm (6' 2 ) 03/30/2022 9:32 AM IMPORT EXPORT AGENT Body Mass Index 23.88 03/30/2022 9:32 AM IMPORT EXPORT AGENT Plan of Treatment Not on [place] [id number] [facility] CHOICE PLUS [facility] CHOICE PLUS Care Teams Veterinary Hospital Attendant Relationship Specialty Start Date End Date Unknown, Notinfile PCP - General 08/26/18
--- OUTSIDE RECORDS SUMMARY | 2024-05-07 01:50 | XMS_ITS | Clinical Summary ---
Author Organization [facility] [place] [place] [address] Address [address] [place] [phone] Care Team Providers Care Customer Service Security Officer Name Role Phone Unknown, Notinfile Primary Care [...] on file Legal Sex Male 11:51 PM AUTOMATIC FURNACE OPERATOR Gender Identity Not on file Sexual Orientation Not on file Obstetrics History Last Filed Vital Signs Vital Sign Reading Time Taken Comments Blood Pressure 128/80 03/30/2022 9:32 AM AUTOMATIC FURNACE OPERATOR Pulse 99 03/30/2022 9:32 AM AUTOMATIC FURNACE OPERATOR Temperature 36.9 ??C (98.5 ??F) 03/30/2022 9:32 AM CS T Respiratory Rate 16 03/30/2022 9:32 AM AUTOMATIC FURNACE OPERATOR Oxygen Saturation 98% 03/30/2022 9:32 AM AUTOMATIC FURNACE OPERATOR Inhaled Oxygen Concentration - - Weight 84.4 kg (186 lb) 03/30/2022 9:32 AM AUTOMATIC FURNACE OPERATOR Height 188 cm (6' 2 ) 03/30/2022 9:32 AM AUTOMATIC FURNACE OPERATOR Body Mass Index 23.88 03/30/2022 9:32 AM AUTOMATIC FURNACE OPERATOR Plan of Treatment Health Maintenance Due Date [...] patient's age to complete this topic Insurance [facility] PLUS [facility] Care Teams Customer Service Security Officer Relationship Specialty Start Date End Date Unknown, Notinfile PCP - General 08/26/18
== END 2024-05-05 14:14 | disposition home or self-care (01) ==
LOC: ANHGOSHLAB 14:14
PROVIDERS: PCP Nurse Practitioner Family; Visit Provider Nurse Practitioner Family
DX: R25.3 Fasciculation (principal)
CPT/HCPCS: 36415; 80053; 83540; 83735

== ENCOUNTER 2024-10-18 15:29 | Outpatient (CLI) | payer OTHER, SELFPAY ==
--- OUTSIDE RECORDS SUMMARY | 2024-10-18 15:36 | XMS_ITS | Clinical Summary ---
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); New daily persistent headache from Last 3 Months Family History Medical History Relation Name Comments No Known Problems Father Cervical Cancer Mother No Known Problems Sister Relation Name Status Comments Father Alive Mother Alive Sister Alive Social History Tobacco Use Types Packs/Day Years Used Date Smoking Tobacco: Never Smokeless Tobacco: Never Tobacco Cessation:Counseling Given: Not Answered Alcohol Use Standard Drinks/Week Comments Never 0 (1 standard drink = 0.6 oz pur e alcohol) Sex and Gender Information Value Date Recorded Sex Assigned at Not on file Legal Sex Male 3:21 PM CDT Gender Identity Not on file Sexual Orientation Not on file Last Filed Vital Signs Vital Sign Reading Time Taken Comments Blood Pressure 128/89 10/18/2024 2:43 PM CDT Pulse 107 10/18/2024 2:43 PM CDT Temperature 37.2 C (99 F) 10/18/2024 2:43 PM CDT Respiratory Rate 17 10/18/2024 2:43 PM CDT Oxygen Saturation 97% 10/18/2024 2:43 PM CDT Inhaled Oxygen Concentration - - Weight 88.6 kg (195 lb 6.4 oz) 10/18/2024 2:43 P M CDT Height 188 cm (6' 2) 10/18/2024 2:43 PM CDT Body Mass Index 25.09 10/18/2024 2:43 PM CDT Plan of Treatment Upcoming Encounters Date Type Department Care Team (Late st Contact Info) Description 11/01/2024 4:35 PM CDT Telephone Check Up [facility] Oncology and Hematology - [place] [address] [address] [facility] [address] [place] [address] Arthur Bowling MD [address] [facility] [address] [place] [address] Health Maintenance Due Date Last Done Comments DTAP/TDAP/TD VACCINES (1 - Tdap) 09/06/2015 HEPATITIS B VACCINES (1 of 3 - 19+ 3-dose series) 09/06/2015 CERVICAL CANCER SCREENING 2017 HPV/Cotest (21-29) 2017 PAP SMEAR 2017 Preventative Visit- Commercial 04/14/2024 INFLUENZA VACCINE (#1) 2024 HPV VACCINES Aged Out No longer eligi ble based on patient's age to complete this topic Insurance [facility] PLUS
--- OUTSIDE RECORDS SUMMARY | 2024-10-18 15:36 | XMS_ITS | Encounter Summary ---
Author Organization [facility] Address [address] [place] [address] Care Team Providers Care Instant Potato Processing Supervisor Name Role Phone Unavailable Primary Care Provider Unavailabl e Reason for Referral * CT Scan (Urgent) - Open Specialty Diagnoses / Procedures Referred By Alberta campos Referred To Contact Diagnoses New daily persistent headache Procedures CT HEAD W CONTRAST Arthur Bowling MD [address] [place] [phone] Phone: tel: fax: Referral ID Status Reason Start Date Expiration Date Visits Re quested Visits Authorized [id number] Open 10/18/2024 11/18/2025 1 1 * Echocardiography (Routine) - Open Specialty Diagnoses / Procedures Referred By Alberta campos Referred To Contact Diagnoses Acute lymphoblastic leukemia (ALL) in remission ([facility]) Procedures ECHO COMPLETE - CONTRAST AND STRAIN IF INDICATED ECHO COMPLETE - CONTRAST AND STRAIN IF INDICATED OK ECHO TTHRC R-T 2D W/WOM-MODE COMPL SPEC&COLR D OK MYOCRD STRAIN IMG SPECKLE TRCK ASSMT MYOCRD [facility] [place] TTE W OR WO FOL WCON,DOPPLER Arthur Bowling MD [address] [place] [phone] Phone: tel: fax: Referral ID Status Reason Start Date Expiration Date Visits Re quested Visits Authorized [id number] Open 10/18/2024 11/18/2025 1 1 Encounter Details Date Type Department Care Team (Late st Contact Info) Description 10/18/2024 3:00 PM CDT Office Visit [facility] Oncology and Hematology [facility] [address] [place] [address] Arthur Bowling MD [address] [facility] [address] [address] [place] [address] 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); New daily persistent headache Social History Tobacco Use Types Packs/Day Years [...] Mass Index 25.09 10/18/2024 2:43 PM CDT documented in this encounter Plan of Treatment Upcoming Encounters Date Type Department Care Team (Late st Contact Info) Description 11/01/2024 4:35 PM CDT Telephone Check Up [facility] Oncology and Hematology Ab [address] [place] [address] Arthur Bowling MD [address] [facility] [address] [address] [place] [address] Scheduled Orders Name Type Priority Associated Diagnoses Orde r Schedule CBC WITH DIFFERENTIAL Lab Stat Acute lymphoblastic leukemia (ALL) in remission ([facility]) Expected: 10/18/2024, Expires: 10/18/2025 COMPREHENSIVE METABOLIC PANEL Lab Stat Acute lymphoblastic leukemia (ALL) in remission ([facility]) Expected: 10/18/2024, Expires: 10/18/2025 TSH Lab Routine Acute lymphoblastic leukemia (ALL) in remission ([facility]) Expected: 10/18/2024, Expires: 10/18/2025 ECHO COMPLETE - CONTRAST AND STRAIN IF INDICATED Echocardiogram Routine Acute lymphoblastic leukemia (ALL) in remission ([facility]) 1 Occurrences starting 10/18/2024 until 12/19/2025 CT HEAD W CONTRAST Imaging Stat New daily persistent headache Expected: 10/19/2024, Expires: 10/18/2025 documented as of this encounter Visit Diagnoses Diagnosis Acute lymphoblastic leukemia (ALL) in remission ([facility])- Primary New daily persistent headache documented in this encounter
--- OUTSIDE RECORDS SUMMARY | 2024-10-18 15:37 | XMS_ITS | Referral Summary ---
Author Organization [facility] Address [address] [place] [phone] Care Team Providers Care Beauty Operator Apprentice Name Role Phone Unknown, Notinfile Primary Care [...] on file Legal Sex Male 11:51 PM SANITARY LANDFILL OPERATOR Gender Identity Not on file Sexual Orientation Not on file Last Filed Vital Signs Vital Sign Reading Time Taken Comments Blood Pressure 128/80 03/30/2022 9:32 AM SANITARY LANDFILL OPERATOR Pulse 99 03/30/2022 9:32 AM SANITARY LANDFILL OPERATOR Temperature 36.9 C (98.5 F) 03/30/2022 9:32 AM SANITARY LANDFILL OPERATOR Respiratory Rate 16 03/30/2022 9:32 AM SANITARY LANDFILL OPERATOR Oxygen Saturation 98% 03/30/2022 9:32 AM SANITARY LANDFILL OPERATOR Inhaled Oxygen Concentration - - Weight 84.4 kg (186 lb) 03/30/2022 9:32 AM SANITARY LANDFILL OPERATOR Height 188 cm (6' 2) 03/30/2022 9:32 AM SANITARY LANDFILL OPERATOR Body Mass Index 23.88 03/30/2022 9:32 AM SANITARY LANDFILL OPERATOR Plan of Treatment Not on file Insurance [facility] PLUS [facility] PL[facility] Care Teams Beauty Operator Apprentice Relationship Specialty Start Date End Date Unknown, Notinfile PCP - General 08/26/18
--- OUTSIDE RECORDS SUMMARY | 2024-10-18 15:37 | XMS_ITS | Clinical Summary ---
Author Organization [facility] Address [address] [place] [phone] Care Team Providers Care Warp Coiler Name Role Phone Unknown, Notinfile Primary Care [...] on file Legal Sex Male 11:51 PM PALLETIZER Gender Identity Not on file Sexual Orientation Not on file Obstetrics History Last Filed Vital Signs Vital Sign Reading Time Taken Comments Blood Pressure 128/80 03/30/2022 9:32 AM PALLETIZER Pulse 99 03/30/2022 9:32 AM PALLETIZER Temperature 36.9 C (98.5 F) 03/30/2022 9:32 AM PALLETIZER Respiratory Rate 16 03/30/2022 9:32 AM PALLETIZER Oxygen Saturation 98% 03/30/2022 9:32 AM PALLETIZER Inhaled Oxygen Concentration - - Weight 84.4 kg (186 lb) 03/30/2022 9:32 AM PALLETIZER Height 188 cm (6' 2) 03/30/2022 9:32 AM PALLETIZER Body Mass Index 23.88 03/30/2022 9:32 AM PALLETIZER Plan of Treatment Health Maintenance Due Date Last Done Comments Depression Screening 1996 Hepatitis C Screening 1996 DTaP/Tdap/Td Vaccine (1 - Tdap) 09/06/2007 Varicella Vaccines (1 of 2 - 13+ 2-dose series) 2009 Hepatitis B Screening 2014 Regular Well Visit/Exam 18-64 2014 Pneumococcal vaccine <65 (1 of 2 - PCV) 09/06/2015 Zoster Vaccine (1 of 2) 09/06/2015 Covid-19 Vaccine (4 - 2023-2 5 season) 2023 01/27/2021, 05/26/2020, 05/08/2020 Influenza Vaccine (#1) 2024 , 01/17/2021 HPV Vaccines Aged Out No longer eligi ble based on patient's age to complete [place] [id number] [facility] [place] [id number] [facility] [employer] Care Teams Warp Coiler Relationship Specialty Start Date End Date Unknown, Notinfile PCP - General 08/26/18
--- OUTSIDE RECORDS SUMMARY | 2024-10-18 15:37 | XMS_ITS | Clinical Summary ---
Author Organization [facility] Address [address] [facility] [place] [address] Care Team Providers Care Water Taxi Boat Mate Name Role Phone Prosper Charles MD Primary Care Provider [phone] Toñito Romeo MD Unavailable Source Comments [facility],non-owned Affiliates and Associated Physician Practices is amultiple site organization consisting of ambulatory clinics and hospital sitesin [place], [place], [place] and [place]. This disclosure is being madepursuant to the Care Everywhere program and may not contain all information available regarding this patient. Last updated 18.[facility] [employer] cell Storage Allergies No known active allergies Medications * Be aware that medications may not be up to date on this document. Alwaysverify current medications with the patient. No known medications Active Problems Patient Care Coordination No te Formatting of this note migh t be different from the original. Echo every 2 years Last echo: 10-29-13 Due 2016 Scheduled: 10-20-15 Dexa Last dexa: 11-01-11 Due: [...] at Not on file Legal Sex Male 5:42 AM EMERGENCY ROOM TECH Gender Identity Not on file Sexual Orientation Not on file Last Filed Vital Signs Vital Sign Reading Time Taken Comments Blood Pressure 136/80 10/20/2015 3:00 PM CDT Pulse 109 10/20/2015 12:00 PM CDT Temperature 36.8 C (98.3 F) 10/20/2015 12:00 PM CDT Respiratory Rate 12 10/20/2015 12:00 PM CDT Oxygen Saturation 99% 10/20/2015 12:00 PM CDT Inhaled Oxygen Concentration - - Weight 67.6 kg (149 lb 0.5 oz) 10/20/2015 12:00 PM CDT Height 182.9 cm (6') 10/20/2015 12:00 PM CDT Body Mass Index 20.21 10/20/2015 12:00 PM CDT Plan of Treatment Health Maintenance Due Date Last Done Comments HIV SCREENING 09/06/2011 HEPATITIS C SCREENING 09/01/2014 DTAP/TDAP/TD VACCINES (1 - Tdap) 09/06/2015 HEPATITIS B VACCINE (1 of 3 - 19+ 3-dose series) 09/06/2015 COVID-19 VACCINE ( - 2023-2 5 season) 2023 DEPRESSION SCREENING 04/14/2024 INFLUENZA VACCINE (Season Ended) 2024 ZOSTER VACCINE (1 of 2) 2046 HIB VACCINE Aged Out No longer eligi ble based on patient's age to complete this topic HPV VACCINE Aged Out No longer eligi ble based on patient's age to complete this topic MENINGOCOCCAL (Group B) VACC INE SHARED DECISION-MAKING Aged Out No longer eligibl e based on patient's age to complete this topic MENINGOCOCCAL GROUPS A/C/Y/W VACCINE Aged Out No longer eligible b ased on patient's age to complete this topic PNEUMOCOCCAL VACCINE Aged Out No long er eligible based on patient's age to complete this topic Insurance [facility] [id number] [place] [id number] [facility] Care Teams Water Taxi Boat Mate Relationship Specialty Start Date End Date Prosper Charles MD PCP - General Family Medicine 10/04/11 Toñito Romeo MD [address] [place] [address] Tractor Operator Laser Leveling Pediatrics 10/04/11
[2024-10-18 15:50] LABS: Hematocrit 47.6 % (42.0-52.0); Hemoglobin 15.9 g/dL (14.0-18.0); Immature Granulocyte Percent A 0.1 % (0-0.5); Lymphocytes Absolute Auto 1.52 K/mm3 (0.9-3.2); Mean Corpuscular HGB Conc 33.4 g/dl (32-36); Mean Corpuscular Hemoglobin 28.5 pg (26-34); Mean Corpuscular Volume 85.5 fl (80-100); Nucleated Red Blood Cells Absolute Auto 0.000 K/mm3 (0.0-0.012); Nucleated Red Blood Cells Perc 0.0 % (0.0-0.2); Platelet Count Result 258 k/mm3 (150-375); Red Blood Count 5.57 M/mm3 (4.6-6.20); White Blood Count 7.4 K/mm3 (4.5-10.0)
[2024-10-18 17:09] LABS: Alanine Aminotransferase 17 U/L (6-50); Albumin Level 4.9 g/dL (3.5-5.1); Alkaline Phosphatase 46 U/L (38-126); Anion Gap 10 mmol/L (4-12); Aspartate Amino Transferase 51 U/L (17-59); Bilirubin,Total 0.8 mg/dL (0.2-1.3); Blood Urea Nitrogen 17 mg/dL (9-20); Calcium 10.0 mg/dL (8.4-10.2); Carbon Dioxide 28 mmol/L (22-30); Chloride 101 mmol/L (98-107); Estimated Glomerular Filt Rate > 60; Glucose 115 mg/dL (65-110); Potassium 4.0 mmol/L (3.4-5.0); Sodium 139 mmol/L (137-145); Total Protein 8.4 g/dL (6.3-8.2)
[2024-10-18 17:38] LABS: Thyroid Stimulating Hormone 1.710 uIU/mL (0.465-4.680)
== END 2024-10-18 15:30 | disposition home or self-care (01) ==
PROVIDERS: PCP Nurse Practitioner Family; Visit Provider Internal Medicine Hematology & Oncology
DX: C91.01 Acute lymphoblastic leukemia, in remission (principal)
CPT/HCPCS: 36415; 70470; 80053; 84443; 85025; Q9967

== ENCOUNTER 2024-10-18 16:11 | Outpatient (CLI) | payer OTHER, SELFPAY ==
--- NOTE | ~2024-10-18 | CT_ITS ---
History: No daily persistent headache PROCEDURE: CT head without contrast. COMPARISON: None TECHNIQUE: Axial imaging of the head performed from the skull base to the vertex both prior to and following the administration of IV contrast. Sagittal and coronal reformations obtained. DLP: 1210 mGy-cm FINDINGS: The ventricles are normal in size, shape and position. There is no mass, mass effect or midline shift. No abnormal contrast enhancement is appreciated. There is no abnormal extra-axial fluid collection or intracranial hemorrhage. Visualized paranasal sinuses are clear. The mastoid air cells are well aerated. No acute displaced fractures within the overlying cranium. Impression: No acute intracranial hemorrhage or suspicious mass effect. No abnormal contrast enhancement. If clinical suspicion persists, cross-sectional imaging with noncontrast enhanced MRI is recommended for further evaluation. Reviewed, dictated and finalized at location A. Impression: No acute intracranial hemorrhage or suspicious mass effect. No abnormal contrast enhancement. If clinical suspicion persists, cross-sectional imaging with noncontrast enhanc ed MRI is recommended for further evaluation.
--- OUTSIDE RECORDS SUMMARY | 2024-10-18 16:15 | XMS_ITS | Encounter Summary ---
Author Organization [facility] Address [address] [place] [address] Care Team Providers Care Training Mgr Name Role Phone Unavailable Primary Care Provider Unavailabl e Reason for Referral * CT Scan (Urgent) - Open Specialty Diagnoses / Procedures Referred By Alberta campos Referred To Contact Diagnoses New daily persistent headache Procedures CT HEAD W CONTRAST Arthur Bowling MD [address] [employer] [address] [place] [phone] Phone: tel: fax: Referral ID Status Reason Start Date Expiration Date Visits Re quested Visits Authorized [id number] Open 10/18/2024 11/18/2025 1 1 * Echocardiography (Routine) - Open Specialty Diagnoses / Procedures Referred By Alberta campos Referred To Contact Diagnoses Acute lymphoblastic leukemia (ALL) in remission ([facility]) Procedures ECHO COMPLETE - CONTRAST AND STRAIN IF INDICATED ECHO COMPLETE - CONTRAST AND STRAIN IF INDICATED MS ECHO TTHRC R-T 2D W/WOM-MODE COMPL SPEC&COLR D MS MYOCRD STRAIN IMG SPECKLE TRCK ASSMT MYOCRD [facility] MS TTE W OR WO FOL WCON,DOPPLER Arthur Bowling MD [address] [employer] [address] [place] [phone] Phone: tel: fax: Referral ID Status Reason Start Date Expiration Date Visits Re quested Visits Authorized [id number] Open 10/18/2024 11/18/2025 1 1 Encounter Details Date Type Department Care Team (Late st Contact Info) Description 10/18/2024 3:00 PM CDT Office Visit [facility] Oncology and Hematology [facility] [address] [place] [address] Arthur Bowling MD [address] [facility] [address] [place] [address] Acute lymphoblastic leukemia (ALL) in [...] 11/01/2024 4:35 PM CDT Telephone Check Up [facility] Oncology and Hematology Ab [address] [place] [address] Arthur Bowling MD [address] [facility] [address] [place] [address] Scheduled Orders Name Type Priority Associated Diagnoses Orde r Schedule CBC WITH DIFFERENTIAL Lab Stat Acute lymphoblastic leukemia (ALL) in remission ([facility]) Expected: 10/18/2024, Expires: 10/18/2025 COMPREHENSIVE METABOLIC PANEL Lab Stat Acute lymphoblastic leukemia (ALL) in remission ([facility]) Expected: 10/18/2024, Expires: 10/18/2025 TSH Lab Routine Acute lymphoblastic leukemia (ALL) in remission ([facility]) Expected: 10/18/2024, Expires: 10/18/2025 ECHO COMPLETE - CONTRAST AND STRAIN IF INDICATED Echocardiogram Routine Acute lymphoblastic leukemia (ALL) in remission ([facility]) 1 Occurrences starting 10/18/2024 until 12/19/2025 CT HEAD W CONTRAST Imaging Stat New daily persistent headache Expected: 10/19/2024, Expires: 10/18/2025 documented as of this encounter Visit Diagnoses Diagnosis Acute lymphoblastic leukemia (ALL) in remission ([facility])- Primary New daily persistent headache documented in this encounter
--- OUTSIDE RECORDS SUMMARY | 2024-10-18 16:15 | XMS_ITS | Clinical Summary ---
Author Organization [facility] Address [address] [place] [address] Care Team Providers Care Oracle Dba Name Role Phone Prosper Charles MD Primary Care Provider [phone]- [phone] Toñito Romeo MD Unavailable Source Comments [facility],non-owned Affiliates and Associated Physician Practices is amultiple site organization consisting of ambulatory clinics and hospital sitesin [place], [place], [place] and [place]. This disclosure is being madepursuant to the Care Everywhere program and may not contain all information available regarding this patient. Last updated 18.[facility] [employer] Allergies No known active allergies Medications * [...] on file Legal Sex Male 5:42 AM PHYSICAL TRAINER Gender Identity Not on file Sexual Orientation [...] patient's age to complete this topic Insurance [facility] [id number] [place] [id number] [facility] Care Teams Oracle Dba Relationship Specialty Start Date End Date Prosper Charles MD PCP - General Family Medicine 10/04/11 Toñito Romeo MD [address] [place] [address] Program Director/Traffic Director Pediatrics 10/04/11
--- OUTSIDE RECORDS SUMMARY | 2024-10-18 16:15 | XMS_ITS | Referral Summary ---
Author Organization [facility] Address [address] [place] [phone] Care Team Providers Care General Education Instructor Name Role Phone Unknown, Notinfile Primary Care [...] on file Legal Sex Male 11:51 PM HEALTH CARE ATTORNEY Gender Identity Not on file Sexual Orientation Not on file Last Filed Vital Signs Vital Sign Reading Time Taken Comments Blood Pressure 128/80 03/30/2022 9:32 AM HEALTH CARE ATTORNEY Pulse 99 03/30/2022 9:32 AM HEALTH CARE ATTORNEY Temperature 36.9 C (98.5 F) 03/30/2022 9:32 AM HEALTH CARE ATTORNEY Respiratory Rate 16 03/30/2022 9:32 AM HEALTH CARE ATTORNEY Oxygen Saturation 98% 03/30/2022 9:32 AM HEALTH CARE ATTORNEY Inhaled Oxygen Concentration - - Weight 84.4 kg (186 lb) 03/30/2022 9:32 AM HEALTH CARE ATTORNEY Height 188 cm (6' 2) 03/30/2022 9:32 AM HEALTH CARE ATTORNEY Body Mass Index 23.88 03/30/2022 9:32 AM HEALTH CARE ATTORNEY Plan of Treatment Not on file Insurance [facility] CHOICE PLUS [facility] CHOICE PLUS Care Teams General Education Instructor Relationship Specialty Start Date End Date Unknown, Notinfile PCP - General 08/26/18
--- OUTSIDE RECORDS SUMMARY | 2024-10-18 16:15 | XMS_ITS | Clinical Summary ---
Author Organization [facility] Address [address] [place] [phone] Care Team Providers Care Iv Technician Name Role Phone Unknown, Notinfile Primary Care [...] on file Legal Sex Male 11:51 PM CLINICAL SERVICES CONSULTANT Gender Identity Not on file Sexual Orientation Not on file Obstetrics History Last Filed Vital Signs Vital Sign Reading Time Taken Comments Blood Pressure 128/80 03/30/2022 9:32 AM CLINICAL SERVICES CONSULTANT Pulse 99 03/30/2022 9:32 AM CLINICAL SERVICES CONSULTANT Temperature 36.9 C (98.5 F) 03/30/2022 9:32 AM CLINICAL SERVICES CONSULTANT Respiratory Rate 16 03/30/2022 9:32 AM CLINICAL SERVICES CONSULTANT Oxygen Saturation 98% 03/30/2022 9:32 AM CLINICAL SERVICES CONSULTANT Inhaled Oxygen Concentration - - Weight 84.4 kg (186 lb) 03/30/2022 9:32 AM CLINICAL SERVICES CONSULTANT Height 188 cm (6' 2) 03/30/2022 9:32 AM CLINICAL SERVICES CONSULTANT Body Mass Index 23.88 03/30/2022 9:32 AM CLINICAL SERVICES CONSULTANT Plan of Treatment Health Maintenance Due Date [...] to complete [place] [id number] [facility] [place] [id number] [facility] CHOICE PLUS Care Teams Iv Technician Relationship Specialty Start Date End Date Unknown, Notinfile PCP - General 08/26/18
--- OUTSIDE RECORDS SUMMARY | 2024-10-18 16:15 | XMS_ITS | Clinical Summary ---
Author Organization [facility] Address [address] [place] [address] Care Team Providers Care Green Chain Operator Name Role Phone Unavailable Primary Care Provider Unavailabl e Allergies No known active allergies Medications No known medications Active Problems No known active problems Encounters Date Type Department Care Team Description 10/18/2024 3:00 PM CDT Office Visit [facility] Oncology and Hematology - [place] [address] [place] [address] Arthur Bowling MD Acute lymphoblastic [...] 11/01/2024 4:35 PM CDT Telephone Check Up [facility] Oncology and Hematology - [place] [address] [facility] [facility] [address] [place] [address] Arthur Bowling MD [address] [facility] [address] [place] [address] Health Maintenance Due Date Last Done Comments DTAP/TDAP/TD VACCINES (1 - Tdap) 09/06/2015 HEPATITIS B VACCINES (1 of 3 - 19+ 3-dose series) 09/06/2015 CERVICAL CANCER SCREENING 2017 HPV/Cotest (21-29) 2017 PAP SMEAR 2017 Preventative Visit- Commercial 04/14/2024 INFLUENZA VACCINE (#1) 2024 HPV VACCINES Aged Out No longer eligi ble based on patient's age to complete this topic Insurance [facility] PLUS
== END 2024-10-18 16:12 | disposition home or self-care (01) ==
PROVIDERS: PCP Nurse Practitioner Family; Visit Provider Internal Medicine Hematology & Oncology
DX: G44.52 New daily persistent headache (NDPH) (principal)
CPT/HCPCS: 70470; Q9967

== ENCOUNTER 2024-10-28 08:34 | Outpatient (CLI) | payer OTHER, SELFPAY ==
--- NOTE | 2024-10-28 | ECHO_ITS ---
Patient Info Name: Yaya Gonsalves Age: 29 years : 1995 Gender: Male Ht: 74 in Wt: 195 lbs BSA: 2.15 m2 HR: 72 bpm BP: 136 / 90 mmHg Technical Quality: Good Exam Date: 10/28/2024 8:57 AM Patient Status: O Admit Date: 10/28/2024 Exam Type: CA echo doppler color flow Complete two-dimensional, color flow and Doppler transthoracic echocardiogram is performed. Strain analysis performed. Supervisor Laundry: Mary Anne Alvarez Attending Provider: Arthur Bowling MD Summary 1. Complete two-dimensional, color flow and Doppler transthoracic echocardiogram is performed. 2. The left ventricle is normal In size and systolic function. The left ventricular ejection fraction is visually estimated to be 50-55%. There are no regional wall motion abnormalities. There is normal diastolic function. The global strain is mildly reduced at -16%. 3. The right ventricle is normal in size and systolic function. 4. No significant valvular abnormalities. Left Ventricle The left ventricle is normal In size and systolic function. The left ventricular ejection fraction is visually estimated to be 50-55%. There are no regional wall motion abnormalities. There is normal diastolic function. The global strain is mildly reduced at -16%. Right Ventricle The right ventricle is normal in size and systolic function. Left Atria The left atrium is normal size. Right Atria The right atrium is normal size. Atrial Septum The atrial septum is not well visualized. Aortic Valve The aortic valve is normal. Pulmonic Valve The pulmonic valve is normal. There is trace pulmonic valve regurgitation. Mitral Valve The mitral valve is normal. Tricuspid Valve The tricuspid valve is normal. Pericardium/Pleural Pericardium is normal in appearance with no evidence for significant pericardial effusion. Inferior Vena Cava Normal inferior vena cava with >50% collapse upon inspiration consistent with normal right atrial pressure, 3 mmHg. Aorta The aortic root at the level of the sinus of Valsalva measures 3.0 cm in diameter. Left Ventricular Outflow Tract Name Value Normal LVOT 2D LVOT Diameter 2.0 cm LVOT Doppler LVOT Peak Velocity 109 cm/s LVOT Peak Gradient 5 mmHg LVOT Mean Gradient 3 mmHg LVOT VTI 24 cm LVOT Stroke Volume 77 ml LVOT CO 5.5 l/min LVOT CI 2.6 l/min/m2 Pulmonic Valve Name Value Normal RVOT Doppler RVOT Peak Velocity 75 cm/s RVOT Peak Gradient 2 mmHg PV Doppler PV Peak Velocity 109 cm/s PV Peak Gradient 5 mmHg Mitral Valve Name Value Normal MV Diastolic Function MV E Peak Velocity 81 cm/s MV A Peak Velocity 63 cm/s MV E/A 1.3 MV Decel Time (PW) 180 ms MV Annular TDI MV E/e' (Septal) 7.2 MV E/e' (Lateral) 4.7 MV E/e' (Average) 5.9 Tricuspid Valve Name Value Normal TV Regurgitation Doppler TR Peak Velocity 197 cm/s TR Peak Gradient 16 mmHg Estimated PAP/RSVP RA Pressure 3 mmHg <=5 PA Systolic Pressure 19 mmHg <36 RV Systolic Pressure 19 mmHg <36 Aortic Valve Name Value Normal AV Doppler AV Peak Velocity 131 cm/s AV Peak Gradient 7 mmHg AV Area (Cont Eq Brady) 2.7 cm2 AV DI (Brady) 0.83 AV Regurgitation 2D LVOT Area 3.2 cm2 Ventricles Name Value Normal LV Dimensions 2D/MM IVS Diastolic Thickness (2D) 0.8 cm 0.6-1.0 LVID Diastole (2D) 5.1 cm 4.2-5.8 LVIW Diastolic Thickness (2D) 0.8 cm 0.6-1.0 LVID Systole (2D) 3.5 cm 2.5-4.0 LVOT Diameter 2.0 cm LV Mass (2D Cubed) 143.20 g 88.00-224.00 LV Mass Index (2D Cubed) 66 g/m2 49-115 Relative Wall Thickness (2D) 0.30 <=0.42 LV Fractional Shortening/Ejection Fraction 2D/MM LV Fractional Shortening (2D) 31 % 25-43 LV EF (2D Teichholz) 59 % LV EF (BP MOD) 55 % 52-72 Atria Name Value Normal LA Dimensions LA Volume (4C A-L) 33 ml LA Volume (BP A-L) 44 ml RA Dimensions RA Systolic Major [place] Length (4C) 4.9 cm 2.1-2.7 RA Area (4C) 13.4 cm2 <=18.0 EchoPAC Name Value Normal AutoEF LVCO_BiP_Q (Ayjr6LLW) 3.5 l/min LVEF_BiP_Q (Lftc0OKC) 55 % LVSV_BiP_Q (Pxtp7CVR) 50 ml LVVED_BiP_Q (Dety5RKS) 91 ml LVVES_BiP_Q (Phku9QQF) 41 ml HR_4Ch_Q (Cfpx2VDN) 70 bpm LVCO_4Ch_Q (Pzga3TBV) 3.0 l/min LVEF_4Ch_Q (Cmvl9SNQ) 55 % LVLd_4Ch_Q (Yfhe0CVD) 9.6 cm LVLs_4Ch_Q (Vlmr6HFN) 8.4 cm LVSV_4Ch_Q (Trbq0GKU) 43 ml LVVED_4Ch_Q (Fclo1YOU) 78 ml LVVES_4Ch_Q (Smqn2MXD) 35 ml HR_2Ch_Q (Dryh6SQZ) 66 bpm LVCO_2Ch_Q (Ynni2QLF) 3.9 l/min LVEF_2Ch_Q (Eytx1UHP) 56 % LVLd_2Ch_Q (Bsmm3LHB) 9.8 cm LVLs_2Ch_Q (Dfaf0PJY) 8.5 cm LVSV_2Ch_Q (Lrfu4TFH) 60 ml LVVED_2Ch_Q (Utis8BCR) 108 ml LVVES_2Ch_Q (Untb8MXX) 48 ml STANLEY LV Apical Anterior Longitudinal Strain (STANLEY) -19.7 % LV Apical Anteroseptal Longitudinal Strain (STANLEY) -20.5 % LV Apical Inferior Longitudinal Strain (STANLEY) -21.7 % LV Apical Lateral Longitudinal Strain (STANLEY) -16.4 % LV Apical Posterior Longitudinal Strain (STANLEY) -21.1 % LV Apical Septal Longitudinal Strain (STANLEY) -16.6 % AV Closure (STANLEY) 341 ms LV Basal Anterior Longitudinal Strain (STANLEY) -14.1 % LV Basal Anteroseptal Longitudinal Strain (STANLEY) -16.5 % LV Basal Inferior Longitudinal Strain (STANLEY) -9.2 % LV Basal Anterolateral Longitudinal Strain (STANLEY) -13.0 % LV Basal Inferolateral Longitudinal Strain (STANLEY) -13.4 % LV Basal Inferoseptal Longitudinal Strain (STANLEY) -9.6 % LV Global Longitudinal Strain (2C STANLEY) -15.6 % LV Global Longitudinal Strain (4C STANLEY) -14.0 % LV Global Longitudinal Strain (APLAX STANLEY) -17.8 % LV Global Longitudinal Strain (STANLEY) -15.8 % LV Mid Anterior Longitudinal Strain (STANLEY) -18.4 % LV Mid Anteroseptal Longitudinal Strain (STANLEY) -16.1 % LV Mid Inferior Longitudinal Strain (STANLEY) -16.0 % LV Mid Anterolateral Longitudinal Strain (STANLEY) -14.1 % LV Mid Inferolateral Longitudinal Strain (STANLEY) -20.5 % LV Mid Inferoseptal Longitudinal Strain (STANLEY) -15.4 % Report Signatures
--- OUTSIDE RECORDS SUMMARY | 2024-10-28 08:38 | XMS_ITS | Referral Summary ---
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 Gender Identity Not on file Sexual Orientation Not on file Last Filed Vital Signs Vital Sign Reading Time Taken Comments Blood Pressure 128/80 03/30/2022 9:32 AM JEWELRY CUTTER Pulse 99 03/30/2022 9:32 AM JEWELRY CUTTER Temperature 36.9 C (98.5 F) 03/30/2022 9:32 AM JEWELRY CUTTER Respiratory Rate 16 03/30/2022 9:32 AM JEWELRY CUTTER Oxygen Saturation 98% 03/30/2022 9:32 AM JEWELRY CUTTER Inhaled Oxygen Concentration - - Weight 84.4 kg (186 lb) 03/30/2022 9:32 AM JEWELRY CUTTER Height 188 cm (6' 2) 03/30/2022 9:32 AM JEWELRY CUTTER Body Mass Index 23.88 03/30/2022 9:32 AM JEWELRY CUTTER Plan of Treatment Not on file Insurance [facility] CHOICE PLUS [facility] HMO/PPO Address: [address] [place] [address] [facility] CHOICE PLUS [facility] HMO/PPO Address: [address] [place] [address] Care Teams Conservation Science Officer Relationship Specialty Start Date End Date Unknown, Notinfile PCP - General 08/26/18
--- OUTSIDE RECORDS SUMMARY | 2024-10-28 08:38 | XMS_ITS | Clinical Summary ---
Author Organization [facility] [address] [place]athy[place] Address [address] [place] [address] Care Team Providers Care Fundraising Specialist Name Role Phone Unavailable Primary Care Provider Unavailabl e Allergies No known active allergies Medications No known medications Active Problems No known active problems Encounters Date Type Department Care Team Description 10/19/2024 External Device Data [facility] ABSTRACTION Provider, Abstract 10/19/2024 External Device Data [facility] ABSTRACTION Provider, Abstract 10/19/2024 External Device Data [facility] ABSTRACTION Provider, Abstract 10/18/2024 3:00 PM CDT Office Visit [facility] Oncology and Hematology - [address] [facility] [address] [place] [address] Artuhr Bowling MD Acute lymphoblastic leukemia (ALL) in [...] 11/01/2024 4:35 PM CDT Telephone Check Up [facility] Oncology and Hematology - Ab [address] [facility] [address] [place] [address] Arthur Bowling MD [address] [facility] [address] [place] [address] Health Maintenance Due Date Last Done Comments HPV VACCINES (1 - Male 3-dose series) 09/06/2011 DTAP/TDAP/TD VACCINES (1 - Tdap) 09/06/2015 HEPATITIS B VACCINES (1 of 3 - 19+ 3-dose series) 08/13 Preventative Visit- Commercial 04/14/2024 INFLUENZA VACCINE (#1) 2024 Insurance [facility]
--- OUTSIDE RECORDS SUMMARY | 2024-10-28 08:38 | XMS_ITS | Clinical Summary ---
Author Organization [facility] Address [address] [address] Care Team Providers Care Health Informatics Advisor Name Role Phone Prosper Charles MD Primary Care Provider [phone] Toñito Romeo MD Unavailable Source Comments [facility],non-owned Affiliates and Associated Physician Practices is amultiple site organization consisting of ambulatory clinics and hospital sitesin [place], [place]. This disclosure is being madepursuant to the Care Everywhere program and may not contain all information available regarding this patient. 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 Gender Identity Not on file Sexual Orientation [...] of 3 - 19+ 3-dose series) 09/06/2015 HPV VACCINE (1 - 3-dose SCDM series) 09/06/2023 COVID-19 VACCINE (1 - 2023-2 5 season) 2023 DEPRESSION SCREENING 04/14/2024 INFLUENZA VACCINE (#1) 2024 ZOSTER VACCINE (1 of 2) 2046 [...] patient's age to complete this topic Insurance [facility] [id number] [place] [id number] [facility] [address] [place] [id number] [facility] Care Teams Health Informatics Advisor Relationship Specialty Start Date End Date Prosper Charles MD PCP - General Family Medicine 10/04/11 Toñito Romeo MD [address] [place] [address] Supervisor [facility] Pediatrics 10/04/11
--- OUTSIDE RECORDS SUMMARY | 2024-10-28 08:38 | XMS_ITS | Clinical Summary ---
Author Organization [facility] [place] [address] Address [address] [place] [id number] Care Team Providers Care Track Service Worker Name Role Phone Unknown, Notinfile Primary Care [...] on file Legal Sex Male 11:51 PM ENT CONSULTANT Gender Identity Not on file Sexual Orientation Not on file Obstetrics History Last Filed Vital Signs Vital Sign Reading Time Taken Comments Blood Pressure 128/80 03/30/2022 9:32 AM ENT CONSULTANT Pulse 99 03/30/2022 9:32 AM ENT CONSULTANT Temperature 36.9 C (98.5 F) 03/30/2022 9:32 AM ENT CONSULTANT Respiratory Rate 16 03/30/2022 9:32 AM ENT CONSULTANT Oxygen Saturation 98% 03/30/2022 9:32 AM ENT CONSULTANT Inhaled Oxygen Concentration - - Weight 84.4 kg (186 lb) 03/30/2022 9:32 AM ENT CONSULTANT Height 188 cm (6' 2) 03/30/2022 9:32 AM ENT CONSULTANT Body Mass Index 23.88 03/30/2022 9:32 AM ENT CONSULTANT Plan of Treatment Health Maintenance Due [...] to complete [place] [id number] [facility] [id number] [facility] Care Teams Track Service Worker Relationship Specialty Start Date End Date Unknown, Notinfile PCP - General 08/26/18
== END 2024-10-28 08:35 | disposition home or self-care (01) ==
PROVIDERS: PCP Nurse Practitioner Family; Visit Provider Internal Medicine Hematology & Oncology
DX: C91.01 Acute lymphoblastic leukemia, in remission (principal); Z08 Encounter for follow-up examination after completed treatment for malignant neoplasm
CPT/HCPCS: 93306